=== PATIENT | male | born 1965 | race Caucasian/White ===

== ENCOUNTER 2016-11-15 13:16 | Inpatient (IN) | payer OTHER ==
[~2016-11-15] VITALS: Ht 185.4 cm; Wt 118.7 kg
[~2016-11-15 13:16] MED LIST: CALC500C3 PO; DULO1CAP39 PO; FLM4 PO; FLV1 PO; IPRA1AER2 INH; LCTL45 PO; LSX40 PO; MAGNTAB4 PO; MULT-351 PO; POTA20TA16 PO; PRD20 PO; PRT/40 PO; SPRN100 PO; THIA1TAB11 PO; TPRSR25 PO
--- NOTE | 2016-11-15 13:43 | EMERGENCY ROOM VISIT NOTE ---
History Report prepared by Franchesca: Titi Garcia Under the Supervision of: Dr. Hermila Bernal M.D. First contact with patient: 13:34 Chief Complaint: ABDOMINAL PAIN Stated Complaint: STOMACH History of Present Illness The patient is a 51 year old male who presents to the Emergency Room with complaints of diffuse abdominal pain. His last alcoholic drink was about 30 minutes ago. He was referred to the Emergency Room by his PCP. He has a history of alcoholic cirrhosis of liver. He denies any history of heart disease. HPI is limited secondary to altered mental status. Source of History: patient History Limited By: AMS Position: abdomen (diffuse) Review of Systems ROS is limited secondary to altered mental status. 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 (5) Depression (6) Dyslipidemia (7) Fatty liver (8) History of alcohol abuse (9) History of DVT (deep vein thrombosis) (10) History of hemorrhoids (11) HTN (hypertension) (12) Hyperlipidemia (13) Obstructive sleep apnea (14) Stroke (15) SVT (supraventricular tachycardia) Surgical Problems: (1) H/O adenoidectomy (2) H/O hemorrhoidectomy (3) History of arthroscopic knee surgery (4) Hx of tonsillectomy Social History Problems: (1) Alcohol abuse Family History Cancer FATHER FH: alcoholism FHx: depression Social History Smoking Status: Former Smoker Alcohol Use: heavy Drug Use: none Marital Status: Housing Status: lives alone Occupation Status: employed Current/Historical Medications Scheduled Amitriptyline Hcl (Elavil), 1 TAB PO HS Aspirin (Aspir-81), 1 TAB PO DAILY Calcium Carbonate (Tums), 1,500 MG PO BID Duloxetine HCl (Cymbalta), 1 CAP PO DAILY Folic Acid (Folic Acid), 1 MG PO DAILY Furosemide (Lasix), 20 MG PO DAILY Magnesium Chloride (Slow-Mag Tab), 64 MG PO BID Metoprolol Succinate (Toprol Xl), 50 MG PO DAILY Multiple Vitamin (Multi Vitamin Mens), 1 TAB PO DAILY Pantoprazole (Pantoprazole Sodium), 40 MG PO QPM Potassium Ext Rel (Klor-Con), 20 MEQ PO QPM Prednisolone (Prelone 15MG/5ML), 13.3 ML PO DAILY Spironolactone (Spironolactone), 100 MG PO DAILY Tamsulosin Hcl (Flomax), 0.4 MG PO DAILY Scheduled PRN Ipratropium-Albuterol (Combivent Respimat), 2 PUFFS INH QID PRN for Wheezing Lactulose (Lactulose), 30 GM PO DAILY PRN for Constipation Allergies Coded Allergies: Amlodipine (Verified Allergy, Unknown, nausea/vomiting/shakes, 11/15/16) Physical Exam Vital Signs Date Time Temp Pulse Resp B/P Pulse Ox O2 Delivery O2 Flow Rate FiO2 11/15/16 17:43 118 16 94 11/15/16 17:29 95/81 11/15/16 17:13 122 15 94 11/15/16 17:08 123 22 95 11/15/16 16:58 125/82 11/15/16 16:54 118/75 11/15/16 16:08 129 23 94 11/15/16 15:58 108/75 11/15/16 15:38 128 24 96 11/15/16 15:33 107/69 11/15/16 15:31 126 21 94 11/15/16 15:16 127 22 95 11/15/16 15:01 129 17 93 11/15/16 14:58 103/94 11/15/16 14:46 134 24 95 11/15/16 14:32 113/94 11/15/16 14:31 125 28 95 11/15/16 14:21 114/81 11/15/16 14:20 144 11/15/16 14:16 178 24 11/15/16 14:06 97 Room Air 11/15/16 14:01 183 15 11/15/16 13:46 165 23 11/15/16 13:38 180 11/15/16 13:36 Room Air 11/15/16 13:32 106/84 11/15/16 13:21 36.8 189 18 97 Room Air Physical Exam CONSTITUTIONAL: Appears sedated as if from possible excess ammonia levels or benzodiazepine. Tachycardic on the monitor at 180. HEENT: No icterus, moist mucous membranes NECK: No meningismus, trachea is midline. CARDIOVASCULAR: Regular rate, normal perfusion RESPIRATORY: Unlabored breathing. Clear to auscultation. GASTROINTESTINAL: Diffuse abdominal pain. GENITOURINARY: No flank tenderness MUSCULOSKELETAL: Full range of motion NEUROLOGIC: No acute gross focal deficits. PSYCHIATRIC: Normal affect SKIN: Normal for ethnicity. Medical Decision & Procedures ER Provider Diagnostic Interpretation: X-ray results as stated below per interpretation by me and the radiologist. SINGLE VIEW CHEST CLINICAL HISTORY: Change in mental status. FINDINGS: An AP, portable, upright chest radiograph is compared to study dated 10/03/2016. The examination is degraded by portable technique, large body habitus, and patient rotation. The cardiomediastinal silhouette is unremarkable. The lungs and pleural spaces are clear. No pneumothorax is seen. The bony thorax is grossly intact. IMPRESSION: No active disease in the chest. Electronically signed by: Kyle Nuñez M.D. 11/15/2016 2:08 PM Dictated Date/Time: 11/15/2016 2:[address] results as stated below per my review and radiologist interpretation. HEAD CT NONCONTRAST CT DOSE: 1341.08 mGy.cm HISTORY: Altered mental status. Falls. TECHNIQUE: Multiaxial CT images of the head were performed without the use of intravenous contrast. Automated exposure control was utilized for this study. Comparison: Head CT 09/25/2016. Findings: Trace fluid within the left sphenoid sinus. The mastoid air cells are clear. The calvarium and skull base are intact. There is no mass, hematoma, midline shift, acute infarct. White matter hypodensity is nonspecific but suggestive of microvascular ischemic change. The ventricles and sulci demonstrate mild age-related involutional changes. There is an old small peripheral infarct within the left frontal lobe. This remains unchanged. Impression: No significant change compared to the prior study. No acute intracranial abnormality. Electronically signed by: Suhail Esparza M.D. 11/15/2016 4:49 PM Dictated Date/Time: 11/15/2016 4:[address] DOSE: HISTORY: Altered mental status. Fall. Neck pain. TECHNIQUE: Multiaxial CT images of the cervical spine were performed and reformatted in the sagittal and coronal plane without the use of contrast. COMPARISON: None. FINDINGS: No fractures. No subluxation. Prevertebral soft tissues and the C1-C2 interval are intact. No pneumothorax. IMPRESSION: No fractures within the cervical spine. Electronically signed by: Suhail Esparza M.D. 11/15/2016 4:55 PM Dictated Date/Time: 11/15/2016 4:49 PM Laboratory Results 11/15/16 13:42 Red Blood Count 4.20, Mean Corpuscular Volume 98.3, Mean Corpuscular Hemoglobin 36.0, Mean Corpuscular Hemoglobin Concent 36.6, Mean Platelet Volume 10.6, Neutrophils (%) (Auto) 81.4, Lymphocytes (%) (Auto) 10.0, Monocytes (%) (Auto) 7.6, Eosinophils (%) (Auto) 0.1, Basophils (%) (Auto) 0.2, Neutrophils # (Auto) 14.72, Lymphocytes # (Auto) 1.80, Monocytes # (Auto) 1.38, Eosinophils # (Auto) 0.01, Basophils # (Auto) 0.04 11/15/16 14:11 Test 11/15/16 13:42 11/15/16 14:02 11/15/16 14:11 White Blood Count 18.08 K/uL (4.8-10.8) Red Blood Count 4.20 M/uL (4.7-6.1) Hemoglobin 15.1 g/dL (14.0-18.0) Hematocrit 41.3 % (42-52) Mean Corpuscular Volume 98.3 fL (80-100) Mean Corpuscular Hemoglobin 36.0 pg (25-34) Mean Corpuscular Hemoglobin Concent 36.6 g/dl (32-36) Platelet Count 209 K/uL (130-400) Mean Platelet Volume 10.6 fL (7.4-10.4) Neutrophils (%) (Auto) 81.4 % Lymphocytes (%) (Auto) 10.0 % Monocytes (%) (Auto) 7.6 % Eosinophils (%) (Auto) 0.1 % Basophils (%) (Auto) 0.2 % Neutrophils # (Auto) 14.72 K/uL (1.4-6.5) Lymphocytes # (Auto) 1.80 K/uL (1.2-3.4) Monocytes # (Auto) 1.38 K/uL (0.11-0.59) Eosinophils # (Auto) 0.01 K/uL (0-0.5) Basophils # (Auto) 0.04 K/uL (0-0.2) RDW Standard Deviation 58.5 fL (36.4-46.3) RDW Coefficient of Variation 16.3 % (11.5-14.5) Immature Granulocyte % (Auto) 0.7 % Immature Granulocyte # (Auto) 0.13 K/uL (0.00-0.02) Red Blood Cell Morphology Unremarkable Prothrombin Time 12.3 SECONDS (9.0-12.0) Prothromb Time International Ratio 1.1 (0.9-1.1) Activated Partial Thromboplast Time 28.6 SECONDS (21.0-31.0) Partial Thromboplastin Ratio 1.1 Total Creatine Kinase 43 U/L (39-308) Procalcitonin 0.55 ng/mL (0-0.5) Lyme Disease IgG Antibody NEG (NEG) Lyme Disease IgM Antibody NEG (NEG) Influenza Type A Antigen Neg for Influ A (NEG) Influenza Type B Antigen Neg for Influ B (NEG) Venous Blood pH 7.41 (7.36-7.41) Venous Blood Partial Pressure CO2 39 mmHg (38.0-50.0) Venous Blood Partial Pressure O2 26 mmHg Venous Blood HCO3 24 mmol/L Venous Blood Oxygen Saturation < 60.0 % Venous Blood Base Excess 0.0 mmol/L Anion Gap 19.0 mmol/L (3-11) Est Creatinine Clear Calc Drug Dose 91.6 ml/min Estimated GFR () 80.1 Estimated GFR (Non- 69.1 BUN/Creatinine Ratio 9.7 (10-20) Calcium Level 8.0 mg/dl (8.5-10.1) Phosphorus Level 3.5 mg/dl (2.5-4.9) Magnesium Level 1.5 mg/dl (1.8-2.4) Total Bilirubin 5.4 mg/dl (0.2-1) Direct Bilirubin 4.2 mg/dl (0-0.2) Aspartate Amino Transf (AST/SGOT) 211 U/L (15-37) Alanine Aminotransferase (ALT/SGPT) 101 U/L (12-78) Alkaline Phosphatase 997 U/L (45-117) Ammonia 21.0 umol/L (11-32) Troponin I < 0.015 ng/ml (0-0.045) Total Protein 7.6 gm/dl (6.4-8.2) Albumin 2.9 gm/dl (3.4-5.0) Thyroid Stimulating Hormone (TSH) 3.600 uIu/ml (0.300-4.500) Ethyl Alcohol mg/dL 358.0 mg/dl (0-3) Labs reviewed by ED physician. Medications Administered Medications (Trade) Dose Ordered Sig/Gualberto Route Start Time Stop Time Status Last Admin Dose Admin Ondansetron HCl (Zofran Inj) 4 mg NOW STAT IV 11/15/16 14:01 11/15/16 14:03 DC 11/15/16 14:12 4 MG Adenosine (Adenosine IV) 6 mg NOW STAT IV 11/15/16 14:01 11/15/16 14:03 DC 11/15/16 14:15 6 MG Procedure Cardioversion with adenosine. ECG Indication: abdominal pain, altered mental status Rate (beats per minute): 180 Rhythm: other (Narrow complex, tachycardic) Findings: nonspecific-ST abn, other (Normal axis) ED Course 1334: Past medical records reviewed. The patient was evaluated in room B09. A complete history and physical examination was performed. 1401: Adenosine 6 mg IV, Zofran Inj 4 mg IV 1415: Zofran Inj 4 mg IV 1420: After receiving Adenosine, the patient's heart rate dropped from 180 to 120. 1711: Upon reexamination the patient is resting comfortably. I discussed results and treatment plan with the patient. He verbalizes agreement and understanding. I spoke with KANWAL Molina from the [facility]. The patient will be evaluated for further management. Medical Decision Differential diagnosis includes but is not limited to liver disease, trauma, cardiac dysrhythmia, anemia, electrolyte abnormality. I was called by nursing staff to evaluate patient for heart rate of 180. My examination he appears sedated as if under the influence of mind altering substance. He is awake when prompted and cooperative in no acute distress. He notes he has a history of liver disease and consideration is given to elevated ammonia levels. Toxidromes as well as alcohol intoxication also considered. Patient given Adenosine 6mg IV x 1 with improvement in HR from 180 to 115. Patient reports he lives alone although an extra friend and friend help him get to his doctor's appointments as needed. There is no family or other contacts available to get additional history. Therefore, an extensive screening examination was performed. These tests were notable for WBCs18, hyponatremia 126 with a mild shift, alcohol intoxication as well as ascites. Hospitalization arranged with [facility]. Consults Time Called: 1708 Consulting Physician: KANWAL Molina from the [facility] Returned Call: 1711 I spoke with KANWAL Molina from the [facility]. Impression Primary Impression: Altered mental status Additional Impression: Leukocytosis Critical Care I have personally spent greater than 30 minutes of critical care time in the direct management of this patient. This includes bedside care, interpretation of diagnostic studies, and testing, discussion with consultants, patient, and family members, and other required patient management activities. This 30 minutes is in excess of all separately billable procedures. Scribe Attestation The scribe's documentation has been prepared under my direction and personally reviewed by me in its entirety. I confirm that the note above accurately reflects all work, treatment, procedures, and medical decision making performed by me. Departure Information Dispostion Being Evaluated By Hospitalist Prescriptions Aspirin (ASPIR-81) 81 Mg Tab 1 TAB PO DAILY for 30 Days, #30 TAB 5 Refills Prov: Mina Puckett MD 11/15/16 Amitriptyline Hcl (ELAVIL) 10 Mg Tab 1 TAB PO HS for 30 Days, #30 TAB 1 Refill Prov: Mina Puckett MD 11/15/16 Tamsulosin Hcl (FLOMAX) 0.4 Mg Cap 0.4 MG PO DAILY, #30 CAP Prov: Mina Puckett MD 11/15/16 Referrals No Doctor, Assigned (PCP) Patient Instructions My [facility] Problem Qualifiers
[2016-11-15] MEDS ORDERED: OPTIRAY 320 IV PRN (14:00)
[2016-11-15] MEDS ORDERED: ONDANSETRON INJ 2 MG/ML 2 ML VIAL IV STA (14:01)
[2016-11-15] MEDS ORDERED: ADENOSINE IV SOLN 3 MG/ML 2 ML VIAL IV STA ×2 (14:01)
[2016-11-15 14:08] LABS: PARTIAL THROMBOPLASTIN RATIO 1.1
--- NOTE | 2016-11-15 14:10 | DIAGNOSTIC IMAGING REPORT ---
SINGLE VIEW CHEST CLINICAL HISTORY: Change in mental status. FINDINGS: An AP, portable, upright chest radiograph is compared to study dated 10/03/2016. The examination is degraded by portable technique, large body habitus, and patient rotation. The cardiomediastinal silhouette is unremarkable. The lungs and pleural spaces are clear. No pneumothorax is seen. The bony thorax is grossly intact. IMPRESSION: No active disease in the chest. Electronically signed by: Kyle Nuñez M.D. 11/15/2016 2:08 PM Dictated Date/Time: 11/15/2016 2:08 PM
[2016-11-15] MEDS ORDERED: ONDANSETRON INJ 2 MG/ML 2 ML VIAL IV PRN ×2 (14:15→18:00)
[2016-11-15 14:24] LABS: VEN BLD GAS O2 SATURATION < 60.0 %; VENOUS BLOOD GAS PCO2 39 mmHg (38.0-50.0); VENOUS BLOOD GAS PO2 26 mmHg
[2016-11-15 14:26] LABS: BASO % 0.2 %; BASO ABS # 0.04 K/uL (0-0.2); COMPLETE YES; EOS % 0.1 %; HEMATOCRIT 41.3 % (42-52); IG% 0.7 %; MEAN CELL VOLUME 98.3 fL (80-100); MEAN CORPUSCULAR HGB CONC 36.6 g/dl (32-36); MEAN PLATELET VOLUME 10.6 fL (7.4-10.4); MONO % 7.6 %; NEUT % 81.4 %; PLATELET COUNT 209 K/uL (130-400); WHITE BLOOD COUNT 18.08 K/uL (4.8-10.8)
[2016-11-15 14:58] LABS: PROCALCITONIN 0.55 ng/mL (0-0.5)
[2016-11-15 14:59] LABS: LYME DISEASE AB IGG NEG (NEG); LYME DISEASE AB IGM NEG (NEG)
[2016-11-15 15:27] LABS: INR 1.1 (0.9-1.1); PROTHROMBIN TIME (PATIENT) 12.3 SECONDS (9.0-12.0)
[2016-11-15 15:34] LABS: ALT/SGPT 101 U/L (12-78); AST/SGOT 211 U/L (15-37); BLOOD UREA NITROGEN 12 mg/dl (7-18); BUN/CREATININE RATIO 9.7 (10-20); CARBON DIOXIDE 20 mmol/L (21-32); CHLORIDE 84 mmol/L (98-107); GLUCOSE 123 mg/dl (70-99); MAGNESIUM 1.5 mg/dl (1.8-2.4); POTASSIUM 4.4 mmol/L (3.5-5.1); SODIUM 123 mmol/L (136-145)
[2016-11-15 15:47] LABS: ALKALINE PHOSPHATASE 997 U/L (45-117); PHOSPHORUS 3.5 mg/dl (2.5-4.9)
[2016-11-15] MEDS ORDERED: METO1TAB66 PO (15:53)
[2016-11-15] MEDS ORDERED: FURO-85 PO (15:53)
[2016-11-15] MEDS ORDERED: PRLUDL5 PO (15:53)
[2016-11-15] MEDS ORDERED: CYM/30 PO (15:53)
--- NOTE | 2016-11-15 16:51 | DIAGNOSTIC IMAGING REPORT ---
HEAD CT NONCONTRAST CT DOSE: 1341.08 mGy.cm HISTORY: Altered mental status. Falls. TECHNIQUE: Multiaxial CT images of the head were performed without the use of intravenous contrast. Automated exposure control was utilized for this study. Comparison: Head CT 09/25/2016. Findings: Trace fluid within the left sphenoid sinus. The mastoid air cells are clear. The calvarium and skull base are intact. There is no mass, hematoma, midline shift, acute infarct. White matter hypodensity is nonspecific but suggestive of microvascular ischemic change. The ventricles and sulci demonstrate mild age-related involutional changes. There is an old small peripheral infarct within the left frontal lobe. This remains unchanged. Impression: No significant change compared to the prior study. No acute intracranial abnormality. Electronically signed by: Suhail Esparza M.D. 11/15/2016 4:49 PM Dictated Date/Time: 11/15/2016 4:44 PM
--- NOTE | 2016-11-15 16:57 | DIAGNOSTIC IMAGING REPORT ---
CERVICAL SPINE CT CT DOSE: HISTORY: Altered mental status. Fall. Neck pain. TECHNIQUE: Multiaxial CT images of the cervical spine were performed and reformatted in the sagittal and coronal plane without the use of contrast. COMPARISON: None. FINDINGS: No fractures. No subluxation. Prevertebral soft tissues and the C1-C2 interval are intact. No pneumothorax. IMPRESSION: No fractures within the cervical spine. Electronically signed by: Suhail Esparza M.D. 11/15/2016 4:55 PM Dictated Date/Time: 11/15/2016 4:49 PM
--- NOTE | 2016-11-15 17:22 | DIAGNOSTIC IMAGING REPORT ---
CT ANGIOGRAPHY OF THE CHEST, ABDOMEN, AND PELVIS CLINICAL HISTORY: Altered mental status. Chest and abdominal pain. Falls. COMPARISON STUDY: CT of the abdomen and pelvis October 03, 2016 TECHNIQUE: Before and following the IV administration of 117 mL of Optiray-320, helical axial images of the chest, abdomen and pelvis were obtained. Maximal intensity projections and sagittal and coronal reformats were viewed on an independent 3D workstation. IV contrast was administered without complication. CT DOSE: 3940.95 mGy.cm FINDINGS: The caliber of the thoracic aorta is normal. There is no dissection of the thoracic or abdominal aorta. The size the heart is normal. There is no pericardial effusion. No enlarged thoracic lymph nodes are present. Gynecomastia is noted. There are no areas of consolidation to suggest pneumonia. No pneumothorax or pleural effusion is present. The caliber of the abdominal aorta is normal. There is no evidence for dissection. Marked heterogeneity of the liver is noted with decreased attenuation. The liver is cirrhotic. A 9 mm hypervascular segment 4A lesion shown on image 51 of 143 is unchanged. This is likely benign. A 6.5 x 4.9 x 3.9 cm segment 5 hepatic lesion is noted. This is similar to ultrasound September 25, 2016 but increased in size from earlier exams. Wall thickening of the distal stomach is noted. The spleen, adrenal glands and kidneys are normal with exception of a left renal cyst. There is no evidence for a bowel obstruction. There is colonic diverticulosis without evidence for acute diverticulitis. Wall thickening of portions of the colon, most evident within the ascending colon is noted. Skeletal structures are unremarkable. There is a moderate to large amount of ascites. IMPRESSION: 1. No aortic dissection. No acute process within the chest. 2. Cirrhosis with moderate to large ascites. 3. 6.5 x 4.9 x 3.9 cm hypervascular segment 5 hepatic lesion. This is similar to ultrasound of September 25, 2016 but increased in size from earlier studies. Given cirrhosis, this is concerning for hepatocellular carcinoma and correlation with AFP levels is recommended. Focal nodular hyperplasia could appear similar. 4. Wall thickening of the distal stomach. This could be due to underdistention or gastritis. 5. Colonic wall thickening, most evident within the ascending colon. This is likely due to portal hypertension although colitis could appear similar. Electronically signed by: Dharmesh Hdez M.D. 11/15/2016 5:19 PM Dictated Date/Time: 11/15/2016 4:58 PM
[2016-11-15] MEDS ORDERED: LACTULOSE SYRUP 30 GM/45 ML UDP PO PRN (18:00)
[2016-11-15] MEDS ORDERED: ASPI-232 PO (18:00)
[2016-11-15] MEDS ORDERED: IPRATROPIUM BROMIDE/ALBUTEROL respimat INH INH PRN (18:00)
[2016-11-15] MEDS ORDERED: ALUMINUM/MAGNESIUM/SIMETH (MAALOX MAX) 30 ML UDC PO PRN (18:00)
[2016-11-15] MEDS ORDERED: NITROGLYCERIN 0.4 MG SL PER TAB CHARGE SL PRN (18:00)
[2016-11-15] MEDS ORDERED: AMIT10TA6 PO (18:00)
[2016-11-15] MEDS ORDERED: TAMS0.4C38 PO (18:00)
[2016-11-15] MEDS ORDERED: VANCOMYCIN INJ 1,000 MG in SODIUM CHLORIDE 0.9% 250ML 250 ML IV SCH (18:15)
[2016-11-15] MEDS ORDERED: PIPERACILL/TAZOBAC IV 3.375 GM in DEXTROSE 5% 100ML 100 ML IV SCH (18:15)
[2016-11-15 19:10] VITALS: BP 120/84; PULSE 122; TEMP 36.7; O2SAT 95; Ht 185.4 cm; Wt 118.7 kg
[2016-11-15] MEDS ORDERED: VANCOMYCIN CONSULT ACTIVE PRN (19:45)
[2016-11-15] MEDS ORDERED: PIPERACILL/TAZOBAC CONSULT ACTIVE PRN (19:45)
[2016-11-15] MEDS: MAGNESIUM SULFATE 1GM / D5W 1 GM in PREMIXED IN D5W 100 ML IV SCH ×2 (19:57→20:30)
[2016-11-15] MEDS: MAGNESIUM CHLORIDE 64MG DELAYED REL TAB PO SCH (19:58)
[2016-11-15] MEDS: CALCIUM CARBONATE 500 MG CHEWABLE PO SCH (19:58)
[2016-11-15] MEDS: AMITRIPTYLINE HCL 10 MG TAB PO SCH (19:58)
[2016-11-15] MEDS ORDERED: MULTI-VITAMIN INFUSION INJ 10 ML, THIAMINE HCL INJ 100 MG, FoLIC ACID INJ 1 MG in SODIU... IV ONE ×2 (20:00→20:15)
[2016-11-15] MEDS ORDERED: PIPERACILL/TAZOBAC IV 3.375 GM in DEXTROSE 5% 100ML IV ONE (20:00)
--- NOTE | 2016-11-15 20:04 | Pharmacy Progress Note ---
Pharmacy Antibiotic Consult Date of Service: Nov 15, 2016. Pharmacy Dosing Scope Pharmacy is consulted to initiate VANCOMYCIN / ZOSYN IV dosing therapy, order appropriate labs and adjust drug dose/frequency. Subjective The patient is a 51 year old male admitted on Nov 15, 2016 at 18:03. Objective Height (Feet): 6 Height (Inches): 1.00 Weight (Kilograms): 111.900 Lab Results (24hrs): Laboratory Tests Test 11/15/16 13:42 11/15/16 14:11 White Blood Count 18.08 K/uL Red Blood Count 4.20 M/uL Hemoglobin 15.1 g/dL Hematocrit 41.3 % Mean Corpuscular Volume 98.3 fL Mean Corpuscular Hemoglobin 36.0 pg Mean Corpuscular Hemoglobin Concent 36.6 g/dl Platelet Count 209 K/uL Mean Platelet Volume 10.6 fL Neutrophils (%) (Auto) 81.4 % Lymphocytes (%) (Auto) 10.0 % Monocytes (%) (Auto) 7.6 % Eosinophils (%) (Auto) 0.1 % Basophils (%) (Auto) 0.2 % Neutrophils # (Auto) 14.72 K/uL Lymphocytes # (Auto) 1.80 K/uL Monocytes # (Auto) 1.38 K/uL Eosinophils # (Auto) 0.01 K/uL Basophils # (Auto) 0.04 K/uL BUN/Creatinine Ratio 9.7 Blood Urea Nitrogen 12 mg/dl Creatinine 1.20 mg/dl Assessment & Plan 51yo male admitted with diffuse abdominal pain, ordered VANCOMYCIN / ZOSYN. VANCOMYCIN: * Loading dose: VANCOMYCIN 2800mg (25mg/kg) IV X 1 dose then VANCOMYCIN 1700mg (15mg/kg) IV every 12 hours. * Goal trough level estimate: between 15 - 20 mcg/mL. * Estimated Pk parameters: Vd ~0.7 L/kg ke ~0.08 t1/2 ~9 hours * Trough level has been ordered for: . Pharmacy will continue to follow and will adjust dose/frequency as necessary. Thank you
[2016-11-15] MEDS ORDERED: VANCOMYCIN INJ 2,800 MG in SODIUM CHLORIDE 0.9% 500ML 500 ML IV SCH (20:30)
[2016-11-15] MEDS: CHLORDIAZEPOXIDE 25 MG CAP PO SCH (20:33)
[2016-11-15] MEDS ORDERED: PANTOprazole SOD 40 MG TAB PO SCH (21:00)
--- NOTE | 2016-11-15 22:59 | HISTORY & PHYSICAL EXAMINATION ---
DATE OF ADMISSION: 11/15/2016 CHIEF COMPLAINT: Abnormal labs and alcoholism. HISTORY OF PRESENT ILLNESS: This is a 51-year-old male with a past medical history significant for hypertension, asthma, hyperlipidemia, morbid obesity, sleep apnea, anxiety, history of snuff use, history of alcoholism with multiple admissions, liver cirrhosis, hepatorenal syndrome, history of SVT, history of alcoholic cardiomyopathy, history of hypomagnesemia was advised to come to the hospital because his outpatient labs done couple of days ago showed increased ammonia level, alcohol level 292, increased leukocytosis, hyponatremia, worsening LFTs and thought if some infectious process was going on. The patient is alert and oriented, says last drink was today morning; he drank 2 glasses of vodka. He has not stopped drinking though counseled in the past and was in the rehab in the past. The patient says his ambulatory function is poor at home. He lives alone, but a lady comes and helps him and his family helps him. He states he goes with the lady to get his drinks. He says, recently he bought a casket and bought piece of land to bury him and he was preparing for his . He thinks it is coming, but patient says he wanted to be a full code in case there is a chance of recovery. He complains of pain all over the body. He denies any shortness of breath, cough, blurred vision or dizziness. No nausea, no vomiting. He has some abdominal discomfort, had a small bowel movement yesterday. Currently is afebrile. The patient was tachycardic and heart rate was in the 180s in the ER. After 6 mg of adenosine his heart rate is currently in the 120s, blood pressure is stable, alert, oriented and answering all the questions appropriately. ALLERGIES: TO AMLODIPINE. PAST MEDICAL HISTORY: As mentioned above. PAST SURGICAL HISTORY: Hemorrhoidectomy with internal banding, right knee arthroscopy, tonsillectomy and adenoidectomy. MEDICATIONS: The patient is on Toprol-XL 50 mg p.o. daily, Lasix 20 mg p.o. daily, prednisolone 13.3 mL p.o. daily, Cymbalta 30 mg p.o. daily and Klor-Con 40 mEq b.i.d., promethazine 25 mg one tablet every 6 hours p.r.n., magnesium 64 mg p.o. b.i.d., Celexa 20 mg p.o. daily, Flomax 0.4 mg p.o. daily, folic acid 1 mg p.o. daily, Aldactone 100 mg p.o. daily, Protonix 40 mg p.o. daily, amitriptyline 10 mg p.o. at bedtime, Combivent 2 puffs four times daily as needed and aspirin 81 mg p.o. daily. FAMILY HISTORY: Father had colon and pancreatic cancer at 67 years of age. Mother had rheumatic heart disease. SOCIAL HISTORY: Former smoker, quit in 1984, smoked half pack a day for 1 year. Snuff one can every two months. Heavy alcohol use and multiple admissions. No drug use. Currently he is living alone and a lady comes and helps him. REVIEW OF SYMPTOMS: As per HPI. Rest of the review of symptoms is negative. PHYSICAL EXAMINATION: GENERAL: The patient is morbidly obese, not in acute distress. VITAL SIGNS: Temperature 36.8, pulse in 120s now, blood pressure 101/75 and oxygen 95% on room air. HEENT: No pallor or icterus present. Pupils are equal, round and reactive to light. NECK: No JVD, no neck masses, no carotid bruits. CARDIOVASCULAR: S1, S2 heard. Tachycardia. No murmurs. RESPIRATORY SYSTEM: Clear to auscultation bilaterally. No accessory muscle use. No wheezing, no crackles. ABDOMEN: Soft, bowel sounds present. Mild diffuse discomfort. Mild distention. CENTRAL NERVOUS SYSTEM: Cranial nerves II-XII are grossly intact. Nonfocal. EXTREMITIES: No edema, no erythema. LABORATORIES: WBC 18.08, hemoglobin 15.1, hematocrit 41.3, platelets 209. Sodium 123, potassium 4.4, chloride 20, BUN 12, creatinine 1.2, serum glucose 123, calcium 8, phosphorous 3.5, magnesium 1.5, total bilirubin 5.4, direct bilirubin 4.2, AST 211, ALT 101, alkaline phosphatase 997. Ammonia level 21, total creatinine kinase 43, troponin I less than 0.015. Procalcitonin 0.55. TSH 3.6. PT 12.3, INR 1.1, PTT 28.6. Venous blood gases; pH 7.4, pCO2 39, pO2 26, bicarbonate 24, oxygen less than 60%. Toxicology; ethyl alcohol level 358. Lyme disease; negative. Negative for influenza. CT of the head scan; no significant change compared to prior study, no acute intracranial abnormalities seen. Chest x-ray; no acute disease in the chest. Cervical spine CT; no fractures of the cervical spine. CT angiogram of the chest, abdomen and pelvis; no aortic dissection or acute process within the chest. Cirrhosis with moderate to large ascites 6.5 x 4.9 x 3.9 cm hepatic lesion; this is similar to ultrasound of August 2016, but increased in size from the earlier studies. Given cirrhosis, this is concerning for hepatocellular carcinoma and correlation is recommended. Focal nodular hyperplasia could appear similar. EKG showed SVT at the rate of 179 when the patient initially came in. Repeat EKG showed sinus tachycardia with a rate of 122. Nonspecific ST change is seen. ASSESSMENT AND PLAN: This is a 51-year-old with chronic alcoholism, who was sent in because of abnormal laboratories and possible sepsis. 1. Possible sepsis, source could be spontaneous bacterial peritonitis with tachycardia and elevated white count. We will place him on IV Zosyn and IV vancomycin. We will do blood cultures, urine cultures and may tap ascitic fluid for any infection We will follow lactic acid levels. We will place him on IV normal saline at 100 mL for now and closely monitor on the tele floor. 2. Alcoholism. He recently was in the hospital in September for alcoholic hepatitis and electrolyte abnormalities. He was placed on prednisone which was supposed to be tapered.Will continue current home dose of prednisolone; Discriminant score is not that high. The patient continues to drink in spite of previous rehab and counseling. He says he is preparing for his . His ammonia level is okay. We will give him banana bag and place on Librium around the clock and Ativan p.r.n. for alcohol withdrawal and closely monitor on the tele floor. 3. Question of liver mass which has increased in size from the previous ultrasound in August, but MRI done as outpatient and there was no suggestion of hepatocellular carcinoma, but his AFP level was somewhat high. We will consult gastroenterology for further opinion. 4. History of thrombocytopenia .Ok today. We will follow laboratories. 5. History of generalized weakness, pain and fall secondary to his alcoholism. Physical and occupational therapies when patient is more stable. 6. History of stroke, no residual deficits. We are holding aspirin for now. 7. History of depression, on Cymbalta. We will follow his liver function tests. 8. History of chronic systolic heart failure secondary to alcoholic cardiomyopathy, we will be holding the diuretics for now for sepsis. We will monitor for any volume overload. Echocardiogram done on last admission in September shows ejection fraction of 60-65% and grade 1 diastolic dysfunction. 9. History of deep vein thrombosis in the right cephalic vein in 2013, not on any anticoagulation. 10. History of supraventricular tachycardia. The patient received adenosine in the Emergency Room. Missed his Lopressor today. We will continue his home dose of metoprolol with the holding parameters. If any issues, we will consult cardiology. His nuclear stress in 2013 was nonischemic. 11. Hyponatremia; sodium is 123, mostly secondary to his alcoholism and it improved with normal fluids on last admission. We will follow laboratories closely to prevent overcorrection. If not improving, we will consult nephrology. Hold diuretics. Deep venous thrombosis prophylaxis, SCDs for now. DISPOSITION: Admit to tele floor. Level 1. Full code, as per discussion with the patient only on the chance of recovery. Closely monitor on tele floor. MTDD
[2016-11-15 23:54] VITALS: BP 95/68; PULSE 112; TEMP 36.7; O2SAT 98
[2016-11-16 00:19] LABS: URINE APPEARANCE CLOUDY (CLEAR); URINE COLOR ORANGE; URINE NITRITE POS (NEG); URINE PH 5.5 (4.5-7.5); URINE SPECIFIC GRAVITY > 1.045 (1.000-1.030); UROBILINOGEN POS (NEG); ZZUR CULT IF INDIC CLEAN CATCH NO
[2016-11-16 00:42] LABS: MANUAL MICROSCOPIC REQUIRED? NO; REVIEW REQ? YES; URINE BILIRUBIN 2+ (NEG)
[2016-11-16 01:00] LABS: BENZODIAZEPINE, URINE POS (NEG); COCAINE,URINE NEG (NEG); PHENCYCLIDINE, URINE NEG (NEG)
[2016-11-16] MEDS: LORAZEPAM 2 MG/ML 1 ML VIAL IV PRN ×6 (01:04→12:58)
[2016-11-16] MEDS: PIPERACILL/TAZOBAC IV 3.375 GM in DEXTROSE 5% 100ML IV SCH ×3 (01:54→17:33)
[2016-11-16 02:12] LABS: BUN/CREATININE RATIO 11.7 (10-20); CALCIUM 7.2 mg/dl (8.5-10.1); CREATININE 1.2 mg/dl (0.60-1.40); POTASSIUM 4.4 mmol/L (3.5-5.1)
[2016-11-16] MEDS ORDERED: SODIUM CHLORIDE 0.9% 1000ML 1,000 ML IV SCH ×3 (02:15→06:30)
[2016-11-16] MEDS ORDERED: SODIUM CHLORIDE 0.9% 1000ML 1,000 ML IV ONE (02:15)
[2016-11-16 04:18] VITALS: BP 108/66; PULSE 125; TEMP 37; O2SAT 96
[2016-11-16] MEDS: SODIUM CHLORIDE 0.9% 1000ML 1,000 ML IV SCH ×2 (06:12→09:48)
[2016-11-16 06:42] LABS: HEMATOCRIT 32.5 % (42-52); MEAN CELL VOLUME 96.2 fL (80-100); MEAN CORPUSCULAR HEMOGLOBIN 36.1 pg (25-34); MEAN CORPUSCULAR HGB CONC 37.5 g/dl (32-36); MEAN PLATELET VOLUME 10.6 fL (7.4-10.4); PLATELET COUNT 132 K/uL (130-400); RED BLOOD COUNT 3.38 M/uL (4.7-6.1); WHITE BLOOD COUNT 16.97 K/uL (4.8-10.8)
--- NOTE | 2016-11-16 06:44 | Progress Note ---
Internal Med Progress Note Date of Service: Nov 16, 2016. Provider Documentation: Lactic acid worsening 3 to 4.4 SBP 90s CR 120s AP Hypotension sepsis, hyoovolemia hold BB for now, increase IVF ff lactic acid CS, continue Cristopher Mejias Vital Signs: Date Time Temp Pulse Resp B/P Pulse Ox O2 Delivery O2 Flow Rate FiO2 11/16/16 04:18 37.0 125 17 108/66 96 Nasal Cannula 2.0 11/16/16 04:00 Nasal Cannula 2.0 11/15/16 23:59 Nasal Cannula 2.0 11/15/16 23:54 36.7 112 21 95/68 98 Nasal Cannula 2.0 11/15/16 19:10 36.7 122 18 120/84 95 Nasal Cannula 2.0 11/15/16 17:43 118 16 94 11/15/16 17:29 95/81 11/15/16 17:13 122 15 94 11/15/16 17:08 123 22 95 11/15/16 16:58 125/82 11/15/16 16:54 118/75 11/15/16 16:08 129 23 94 11/15/16 15:58 108/75 11/15/16 15:38 128 24 96 11/15/16 15:33 107/69 11/15/16 15:31 126 21 94 11/15/16 15:16 127 22 95 11/15/16 15:01 129 17 93 11/15/16 14:58 103/94 11/15/16 14:46 134 24 95 11/15/16 14:32 113/94 11/15/16 14:31 125 28 95 11/15/16 14:21 114/81 11/15/16 14:20 144 11/15/16 14:16 178 24 11/15/16 14:06 97 Room Air 11/15/16 14:01 183 15 11/15/16 13:46 165 23 11/15/16 13:38 180 11/15/16 13:36 Room Air 11/15/16 13:32 106/84 11/15/16 13:21 36.8 189 18 97 Room Air Lab Results: Results Past 24 Hours Test 11/15/16 13:42 11/15/16 14:02 11/15/16 14:11 11/15/16 19:24 Range/Units White Blood Count 18.08 4.8-10.8 K/uL Red Blood Count 4.20 4.7-6.1 M/uL Hemoglobin 15.1 14.0-18.0 g/dL Hematocrit 41.3 42-52 % Mean Corpuscular Volume 98.3 80-100 fL Mean Corpuscular Hemoglobin 36.0 25-34 pg Mean Corpuscular Hemoglobin Concent 36.6 32-36 g/dl Platelet Count 209 130-400 K/uL Mean Platelet Volume 10.6 7.4-10.4 fL Neutrophils (%) (Auto) 81.4 % Lymphocytes (%) (Auto) 10.0 % Monocytes (%) (Auto) 7.6 % Eosinophils (%) (Auto) 0.1 % Basophils (%) (Auto) 0.2 % Neutrophils # (Auto) 14.72 1.4-6.5 K/uL Lymphocytes # (Auto) 1.80 1.2-3.4 K/uL Monocytes # (Auto) 1.38 0.11-0.59 K/uL Eosinophils # (Auto) 0.01 0-0.5 K/uL Basophils # (Auto) 0.04 0-0.2 K/uL RDW Standard Deviation 58.5 36.4-46.3 fL RDW Coefficient of Variation 16.3 11.5-14.5 % Immature Granulocyte % (Auto) 0.7 % Immature Granulocyte # (Auto) 0.13 0.00-0.02 K/uL Red Blood Cell Morphology Unremarkable Prothrombin Time 12.3 9.0-12.0 SECONDS Prothromb Time International Ratio 1.1 0.9-1.1 Activated Partial Thromboplast Time 28.6 21.0-31.0 SECONDS Partial Thromboplastin Ratio 1.1 Total Creatine Kinase 43 39-308 U/L Procalcitonin 0.55 0-0.5 ng/mL Lyme Disease IgG Antibody NEG NEG Lyme Disease IgM Antibody NEG NEG Influenza Type A Antigen Neg for Influ A NEG Influenza Type B Antigen Neg for Influ B NEG Venous Blood pH 7.41 7.36-7.41 Venous Blood Partial Pressure CO2 39 38.0-50.0 mmHg Venous Blood Partial Pressure O2 26 mmHg Venous Blood HCO3 24 mmol/L Venous Blood Oxygen Saturation < 60.0 % Venous Blood Base Excess 0.0 mmol/L Sodium Level 123 136-145 mmol/L Potassium Level 4.4 3.5-5.1 mmol/L Chloride Level 84 98-107 mmol/L Carbon Dioxide Level 20 21-32 mmol/L Anion Gap 19.0 3-11 mmol/L Blood Urea Nitrogen 12 7-18 mg/dl Creatinine 1.20 0.60-1.40 mg/dl Est Creatinine Clear Calc Drug Dose 91.6 ml/min Estimated GFR () 80.1 Estimated GFR (Non- 69.1 BUN/Creatinine Ratio 9.7 1020 Random Glucose 123 70-99 mg/dl Calcium Level 8.0 8.5-10.1 mg/dl Phosphorus Level 3.5 2.5-4.9 mg/dl Magnesium Level 1.5 1.8-2.4 mg/dl Total Bilirubin 5.4 0.2-1 mg/dl Direct Bilirubin 4.2 0-0.2 mg/dl Aspartate Amino Transf (AST/SGOT) 211 15-37 U/L Alanine Aminotransferase (ALT/SGPT) 101 12-78 U/L Alkaline Phosphatase 997 45-117 U/L Ammonia 21.0 11-32 umol/L Troponin I < 0.015 0-0.045 ng/ml Total Protein 7.6 6.4-8.2 gm/dl Albumin 2.9 3.4-5.0 gm/dl Thyroid Stimulating Hormone (TSH) 3.600 0.300-4.500 uIu/ml Ethyl Alcohol mg/dL 358.0 0-3 mg/dl Lactic Acid Level 3.5 0.4-2.0 mmol/L Test 11/15/16 23:55 11/16/16 00:55 11/16/16 01:34 11/16/16 06:05 Range/Units Urine Color ORANGE Urine Appearance CLOUDY CLEAR Urine pH 5.5 4.5-7.5 Urine Specific [place] > 1.045 1.000-1.030 Urine Protein TRACE NEG Urine Glucose (UA) NEG NEG Urine Ketones NEG NEG Urine Occult Blood NEG NEG Urine Nitrite POS NEG Urine Bilirubin 2+ NEG Urine Urobilinogen POS NEG Urine Leukocyte Esterase TRACE NEG Urine WBC (Auto) 1-5 0-5 /hpf Urine RBC (Auto) 0-4 0-4 /hpf Urine Hyaline Casts (Auto) 10-30 0-5 /lpf Urine Epithelial Cells (Auto) 10-20 0-5 /lpf Urine Bacteria (Auto) NEG NEG Urine Pathogenic Casts 0 /lpf Urine Opiates Screen NEG NEG Urine Methadone, Qualitative NEG NEG Urine Barbiturates NEG NEG Urine Phencyclidine (PCP) Level NEG NEG Ur Amphetamine/Methamphetamine NEG NEG MDMA (Ecstasy) Screen NEG NEG Urine Benzodiazepines Screen POS NEG Urine Cocaine Metabolite NEG NEG Urine Marijuana (THC) NEG NEG Lactic Acid Level 4.4 0.4-2.0 mmol/L Sodium Level 126 136-145 mmol/L Potassium Level 4.4 3.5-5.1 mmol/L Chloride Level 87 98-107 mmol/L Carbon Dioxide Level 28 21-32 mmol/L Anion Gap 11.0 3-11 mmol/L Blood Urea Nitrogen 14 7-18 mg/dl Creatinine 1.20 0.60-1.40 mg/dl Est Creatinine Clear Calc Drug Dose 94.4 ml/min Estimated GFR () 80.1 Estimated GFR (Non- 69.1 BUN/Creatinine Ratio 11.7 10-20 Random Glucose 87 70-99 mg/dl Osmolality 300 280-300 mOsm/kg Calcium Level 7.2 8.5-10.1 mg/dl Albumin 2.4 3.4-5.0 gm/dl Test 11/16/16 06:17 Range/Units White Blood Count 16.97 4.8-10.8 K/uL Red Blood Count 3.38 4.7-6.1 M/uL Hemoglobin 12.2 14.0-18.0 g/dL Hematocrit 32.5 42-52 % Mean Corpuscular Volume 96.2 80-100 fL Mean Corpuscular Hemoglobin 36.1 25-34 pg Mean Corpuscular Hemoglobin Concent 37.5 32-36 g/dl Platelet Count 132 130-400 K/uL Mean Platelet Volume 10.6 7.4-10.4 fL RDW Standard Deviation 56.5 36.4-46.3 fL RDW Coefficient of Variation 16.2 11.5-14.5 % Microbiology Results 11/16/16 Blood Culture, Received Pending 11/16/16 Blood Culture, Received Pending 11/15/16 Urine Culture, Received Pending
[2016-11-16 07:13] LABS: ALB/GLOB RATIO 0.6 (0.9-2); BUN/CREATININE RATIO 11.2 (10-20); CALCIUM 7.1 mg/dl (8.5-10.1); CREATININE 1.3 mg/dl (0.60-1.40); MAGNESIUM 1.3 mg/dl (1.8-2.4); POTASSIUM 4.9 mmol/L (3.5-5.1)
[2016-11-16 07:32] VITALS: BP 110/77; PULSE 125; TEMP 37; O2SAT 94
[2016-11-16 07:42] LABS: COMPLETE YES; HYPOCHROMIA PRESENT; META ABS # 0.14 K/uL (0-0); METAMYELOCYTE % 0.8 %; NEUTROPHILS % 99.2 %; POLYCHROMASIA 1+
[2016-11-16] MEDS: VANCOMYCIN INJ 1,700 MG in SODIUM CHLORIDE 0.9% 500ML 500 ML IV SCH ×2 (08:04→19:46)
[2016-11-16] MEDS: MAGNESIUM SULFATE 1GM / D5W 1 GM in PREMIXED IN D5W 100 ML IV SCH ×3 (08:04→09:48)
[2016-11-16] MEDS: TAMSULOSIN HCL 0.4 MG CAP PO SCH (08:05)
[2016-11-16] MEDS: FoLIC ACID INJ 1 MG in SYRINGE 9.8 ML IV SCH (08:05)
[2016-11-16] MEDS: MULTIVITAMIN TAB PO SCH (08:05)
[2016-11-16] MEDS: DULOXETINE (CYMBALTA) 30 MG CAP PO SCH (08:05)
[2016-11-16] MEDS: THIAMINE HCL INJ 100 MG in SYRINGE 9 ML IV SCH (08:05)
[2016-11-16] MEDS: LACTULOSE SYRUP 30 GM/45 ML UDP PO SCH (08:06)
[2016-11-16] MEDS: MAGNESIUM CHLORIDE 64MG DELAYED REL TAB PO SCH ×2 (08:06→20:28)
[2016-11-16] MEDS: CEROVITE ADV FORMULA TAB PO SCH (08:06)
[2016-11-16] MEDS: CALCIUM CARBONATE 500 MG CHEWABLE PO SCH ×2 (08:07→20:29)
[2016-11-16] MEDS: CHLORDIAZEPOXIDE 25 MG CAP PO SCH ×3 (08:14→21:35)
[2016-11-16 08:39] VITALS: BP 115/75
[2016-11-16] MEDS ORDERED: prednisoLONE SYRUP 15 MG/5 ML PO SCH (09:00)
[2016-11-16] MEDS ORDERED: METOPROLOL SUCC 25MG EXT REL TAB PO SCH (09:00)
[2016-11-16] MEDS ORDERED: METOPROLOL SUCC 50MG EXT REL TAB PO SCH (09:00)
[2016-11-16] MEDS ORDERED: FUROSEMIDE 40 MG TAB PO ONE (11:15)
[2016-11-16] MEDS ORDERED: SPIRONOLACTONE 100 MG TAB PO ONE (11:15)
[2016-11-16 11:25] VITALS: BP 123/80; PULSE 130; TEMP 37.2; O2SAT 92
[2016-11-16] MEDS: D5W AND NSS 1,000 ML IV SCH ×2 (13:30→19:15)
--- NOTE | 2016-11-16 15:01 | DIAGNOSTIC IMAGING REPORT ---
ULTRASOUND GUIDED DIAGNOSTIC PARACENTESIS CLINICAL HISTORY: Ascites. COMPARISON STUDY: CT of the chest, abdomen and pelvis November 15, 2016. PROCEDURE: The patient was unable to give consent due to altered mental status. Therefore, the risks, benefits, and alternatives to the procedure were discussed with the patient's power of museum host/hostess including the risk of bleeding, infection and injury to adjacent structures. They agreed to the procedure and informed written consent was obtained. Following real-time ultrasound localization, the skin of the right lower quadrant was prepped and draped. Following local anesthesia with Xylocaine, the sheath paracentesis needle was inserted and approximately 1 liters of straw-colored fluid was removed by vacuum suction. The fluid was sent to the laboratory for analysis as ordered. The patient tolerated the procedure well and no immediate complications were evident. IMPRESSION: Ultrasound-guided diagnostic paracentesis with removal of 1 liters of ascites. The fluid was sent to the laboratory for analysis. Electronically signed by: Dharmesh Hdez M.D. 11/16/2016 2:59 PM Dictated Date/Time: 11/16/2016 2:58 PM
[2016-11-16 15:46] VITALS: BP 121/66; PULSE 73; TEMP 37.1; O2SAT 98
--- NOTE | 2016-11-16 16:20 | Gastrointestinal Consultation ---
Gastrointestinal Consultation Date of Consultation: Nov 16, 2016 Attending Physician: Mina Puckett Consulting Physician: Jeremie Obrien Reason for Consultation: Cirrhosis History of Present Illness Patient is a 51 year old male w ETOH cirrhosis who I referred to the ED for admission due to increased WBC over 17K and increasing LFTs in outpt labs. I saw pt at GI clinic on 11/13/16 accompanied by his cousin, for f/u after pt's hospitalization in September for ETOH hepatitis. He had completed 1 month's worth of Prednisolone. He was found to have slow in mentation, also smells of ETOH, c/o abd pressure and distension. He recently also had a fall and his head , but refused ED visit for eval. His cousin Dilan had mentioned pt has a " wish" started to look as casket and finalizing his will. Outpt labs ordered including CBC, CMP, PT/INR. It was noted that his WBC is rising to 17K, previously around 14K suspected to be elevated due to steroid use. His H/H is stable at 14/40. He was hyponatremic at 129, normal BUN/Cr, LFT w Tbili of 4.6, AST 260, ALT 106, AP 846. His ammonia level was elevated at 70, ETOH level 292. I called pt's caregiver and advised him to come to ED for eval and treatment. Upon arrival, repeat labs similar to above values. He had several workup including head CT, CXR, cervical xray - unremarkable. His blood and urine cx pending. He did have CT angiography w evidence of cirrhotic liver, large ascites , about 6cm sized hypervascular segment 5 liver lesion suspicious for HCC. This had been evaluated by liver MRI and suspected to be macrogenerative nodule. His AFP was borderline elevated previously and he was referred to Hepatology at [facility] for liver lesion eval but never had appt set up. Currently pt is sedated for DTs. He has been receiving Librium and Ativan. He opens eyes when name called, could only answer simple yes/no to questions. He is confused, oriented to place though. He is c/o abdominal pressure, not pain. Limited ROS could be obtained. Past Medical/Surgical History Medical Problems: (1) Alcoholic cirrhosis of liver with ascites Status: Acute (2) Altered mental status Status: Acute (3) Decreased vision in both eyes Status: Acute (4) Leukocytosis Status: Acute (5) TIA (transient ischemic attack) Status: Acute Past Surgical History: Hemorrhoidectomy T&A Arthroscopic knee surgery Family History Cancer FATHER FH: alcoholism FHx: depression Social History Smoking Status: Former Smoker Alcohol Use: heavy (At least 3 bottles of Vodka a week per his cousin's report) Drug Use: none Marital Status: Housing Status: lives alone Occupation Status: employed Allergies Coded Allergies: Amlodipine (Verified Allergy, Unknown, nausea/vomiting/shakes, 11/15/16) Current Medications Home Meds and Scripts Medications Dose Route/Sig Max Daily Dose Days Date Category Aspir-81 (Aspirin) 81 Mg Tab 1 Tab PO DAILY 30 11/15/16 Rx Elavil (Amitriptyline Hcl) 10 Mg Tab 1 Tab PO HS 30 11/15/16 Rx Flomax (Tamsulosin Hcl) 0.4 Mg Cap 0.4 Mg PO DAILY 11/15/16 Rx Prelone 15MG/5ML (Prednisolone) 15 Mg/5 Ml Syrp 13.3 Ml PO DAILY 11/15/16 Reported Cymbalta (Duloxetine HCl) 30 Mg Cap 1 Cap PO DAILY 11/15/16 Reported Toprol Xl (Metoprolol Succinate) 50 Mg Tab 50 Mg PO DAILY 11/15/16 Reported Lactulose 30 Gm/45 Ml Syrp 30 Gm PO DAILY PRN 30 10/06/16 Rx Spironolactone 100 Mg Tab 100 Mg PO DAILY 30 10/06/16 Rx Tums (Calcium Carbonate) 500 Mg Chew 1,500 Mg PO BID 10/03/16 Reported Klor-Con (Potassium Chloride) 20 Meq Tabcr 20 Meq PO QPM 11/17/15 Reported Slow-Mag Tab (Magnesium Chloride) 64 Mg Tabcr 64 Mg PO BID 11/17/15 Reported Combivent Respimat (Ipratropium-Albuterol) 1 Aer Aer 2 Puffs INH QID PRN 06/12/14 Reported Pantoprazole Sodium (Pantoprazole) 40 Mg Tab 40 Mg PO QPM 06/12/14 Reported Folic Acid 1 Mg Tab 1 Mg PO DAILY 06/12/14 Reported Multi Vitamin Mens (Multiple Vitamin) 1 Tab Tab 1 Tab PO DAILY 06/12/14 Reported Review of Systems Constitutional: + see HPI, No fever Respiratory: No cough, No shortness of breath Abdomen: + see HPI Neuro: + see HPI Physical Exam Date Time Temp Pulse Resp B/P Pulse Ox O2 Delivery O2 Flow Rate FiO2 11/16/16 15:46 37.1 73 22 121/66 98 11/16/16 12:00 Nasal Cannula 11/16/16 11:25 37.2 130 16 123/80 92 Room Air 11/16/16 08:39 115/75 11/16/16 08:00 Nasal Cannula 11/16/16 07:32 37.0 125 18 110/77 94 Room Air 11/16/16 04:18 37.0 125 17 108/66 96 Nasal Cannula 2.0 11/16/16 04:00 Nasal Cannula 2.0 11/15/16 23:59 Nasal Cannula 2.0 11/15/16 23:54 36.7 112 21 95/68 98 Nasal Cannula 2.0 11/15/16 19:10 36.7 122 18 120/84 95 Nasal Cannula 2.0 11/15/16 17:43 118 16 94 11/15/16 17:29 95/81 11/15/16 17:13 122 15 94 11/15/16 17:08 123 22 95 11/15/16 16:58 125/82 11/15/16 16:54 118/75 11/15/16 16:08 129 23 94 11/15/16 15:58 108/75 General Appearance: + pertinent finding (Appears sedated) Respiratory/Chest: no respiratory distress, no accessory muscle use, + decreased breath sounds Cardiovascular: regular rate, rhythm, no gallop, no murmur Abdomen: non tender, + abnormal bowel sounds (hypoactive), + distended Extremities: + swelling (trace edema) Neurologic/Psych: + pertinent finding (sedated, undergoing DTs) Skin: + jaundice Laboratory Results Last 24 Hours Test 11/15/16 19:24 11/15/16 23:55 11/16/16 00:00 11/16/16 00:55 Lactic Acid Level 3.5 mmol/L 4.4 mmol/L Urine Color ORANGE Urine Appearance CLOUDY Urine pH 5.5 Urine Specific [place] > 1.045 Urine Protein TRACE Urine Glucose (UA) NEG Urine Ketones NEG Urine Occult Blood NEG Urine Nitrite POS Urine Bilirubin 2+ Urine Urobilinogen POS Urine Leukocyte Esterase TRACE Urine WBC (Auto) 1-5 /hpf Urine RBC (Auto) 0-4 /hpf Urine Hyaline Casts (Auto) 10-30 /lpf Urine Epithelial Cells (Auto) 10-20 /lpf Urine Bacteria (Auto) NEG Urine Pathogenic Casts /lpf Urine Opiates Screen NEG Urine Methadone, Qualitative NEG Urine Barbiturates NEG Urine Phencyclidine (PCP) Level NEG Ur Amphetamine/Methamphetamine NEG MDMA (Ecstasy) Screen NEG Urine Benzodiazepines Screen POS Urine Cocaine Metabolite NEG Urine Marijuana (THC) NEG Test 11/16/16 01:34 11/16/16 06:05 11/16/16 06:17 11/16/16 11:55 Sodium Level 126 mmol/L 125 mmol/L 124 mmol/L Potassium Level 4.4 mmol/L 4.9 mmol/L Chloride Level 87 mmol/L 89 mmol/L Carbon Dioxide Level 28 mmol/L 21 mmol/L Anion Gap 11.0 mmol/L 15.0 mmol/L Blood Urea Nitrogen 14 mg/dl 15 mg/dl Creatinine 1.20 mg/dl 1.30 mg/dl Est Creatinine Clear Calc Drug Dose 94.4 ml/min 89.1 ml/min Estimated GFR () 80.1 72.7 Estimated GFR (Non- 69.1 62.7 BUN/Creatinine Ratio 11.7 11.2 Random Glucose 87 mg/dl 122 mg/dl Osmolality 300 mOsm/kg Calcium Level 7.2 mg/dl 7.1 mg/dl Albumin 2.4 gm/dl 2.0 gm/dl Lactic Acid Level 3.7 mmol/L 2.4 mmol/L White Blood Count 16.97 K/uL Red Blood Count 3.38 M/uL Hemoglobin 12.2 g/dL Hematocrit 32.5 % Mean Corpuscular Volume 96.2 fL Mean Corpuscular Hemoglobin 36.1 pg Mean Corpuscular Hemoglobin Concent 37.5 g/dl Platelet Count 132 K/uL Mean Platelet Volume 10.6 fL RDW Standard Deviation 56.5 fL RDW Coefficient of Variation 16.2 % Neutrophils % (Manual) 99.2 % Lymphocytes % (Manual) 0.0 % Metamyelocytes % 0.8 % Neutrophils # (Manual) 16.83 K/uL Total Absolute Neutrophils 16.83 K/uL Total Absolute Lymphocytes 0.00 K/uL Metamyelocytes # 0.14 K/uL Polychromasia 1+ Hypochromasia PRESENT Macrocytosis PRESENT Magnesium Level 1.3 mg/dl Total Bilirubin 5.2 mg/dl Aspartate Amino Transf (AST/SGOT) 211 U/L Alanine Aminotransferase (ALT/SGPT) 88 U/L Alkaline Phosphatase 646 U/L Total Protein 5.5 gm/dl Globulin 3.5 gm/dl Albumin/Globulin Ratio 0.6 Impression Patient is a 51 year old male w ETOH cirrhosis, admitted for sepsis and likely ETOH hepatitis eval and management. MELD 16. Maddrey's score <32. Plan - Head CT negative for acute process; F/U urine and blood cx - U/S guided diagnostic and therapeutic paracentesis; verbal consent to be obtained from pt's POA (Selena Rodriguez, ex ) as pt is currently undergoing DTs. - Repeat AFP; request for Hepatology referral at [facility] to eval liver lesion done, appt pending. - No indication for Prednisolone for Maddreys Score <32. - Continue DT protocol - Consider psych consult for depression eval, ETOH abuse though pt had repeatedly refused rehab in the past. - Continue Protonix 40mg BID, Lactulose 30g daily, Lasix 40mg, Spironolactone 100mg - Low Salt diet I performed a history and physical examination of the patient. I have discussed the patient's case, impression and plan with KANWAL Ortiz on . Her note reflects my findings and plan. Look for infectious source. Agree with paracentesis. Jeremie Obrien MD
[2016-11-16 16:27] LABS: PERIT FL WBC 110 /uL (0-300); PERITONEAL FLUID RBC < 3000 /uL
--- NOTE | 2016-11-16 17:51 | Progress Note ---
Internal Med Progress Note Date of Service: Nov 16, 2016. Provider Documentation: SUBJECTIVE: mostly sedated from benzo's for alcohol withdrawal opens eyes on calling moves extremities OBJECTIVE: Vital Signs-as noted below Exam: General-drowsy Neck-no neck masses Lungs-cta b/l no wheezing or crackles Heart-s1 and s2 heard tachycardia no murmurs Abdomen-soft bowel sounds present non tender no distension Extremities-no erythema Neuro-drowsy moves extremities Lab data as noted below. ASSESSMENT & PLAN: : This is a 51-year-old with chronic alcoholism, who was sent in because of abnormal laboratories and possible sepsis. 1. Possible sepsis, source could be spontaneous bacterial peritonitis with tachycardia and elevated white count.UTI? ascitic fluid analysis no elevated wbc. elevated lactic acid mostly from sepsis and an possible element of alcoholism. Repeat lactic acid trending down on iv vanco and Zosyn will f/u cx BP stable contiue fluids for now hold B mag fo now. 2. Alcoholism. He recently was in the hospital in September for alcoholic hepatitis and electrolyte abnormalities. He was placed on prednisone which was supposed to be tapered. Prednisolone; stopped by GI as Discriminant score is not that high. The patient continues to drink in spite of previous rehab and counseling. He says he is preparing for his . His ammonia level is okay. Received banana bag and placed on Librium around the clock and Ativan p.r.n. for alcohol withdrawal and closely monitor on the tele floor. Mostly sedated today close monitor. 3. Question of liver mass which has increased in size from the previous ultrasound in August, but MRI done as outpatient and there was no suggestion of hepatocellular carcinoma, but his AFP level was somewhat high. Repeat AFP levels and followup with Hepatology at [facility] as pe GI. . 4. History of thrombocytopenia .132 today. We will follow laboratories. 5. History of generalized weakness, pain and fall secondary to his alcoholism. Physical and occupational therapies when patient is more stable. 6. History of stroke, no residual deficits. We are holding aspirin for now. 7. History of depression, on Cymbalta. We will follow his liver function tests. 8. History of chronic systolic heart failure secondary to alcoholic cardiomyopathy, we will be holding the diuretics for now for sepsis. We will monitor for any volume overload. Echocardiogram done on last admission in September shows ejection fraction of 60-65% and grade 1 diastolic dysfunction. Lasix and Aldactone on hold. On fluids. will monitor. 9. History of deep vein thrombosis in the right cephalic vein in 2013, not on any anticoagulation. 10. History of supraventricular tachycardia. The patient received adenosine in the Emergency Room. Missed his Lopressor today. Holding Lopressor for sepsis. Restart when sepsis improves. 11. Hyponatremia; sodium is 123, mostly secondary to his alcoholism and it improved with normal fluids on last admission. We will follow laboratories closely to prevent overcorrection. If not improving, we will consult nephrology. Hold diuretics. f/u labs. Deep venous thrombosis prophylaxis, SCDs for now. DISPOSITION:Monitor in tele floor. Level 1. Full code, as per discussion with the patient only on the chance of recovery. Closely monitor on tele floor. Will d/w with patient when more stable about further care as non compliant with the advise and preparing for his . Code status: at admission patient wanted to be full code if there is chance of recovery only. Vital Signs: Date Time Temp Pulse Resp B/P Pulse Ox O2 Delivery O2 Flow Rate FiO2 11/16/16 16:00 Nasal Cannula 11/16/16 15:46 37.1 73 22 121/66 98 11/16/16 12:00 Nasal Cannula 11/16/16 11:25 37.2 130 16 123/80 92 Room Air 11/16/16 08:39 115/75 11/16/16 08:00 Nasal Cannula 11/16/16 07:32 37.0 125 18 110/77 94 Room Air 11/16/16 04:18 37.0 125 17 108/66 96 Nasal Cannula 2.0 11/16/16 04:00 Nasal Cannula 2.0 11/15/16 23:59 Nasal Cannula 2.0 11/15/16 23:54 36.7 112 21 95/68 98 Nasal Cannula 2.0 11/15/16 19:10 36.7 122 18 120/84 95 Nasal Cannula 2.0 11/15/16 17:43 118 16 94 Lab Results: Results Past 24 Hours Test 11/15/16 19:24 11/15/16 23:55 11/16/16 00:00 11/16/16 00:55 Range/Units Lactic Acid Level 3.5 4.4 0.4-2.0 mmol/L Urine Color ORANGE Urine Appearance CLOUDY CLEAR Urine pH 5.5 4.5-7.5 Urine Specific [place] > 1.045 1.000-1.030 Urine Protein TRACE NEG Urine Glucose (UA) NEG NEG Urine Ketones NEG NEG Urine Occult Blood NEG NEG Urine Nitrite POS NEG Urine Bilirubin 2+ NEG Urine Urobilinogen POS NEG Urine Leukocyte Esterase TRACE NEG Urine WBC (Auto) 1-5 0-5 /hpf Urine RBC (Auto) 0-4 0-4 /hpf Urine Hyaline Casts (Auto) 10-30 0-5 /lpf Urine Epithelial Cells (Auto) 10-20 0-5 /lpf Urine Bacteria (Auto) NEG NEG Urine Pathogenic Casts 0 /lpf Urine Opiates Screen NEG NEG Urine Methadone, Qualitative NEG NEG Urine Barbiturates NEG NEG Urine Phencyclidine (PCP) Level NEG NEG Ur Amphetamine/Methamphetamine NEG NEG MDMA (Ecstasy) Screen NEG NEG Urine Benzodiazepines Screen POS NEG Urine Cocaine Metabolite NEG NEG Urine Marijuana (THC) NEG NEG Peritoneal Fluid Color STRAW Peritoneal Fluid Appearance CLEAR Peritoneal Fluid WBC 110 0-300 /uL Peritoneal Fluid RBC < 3000 /uL Peritoneal Fld Mononuclear WBCs (%) 69.9 % Peritoneal Fld Polynuclear WBCs (%) 30.1 % Peritoneal Fluid Total Protein 0.7 g/dl Peritoneal Fluid Albumin < 0.6 g/dl Test 11/16/16 01:34 11/16/16 06:05 11/16/16 06:17 11/16/16 11:55 Range/Units Sodium Level 126 125 124 136-145 mmol/L Potassium Level 4.4 4.9 3.5-5.1 mmol/L Chloride Level 87 89 98-107 mmol/L Carbon Dioxide Level 28 21 21-32 mmol/L Anion Gap 11.0 15.0 3-11 mmol/L Blood Urea Nitrogen 14 15 7-18 mg/dl Creatinine 1.20 1.30 0.60-1.40 mg/dl Est Creatinine Clear Calc Drug Dose 94.4 89.1 ml/min Estimated GFR () 80.1 72.7 Estimated GFR (Non- 69.1 62.7 BUN/Creatinine Ratio 11.7 11.2 10-20 Random Glucose 87 122 70-99 mg/dl Osmolality 300 280-300 mOsm/kg Calcium Level 7.2 7.1 8.5-10.1 mg/dl Albumin 2.4 2.0 3.4-5.0 gm/dl Lactic Acid Level 3.7 2.4 0.4-2.0 mmol/L White Blood Count 16.97 4.8-10.8 K/uL Red Blood Count 3.38 4.7-6.1 M/uL Hemoglobin 12.2 14.0-18.0 g/dL Hematocrit 32.5 42-52 % Mean Corpuscular Volume 96.2 80-100 fL Mean Corpuscular Hemoglobin 36.1 25-34 pg Mean Corpuscular Hemoglobin Concent 37.5 32-36 g/dl Platelet Count 132 130-400 K/uL Mean Platelet Volume 10.6 7.4-10.4 fL RDW Standard Deviation 56.5 36.4-46.3 fL RDW Coefficient of Variation 16.2 11.5-14.5 % Neutrophils % (Manual) 99.2 % Lymphocytes % (Manual) 0.0 % Metamyelocytes % 0.8 % Neutrophils # (Manual) 16.83 1.4-6.5 K/uL Total Absolute Neutrophils 16.83 1.4-6.5 K/uL Total Absolute Lymphocytes 0.00 1.2-3.4 K/uL Metamyelocytes # 0.14 0-0 K/uL Polychromasia 1+ Hypochromasia PRESENT Macrocytosis PRESENT Magnesium Level 1.3 1.8-2.4 mg/dl Total Bilirubin 5.2 0.2-1 mg/dl Aspartate Amino Transf (AST/SGOT) 211 15-37 U/L Alanine Aminotransferase (ALT/SGPT) 88 12-78 U/L Alkaline Phosphatase 646 45-117 U/L Total Protein 5.5 6.4-8.2 gm/dl Globulin 3.5 2.5-4.0 gm/dl Albumin/Globulin Ratio 0.6 0.9-2 Test 11/16/16 17:00 Range/Units Microbiology Results 11/16/16 Blood Culture, Received Pending 11/16/16 Blood Culture, Received Pending 11/15/16 Urine Culture, Received Pending 11/16/16 Acid Fast Stain, Received Pending 11/16/16 Mycobacterial Culture, Received Pending 11/16/16 Gram Stain, Received Pending 11/16/16 Bacterial Culture, Received Pending
[2016-11-16 18:24] LABS: CALCIUM 6.7 mg/dl (8.5-10.1); CREATININE 1.1 mg/dl (0.60-1.40); POTASSIUM 4.3 mmol/L (3.5-5.1)
[2016-11-16 19:29] VITALS: BP 129/68; PULSE 86; TEMP 36.8; O2SAT 95
[2016-11-16] MEDS: PANTOprazole SOD 40 MG TAB PO SCH (20:29)
[2016-11-16] MEDS: AMITRIPTYLINE HCL 10 MG TAB PO SCH (20:29)
[2016-11-17] VITALS (7 sets, daily range): BP systolic 114–125; BP diastolic 81–86; PULSE 106–125; TEMP 36.7–38.5; O2SAT 91–97
[2016-11-17] MEDS: PIPERACILL/TAZOBAC IV 3.375 GM in DEXTROSE 5% 100ML IV SCH ×3 (02:11→18:07)
[2016-11-17] MEDS: LORAZEPAM 2 MG/ML 1 ML VIAL IV PRN ×4 (03:28→23:45)
[2016-11-17] MEDS ORDERED: VANCOMYCIN TROUGH SCH (07:30)
[2016-11-17 07:47] LABS: HEMATOCRIT 33.3 % (42-52); MEAN CELL VOLUME 99.4 fL (80-100); MEAN CORPUSCULAR HEMOGLOBIN 35.5 pg (25-34); MEAN CORPUSCULAR HGB CONC 35.7 g/dl (32-36); RED BLOOD COUNT 3.35 M/uL (4.7-6.1); WHITE BLOOD COUNT 14.64 K/uL (4.8-10.8)
[2016-11-17] MEDS: LACTULOSE SYRUP 30 GM/45 ML UDP PO SCH (07:51)
[2016-11-17] MEDS: PANTOprazole SOD 40 MG TAB PO SCH ×2 (07:52→21:09)
[2016-11-17] MEDS: DULOXETINE (CYMBALTA) 30 MG CAP PO SCH (07:54)
[2016-11-17] MEDS: CEROVITE ADV FORMULA TAB PO SCH (07:54)
[2016-11-17] MEDS: CALCIUM CARBONATE 500 MG CHEWABLE PO SCH ×2 (07:54→21:02)
[2016-11-17] MEDS: MULTIVITAMIN TAB PO SCH (07:54)
[2016-11-17] MEDS: MAGNESIUM CHLORIDE 64MG DELAYED REL TAB PO SCH ×2 (07:54→21:09)
[2016-11-17] MEDS: TAMSULOSIN HCL 0.4 MG CAP PO SCH (07:54)
[2016-11-17] MEDS: CHLORDIAZEPOXIDE 25 MG CAP PO SCH ×3 (07:59→21:09)
[2016-11-17 08:13] LABS: BASO % 0.1 %; BASO ABS # 0.01 K/uL (0-0.2); COMPLETE YES; EOS % 0.4 %; IG% 0.3 %; MEAN PLATELET VOLUME 10.7 fL (7.4-10.4); MONO % 2.2 %; PLATELET COUNT 99 K/uL (130-400); PLT ESTIMATE DECREASED
[2016-11-17 08:18] LABS: BUN/CREATININE RATIO 14.4 (10-20); CALCIUM 7.1 mg/dl (8.5-10.1); CREATININE 0.95 mg/dl (0.60-1.40); POTASSIUM 3.7 mmol/L (3.5-5.1)
[2016-11-17] MEDS ORDERED: SPIRONOLACTONE 100 MG TAB PO SCH (09:00)
[2016-11-17] MEDS ORDERED: FUROSEMIDE 40 MG TAB PO SCH (09:00)
[2016-11-17] MEDS: FoLIC ACID INJ 1 MG in SYRINGE 9.8 ML IV SCH (09:41)
[2016-11-17] MEDS: VANCOMYCIN INJ 1,700 MG in SODIUM CHLORIDE 0.9% 500ML 500 ML IV SCH (09:41)
[2016-11-17] MEDS: THIAMINE HCL INJ 100 MG in SYRINGE 9 ML IV SCH (09:42)
[2016-11-17] MEDS: D5W AND NSS 1,000 ML IV SCH (09:42)
--- NOTE | 2016-11-17 11:43 | Progress Note ---
Internal Med Progress Note Date of Service: Nov 17, 2016. Provider Documentation: SUBJECTIVE: The patient was seen and examined Remains very tired and lethargic No pain Tremor is better OBJECTIVE: Vital Signs-as noted below Exam: General-Generally weak Eyes-normal ENT-normal Neck-supple Lungs- breath sound bilaterally Heart-Regular Abdomen-Distended,soft ,mildly tender ,clinically moderate ascites Extremities-Trace edema bilaterally Neuro-AAOx3 Lab data as noted below. ASSESSMENT & PLAN: Possible sepsis, Tachycardia and elevated white count.UTI? No SBP Lactic acid trended down Continue iv Vanco and Zosyn Follow cultures Alcoholic Hepatitis Was admitted in September Now with increased LFTs and Ammonia and confusion Was on Prednisone before Appreciate GI input LFTs are improving Will need follow up in [place] Continue Protonix 40mg BID, Lactulose 30g daily, Lasix 40mg, Spironolactone 100mg Alcoholism. Last drink ~ 2 days ago 11/15/16 Continue DT prophylaxis A little Drowsy from Ativan Hepatic Mass Question of liver mass which has increased in size from the previous ultrasound in August, but MRI done as outpatient and there was no suggestion of hepatocellular carcinoma, AFP level was somewhat high. Repeat AFP levels and followup with Hepatology at [place] as pe GI. History of stroke, no residual deficits. We are holding aspirin for now. History of depression, on Cymbalta. We will follow his liver function tests. History of chronic systolic heart failure secondary to alcoholic cardiomyopathy , Echocardiogram in September shows ejection fraction of 60-65% and grade 1 diastolic dysfunction. Lasix and Aldactone on hold. On fluids. Will restart Lasix and Aldactone History of deep vein thrombosis in the right cephalic vein in 2013, not on any anticoagulation. History of supraventricular tachycardia. The patient received adenosine in the Emergency Room. Missed his Lopressor today. Holding Lopressor for sepsis. Restart when sepsis improves. Deep venous thrombosis prophylaxis, SCDs for now. DISPOSITION:Monitor in tele floor. CODE : Level 1. Vital Signs: Date Time Temp Pulse Resp B/P Pulse Ox O2 Delivery O2 Flow Rate FiO2 11/17/16 08:00 Room Air 11/17/16 07:19 36.7 110 16 125/86 91 Room Air 11/17/16 04:00 Room Air 11/17/16 03:54 36.8 106 18 114/81 96 Nasal Cannula 2.0 11/17/16 00:00 Room Air 1/21/17 00:00 37.0 107 20 115/85 94 Nasal Cannula 2.0 11/16/16 20:00 Room Air 11/16/16 19:29 36.8 86 24 129/68 95 Nasal Cannula 2.0 11/16/16 16:00 Nasal Cannula 11/16/16 15:46 37.1 73 22 121/66 98 11/16/16 12:00 Nasal Cannula Lab Results: Results Past 24 Hours Test 11/16/16 11:55 11/16/16 17:57 11/17/16 07:30 Range/Units Sodium Level 124 127 131 136-145 mmol/L Lactic Acid Level 2.4 2.1 0.4-2.0 mmol/L Potassium Level 4.3 3.7 3.5-5.1 mmol/L Chloride Level 95 97 98-107 mmol/L Carbon Dioxide Level 20 23 21-32 mmol/L Anion Gap 12.0 11.0 3-11 mmol/L Blood Urea Nitrogen 13 14 7-18 mg/dl Creatinine 1.10 0.95 0.60-1.40 mg/dl Est Creatinine Clear Calc Drug Dose 105.3 120.8 ml/min Estimated GFR () 89.0 106.2 Estimated GFR (Non- 76.8 91.7 BUN/Creatinine Ratio 12.0 14.4 10-20 Random Glucose 180 138 70-99 mg/dl Calcium Level 6.7 7.1 8.5-10.1 mg/dl White Blood Count 14.64 4.8-10.8 K/uL Red Blood Count 3.35 4.7-6.1 M/uL Hemoglobin 11.9 14.0-18.0 g/dL Hematocrit 33.3 42-52 % Mean Corpuscular Volume 99.4 80-100 fL Mean Corpuscular Hemoglobin 35.5 25-34 pg Mean Corpuscular Hemoglobin Concent 35.7 32-36 g/dl Platelet Count 99 130-400 K/uL Mean Platelet Volume 10.7 7.4-10.4 fL Neutrophils (%) (Auto) 95.0 % Lymphocytes (%) (Auto) 2.0 % Monocytes (%) (Auto) 2.2 % Eosinophils (%) (Auto) 0.4 % Basophils (%) (Auto) 0.1 % Neutrophils # (Auto) 13.90 1.4-6.5 K/uL Lymphocytes # (Auto) 0.30 1.2-3.4 K/uL Monocytes # (Auto) 0.32 0.11-0.59 K/uL Eosinophils # (Auto) 0.06 0-0.5 K/uL Basophils # (Auto) 0.01 0-0.2 K/uL RDW Standard Deviation 60.2 36.4-46.3 fL RDW Coefficient of Variation 16.8 11.5-14.5 % Immature Granulocyte % (Auto) 0.3 % Immature Granulocyte # (Auto) 0.05 0.00-0.02 K/uL Platelet Estimate DECREASED Magnesium Level 2.0 1.8-2.4 mg/dl Total Bilirubin 4.3 0.2-1 mg/dl Direct Bilirubin 3.6 0-0.2 mg/dl Aspartate Amino Transf (AST/SGOT) 168 15-37 U/L Alanine Aminotransferase (ALT/SGPT) 83 12-78 U/L Alkaline Phosphatase 566 45-117 U/L Total Protein 5.2 6.4-8.2 gm/dl Albumin 1.8 3.4-5.0 gm/dl Vancomycin Level Trough 23.5 SEE COMMENT mcg/ml
[2016-11-17] MEDS ORDERED: NURSING VERBAL MED ORDER ONE (14:15)
[2016-11-17] MEDS: METOPROLOL TARTRATE 1 MG/ML VIAL IV PRN ×2 (15:00→21:09)
--- NOTE | 2016-11-17 15:20 | Progress Note ---
Progress Note Events noted. Last 24 Hours Test 11/16/16 17:57 11/17/16 07:30 Sodium Level 127 mmol/L 131 mmol/L Potassium Level 4.3 mmol/L 3.7 mmol/L Chloride Level 95 mmol/L 97 mmol/L Carbon Dioxide Level 20 mmol/L 23 mmol/L Anion Gap 12.0 mmol/L 11.0 mmol/L Blood Urea Nitrogen 13 mg/dl 14 mg/dl Creatinine 1.10 mg/dl 0.95 mg/dl Est Creatinine Clear Calc Drug Dose 105.3 ml/min 120.8 ml/min Estimated GFR () 89.0 106.2 Estimated GFR (Non- 76.8 91.7 BUN/Creatinine Ratio 12.0 14.4 Random Glucose 180 mg/dl 138 mg/dl Lactic Acid Level 2.1 mmol/L Calcium Level 6.7 mg/dl 7.1 mg/dl White Blood Count 14.64 K/uL Red Blood Count 3.35 M/uL Hemoglobin 11.9 g/dL Hematocrit 33.3 % Mean Corpuscular Volume 99.4 fL Mean Corpuscular Hemoglobin 35.5 pg Mean Corpuscular Hemoglobin Concent 35.7 g/dl Platelet Count 99 K/uL Mean Platelet Volume 10.7 fL Neutrophils (%) (Auto) 95.0 % Lymphocytes (%) (Auto) 2.0 % Monocytes (%) (Auto) 2.2 % Eosinophils (%) (Auto) 0.4 % Basophils (%) (Auto) 0.1 % Neutrophils # (Auto) 13.90 K/uL Lymphocytes # (Auto) 0.30 K/uL Monocytes # (Auto) 0.32 K/uL Eosinophils # (Auto) 0.06 K/uL Basophils # (Auto) 0.01 K/uL RDW Standard Deviation 60.2 fL RDW Coefficient of Variation 16.8 % Immature Granulocyte % (Auto) 0.3 % Immature Granulocyte # (Auto) 0.05 K/uL Platelet Estimate DECREASED Magnesium Level 2.0 mg/dl Total Bilirubin 4.3 mg/dl Direct Bilirubin 3.6 mg/dl Aspartate Amino Transf (AST/SGOT) 168 U/L Alanine Aminotransferase (ALT/SGPT) 83 U/L Alkaline Phosphatase 566 U/L Total Protein 5.2 gm/dl Albumin 1.8 gm/dl Vancomycin Level Trough 23.5 mcg/ml Date Time Temp Pulse Resp B/P Pulse Ox O2 Delivery O2 Flow Rate FiO2 11/17/16 15:00 132 121/85 11/17/16 12:00 Room Air 11/17/16 10:45 37.0 109 20 121/85 95 Room Air 11/17/16 08:00 Room Air 11/17/16 07:19 36.7 110 16 125/86 91 Room Air 11/17/16 04:00 Room Air 11/17/16 03:54 36.8 106 18 114/81 96 Nasal Cannula 2.0 11/17/16 00:00 Room Air 11/17/16 00:00 37.0 107 20 115/85 94 Nasal Cannula 2.0 11/16/16 20:00 Room Air 11/16/16 19:29 36.8 86 24 129/68 95 Nasal Cannula 2.0 11/16/16 16:00 Nasal Cannula 11/16/16 15:46 37.1 73 22 121/66 98 A/P: Alc hep Markedly elevated alk phos DT's - Regarding alc hep: Cont supportive care - diuretics as below, HE therapy. His Na is improved, and creat remains stable. Please check creat daily and LFT' s, INR every other day. - Regarding alk phos: Unclear etiology, possibly related to portal cholangiopathy from alc hep. Would consider eventual doppler uls, MRCP once DT' s has resolved. Follow for now. - Regarding ascites: Paracentesis w/o evidence of SBP. Cont diuretics which were started by hospitalist.
[2016-11-17] MEDS: AMITRIPTYLINE HCL 10 MG TAB PO SCH (21:08)
[2016-11-17] MEDS ORDERED: VANCOMYCIN INJ 1,500 MG in SODIUM CHLORIDE 0.9% 500ML 500 ML IV SCH (22:00)
[2016-11-17] MEDS ORDERED: ACETAMINOPHEN 325 MG TAB PO ONE (23:22)
[2016-11-17] MEDS ORDERED: METOPROLOL SUCC 50MG EXT REL TAB PO ONE (23:24)
[2016-11-18] VITALS (7 sets, daily range): BP systolic 91–120; BP diastolic 60–83; PULSE 97–105; TEMP 36.6–37.3; O2SAT 92–97
[2016-11-18] MEDS: PIPERACILL/TAZOBAC IV 3.375 GM in DEXTROSE 5% 100ML IV SCH ×3 (02:13→18:28)
[2016-11-18] MEDS: CEROVITE ADV FORMULA TAB PO SCH (07:16)
[2016-11-18] MEDS: CALCIUM CARBONATE 500 MG CHEWABLE PO SCH ×2 (07:16→20:03)
[2016-11-18] MEDS: PANTOprazole SOD 40 MG TAB PO SCH ×2 (07:16→20:03)
[2016-11-18] MEDS: FUROSEMIDE 40 MG TAB PO SCH (07:16)
[2016-11-18] MEDS: DULOXETINE (CYMBALTA) 30 MG CAP PO SCH (07:16)
[2016-11-18] MEDS: SPIRONOLACTONE 100 MG TAB PO SCH (07:16)
[2016-11-18] MEDS: MAGNESIUM CHLORIDE 64MG DELAYED REL TAB PO SCH ×2 (07:16→20:03)
[2016-11-18] MEDS: THIAMINE HCL 100 MG TAB PO SCH (07:16)
[2016-11-18] MEDS: TAMSULOSIN HCL 0.4 MG CAP PO SCH (07:17)
[2016-11-18] MEDS: MULTIVITAMIN TAB PO SCH (07:17)
[2016-11-18] MEDS: METOPROLOL SUCC 50MG EXT REL TAB PO SCH (07:17)
[2016-11-18 07:19] LABS: HEMATOCRIT 33.3 % (42-52); MEAN CELL VOLUME 100.9 fL (80-100); MEAN CORPUSCULAR HEMOGLOBIN 36.7 pg (25-34); MEAN CORPUSCULAR HGB CONC 36.3 g/dl (32-36); WHITE BLOOD COUNT 9.88 K/uL (4.8-10.8)
[2016-11-18 07:21] LABS: BASO % 0.1 %; BASO ABS # 0.01 K/uL (0-0.2); COMPLETE YES; EOS % 2.5 %; IG% 0.6 %; MEAN PLATELET VOLUME 11.3 fL (7.4-10.4); NEUT % 90.8 %; PLATELET COUNT 73 K/uL (130-400)
[2016-11-18] MEDS: CHLORDIAZEPOXIDE 25 MG CAP PO SCH ×3 (07:21→20:03)
[2016-11-18] MEDS: LACTULOSE SYRUP 30 GM/45 ML UDP PO SCH (07:22)
[2016-11-18 08:03] LABS: CREATININE 1.3 mg/dl (0.60-1.40)
[2016-11-18 08:04] LABS: BUN/CREATININE RATIO 11.2 (10-20); CALCIUM 7.1 mg/dl (8.5-10.1); MAGNESIUM 1.8 mg/dl (1.8-2.4); POTASSIUM 3.7 mmol/L (3.5-5.1)
--- NOTE | 2016-11-18 14:02 | Progress Note ---
Internal Med Progress Note Date of Service: Nov 18, 2016. Provider Documentation: SUBJECTIVE: The patient was seen and examined Remains very tired and lethargic Remains confused and lethargic Tremors are better OBJECTIVE: Vital Signs-as noted below Exam: General-Generally weak Pleasantly confused Eyes-normal ENT-normal Neck-supple Lungs- breath sound bilaterally Heart-Regular Abdomen-Distended,soft ,mildly tender ,clinically moderate ascites Extremities-Trace edema bilaterally Neuro-AAOx3 Lab data as noted below. ASSESSMENT & PLAN: Possible sepsis, Tachycardia and elevated white count.UTI? No SBP-s/p paracentesis Lactic acid trended down Continue iv Vanco and Zosyn Follow cultures-negative so far D/C Vancomycin-creatinine is going up and negative culture Continue Zosyn Alcoholic Hepatitis Was admitted in September Now with increased LFTs and Ammonia and confusion Was on Prednisone before Appreciate GI input LFTs are improving Will need follow up in [place] Continue Protonix 40mg BID, Lactulose 30g daily, Lasix 40mg, Spironolactone 100mg Recheck Ammonia leval Alcoholism. Last drink ~ 2 days ago 11/15/16 Continue DT prophylaxis A little Drowsy from Ativan Received 2 doses of Ativan last night as I was told Hepatic Mass Question of liver mass which has increased in size from the previous ultrasound in August, but MRI done as outpatient and there was no suggestion of hepatocellular carcinoma, AFP level was somewhat high. Repeat AFP levels and followup with Hepatology at [place] as pe GI. History of stroke, no residual deficits. We are holding aspirin for now. History of depression, on Cymbalta. We will follow his liver function tests. History of chronic systolic heart failure secondary to alcoholic cardiomyopathy , Echocardiogram in September shows ejection fraction of 60-65% and grade 1 diastolic dysfunction. Lasix and Aldactone on hold. On fluids. Will restart Lasix and Aldactone History of deep vein thrombosis in the right cephalic vein in 2013, not on any anticoagulation. History of supraventricular tachycardia. The patient received adenosine in the Emergency Room. Missed his Lopressor today. Holding Lopressor for sepsis. Restart when sepsis improves. Deep venous thrombosis prophylaxis, SCDs for now. DISPOSITION:Monitor in tele floor. CODE : Level 1. No family members at bedside to discuss Will try to call from record Vital Signs: Date Time Temp Pulse Resp B/P Pulse Ox O2 Delivery O2 Flow Rate FiO2 11/18/16 12:00 Room Air 11/18/16 12:00 37.3 103 16 103/70 93 11/18/16 08:00 Room Air 11/18/16 07:46 37.3 102 16 120/83 97 11/18/16 04:00 36.8 105 22 97/63 93 Room Air 11/18/16 04:00 Room Air 11/18/16 00:00 Room Air 11/17/16 23:44 37.2 123 20 124/85 92 Room Air 11/17/16 21:09 127 121/83 11/17/16 20:00 Room Air 11/17/16 19:26 38.5 125 22 121/83 96 Room Air 11/17/16 16:00 Room Air 11/17/16 15:24 36.7 116 18 122/86 97 Room Air 11/17/16 15:00 132 121/85 Lab Results: Results Past 24 Hours Test 11/18/16 07:04 Range/Units White Blood Count 9.88 4.8-10.8 K/uL Red Blood Count 3.30 4.7-6.1 M/uL Hemoglobin 12.1 14.0-18.0 g/dL Hematocrit 33.3 42-52 % Mean Corpuscular Volume 100.9 80-100 fL Mean Corpuscular Hemoglobin 36.7 25-34 pg Mean Corpuscular Hemoglobin Concent 36.3 32-36 g/dl Platelet Count 73 130-400 K/uL Mean Platelet Volume 11.3 7.4-10.4 fL Neutrophils (%) (Auto) 90.8 % Lymphocytes (%) (Auto) 4.0 % Monocytes (%) (Auto) 2.0 % Eosinophils (%) (Auto) 2.5 % Basophils (%) (Auto) 0.1 % Neutrophils # (Auto) 8.96 1.4-6.5 K/uL Lymphocytes # (Auto) 0.40 1.2-3.4 K/uL Monocytes # (Auto) 0.20 0.11-0.59 K/uL Eosinophils # (Auto) 0.25 0-0.5 K/uL Basophils # (Auto) 0.01 0-0.2 K/uL RDW Standard Deviation 62.3 36.4-46.3 fL RDW Coefficient of Variation 16.8 11.5-14.5 % Immature Granulocyte % (Auto) 0.6 % Immature Granulocyte # (Auto) 0.06 0.00-0.02 K/uL Sodium Level 130 136-145 mmol/L Potassium Level 3.7 3.5-5.1 mmol/L Chloride Level 96 98-107 mmol/L Carbon Dioxide Level 23 21-32 mmol/L Anion Gap 11.0 3-11 mmol/L Blood Urea Nitrogen 15 7-18 mg/dl Creatinine 1.30 0.60-1.40 mg/dl Est Creatinine Clear Calc Drug Dose 89.4 ml/min Estimated GFR () 72.7 Estimated GFR (Non- 62.7 BUN/Creatinine Ratio 11.2 10-20 Random Glucose 84 70-99 mg/dl Calcium Level 7.1 8.5-10.1 mg/dl Magnesium Level 1.8 1.8-2.4 mg/dl Total Bilirubin 4.1 0.2-1 mg/dl Direct Bilirubin 3.1 0-0.2 mg/dl Aspartate Amino Transf (AST/SGOT) 194 15-37 U/L Alanine Aminotransferase (ALT/SGPT) 86 12-78 U/L Alkaline Phosphatase 571 45-117 U/L Total Protein 5.1 6.4-8.2 gm/dl Albumin 1.8 3.4-5.0 gm/dl
--- NOTE | 2016-11-18 14:04 | Progress Note ---
Progress Note No events overnight, no new complaints Vital Signs Past 12 Hours Date Time Temp Pulse Resp B/P Pulse Ox O2 Delivery O2 Flow Rate FiO2 11/18/16 12:00 Room Air 11/18/16 12:00 37.3 103 16 103/70 93 11/18/16 08:00 Room Air 11/18/16 07:46 37.3 102 16 120/83 97 11/18/16 04:00 36.8 105 22 97/63 93 Room Air 11/18/16 04:00 Room Air Pt is alert and oriented. He is anxious appearing, and mildly tremulous Abd exam shows distention, dullness throughout Last 24 Hours Test 11/18/16 07:04 White Blood Count 9.88 K/uL Red Blood Count 3.30 M/uL Hemoglobin 12.1 g/dL Hematocrit 33.3 % Mean Corpuscular Volume 100.9 fL Mean Corpuscular Hemoglobin 36.7 pg Mean Corpuscular Hemoglobin Concent 36.3 g/dl Platelet Count 73 K/uL Mean Platelet Volume 11.3 fL Neutrophils (%) (Auto) 90.8 % Lymphocytes (%) (Auto) 4.0 % Monocytes (%) (Auto) 2.0 % Eosinophils (%) (Auto) 2.5 % Basophils (%) (Auto) 0.1 % Neutrophils # (Auto) 8.96 K/uL Lymphocytes # (Auto) 0.40 K/uL Monocytes # (Auto) 0.20 K/uL Eosinophils # (Auto) 0.25 K/uL Basophils # (Auto) 0.01 K/uL RDW Standard Deviation 62.3 fL RDW Coefficient of Variation 16.8 % Immature Granulocyte % (Auto) 0.6 % Immature Granulocyte # (Auto) 0.06 K/uL Sodium Level 130 mmol/L Potassium Level 3.7 mmol/L Chloride Level 96 mmol/L Carbon Dioxide Level 23 mmol/L Anion Gap 11.0 mmol/L Blood Urea Nitrogen 15 mg/dl Creatinine 1.30 mg/dl Est Creatinine Clear Calc Drug Dose 89.4 ml/min Estimated GFR () 72.7 Estimated GFR (Non- 62.7 BUN/Creatinine Ratio 11.2 Random Glucose 84 mg/dl Calcium Level 7.1 mg/dl Magnesium Level 1.8 mg/dl Total Bilirubin 4.1 mg/dl Direct Bilirubin 3.1 mg/dl Aspartate Amino Transf (AST/SGOT) 194 U/L Alanine Aminotransferase (ALT/SGPT) 86 U/L Alkaline Phosphatase 571 U/L Total Protein 5.1 gm/dl Albumin 1.8 gm/dl A/P: - Regarding alc hep: Cont HE therapy. Follow creat - it is mildly increased today; will check urine na and plan to give albumin if creat cont to rise or if urine Na is low. HPlease check creat daily and LFT's, INR every other day. - Regarding ascites: Cont diuretics at current dose; defer increasing dose due to creat rise. Would consider LVP tomorrow. - Regarding alk phos: Unclear etiology, possibly related to portal cholangiopathy from alc hep. Will check lipase. Would consider doppler uls tomorrow and MRCP once he is more stable. Follow for now.
[2016-11-18] MEDS: AMITRIPTYLINE HCL 10 MG TAB PO SCH (20:03)
[2016-11-19] VITALS (8 sets, daily range): BP systolic 85–105; BP diastolic 60–66; PULSE 91–105; TEMP 36.4–37.1; O2SAT 91–95
[2016-11-19 01:05] LABS: HYDROXYETHYLFLURAZEPAM CONF NEGATIVE NG/ML (CUTOFF=50); HYDROXYMIDAZOLAM NEGATIVE NG/ML (CUTOFF=50); HYDROXYTRIAZOLAM CONF NEGATIVE NG/ML (CUTOFF=50); TEMAZEPAM CONF NEGATIVE NG/ML (CUTOFF=50)
[2016-11-19] MEDS ORDERED: VANCOMYCIN TROUGH ONE (01:30)
[2016-11-19] MEDS: PIPERACILL/TAZOBAC IV 3.375 GM in DEXTROSE 5% 100ML IV SCH ×3 (01:41→18:24)
[2016-11-19 06:16] LABS: HEMATOCRIT 34.1 % (42-52); MEAN CELL VOLUME 98.6 fL (80-100); MEAN CORPUSCULAR HEMOGLOBIN 35.3 pg (25-34); MEAN CORPUSCULAR HGB CONC 35.8 g/dl (32-36); RED BLOOD COUNT 3.46 M/uL (4.7-6.1); WHITE BLOOD COUNT 12.09 K/uL (4.8-10.8)
[2016-11-19 06:22] LABS: MEAN PLATELET VOLUME 11.2 fL (7.4-10.4); PLATELET COUNT 84 K/uL (130-400)
[2016-11-19 06:30] LABS: INR 1.6 (0.9-1.1); PARTIAL THROMBOPLASTIN RATIO 1.5; PROTHROMBIN TIME (PATIENT) 16.9 SECONDS (9.0-12.0)
[2016-11-19 06:58] LABS: BUN/CREATININE RATIO 11.4 (10-20); CALCIUM 7.3 mg/dl (8.5-10.1); MAGNESIUM 1.7 mg/dl (1.8-2.4); PHOSPHORUS 1.9 mg/dl (2.5-4.9); POTASSIUM 3.9 mmol/L (3.5-5.1)
[2016-11-19 07:13] LABS: CREATININE 2.1 mg/dl (0.60-1.40)
[2016-11-19] MEDS: CHLORDIAZEPOXIDE 25 MG CAP PO SCH ×4 (08:53→20:19)
[2016-11-19] MEDS: PANTOprazole SOD 40 MG TAB PO SCH ×2 (08:54→21:22)
[2016-11-19] MEDS: LACTULOSE SYRUP 30 GM/45 ML UDP PO SCH (08:54)
[2016-11-19] MEDS: TAMSULOSIN HCL 0.4 MG CAP PO SCH (08:55)
[2016-11-19] MEDS: FUROSEMIDE 40 MG TAB PO SCH (08:55)
[2016-11-19] MEDS: DULOXETINE (CYMBALTA) 30 MG CAP PO SCH (08:55)
[2016-11-19] MEDS: SPIRONOLACTONE 100 MG TAB PO SCH (08:55)
[2016-11-19] MEDS: THIAMINE HCL 100 MG TAB PO SCH (08:56)
[2016-11-19] MEDS: MULTIVITAMIN TAB PO SCH (08:56)
[2016-11-19] MEDS: MAGNESIUM CHLORIDE 64MG DELAYED REL TAB PO SCH ×2 (08:56→21:20)
[2016-11-19] MEDS: METOPROLOL SUCC 50MG EXT REL TAB PO SCH (08:56)
[2016-11-19] MEDS: CEROVITE ADV FORMULA TAB PO SCH (08:57)
[2016-11-19] MEDS: CALCIUM CARBONATE 500 MG CHEWABLE PO SCH ×2 (08:57→21:21)
--- NOTE | 2016-11-19 12:40 | Gastroenterology Progress Note ---
Progress Note Date of Service: Nov 19, 2016 Subjective Pt evaluation today including: conversation w/ patient, physical exam, chart review, lab review, review of studies, review of inpatient medication list Pt still confused, only oriented to name. Answers mostly "yes/no". Denies any abd pain. Unable to obtain ROS otherwise. Review of Systems Constitutional: + see HPI Abdomen: + see HPI Medications Current Inpatient Medications Medications (Trade) Dose Ordered Sig/Gualberto Route Start Time Stop Time Status Last Admin Dose Admin Ioversol (Optiray 320) 100 ml UD PRN IV 11/15/16 14:00 11/19/16 13:59 Al Hydrox/Mg Hydrox/Simethicone (Maalox Max Susp) 15 ml Q4H PRN PO 11/15/16 18:00 12/15/16 17:59 Ondansetron HCl (Zofran Inj) 4 mg Q6H PRN IV 11/15/16 18:00 12/15/16 17:59 11/16/16 06:10 4 MG Nitroglycerin (Nitrostat Tab) 0.4 mg UD PRN SL 11/15/16 18:00 12/15/16 17:59 Calcium Carbonate (Tums Chew Tab) 1,500 mg BID PO 11/15/16 21:00 12/15/16 20:59 11/19/16 08:57 1,500 MG Duloxetine HCl (Cymbalta Cap) 30 mg DAILY PO 11/16/16 09:00 12/16/16 08:59 11/19/16 08:55 30 MG Albuterol/ Ipratropium (Combivent Respimat Inh) 1 puffs QID PRN INH 11/15/16 18:00 12/15/16 17:59 Magnesium Chloride (Slow-Mag Tab) 64 mg BID PO 11/15/16 21:00 12/15/16 20:59 11/19/16 08:56 64 MG Multivitamins (Multivitamin Tab) 1 tab DAILY PO 11/16/16 09:00 12/16/16 08:59 11/19/16 08:56 1 TAB Amitriptyline HCl (Elavil Tab) 10 mg HS PO 11/15/16 21:00 12/15/16 20:59 11/18/16 20:03 10 MG Tamsulosin HCl (Flomax Cap) 0.4 mg DAILY PO 11/16/16 09:00 12/16/16 08:59 11/19/16 08:55 0.4 MG Chlordiazepoxide (Librium Cap) 50 mg TID PO 11/15/16 21:00 11/29/16 20:59 11/19/16 08:53 50 MG Multivitamins/ Minerals (Multivitamin W/ Minerals Tab) 1 tab QAM PO 11/16/16 09:00 12/16/16 08:59 11/19/16 08:57 1 TAB Lactulose (Chronulac Syrup) 30 gm DAILY PO 11/16/16 09:00 12/16/16 08:59 11/19/16 08:54 30 GM Piperacillin Sod/ Tazobactam Sod 1 ea 1 ea UD PRN N/A 11/15/16 19:45 12/15/16 19:44 Piperacillin Sod/ Tazobactam Sod/ Dextrose (Zosyn Iv/D5 100ml) 115 ml @ 28.75 mls/ hr Q8H IV 11/16/16 02:00 11/26/16 01:59 11/19/16 01:41 28.75 MLS/HR Metoprolol Tartrate (Lopressor Iv) 2.5 mg Q6H PRN IV 11/15/16 20:00 12/15/16 19:59 Future hold 11/17/16 21:09 2.5 MG Lorazepam (Ativan Inj) 2 mg Q1HWA PRN IV 11/16/16 10:00 12/16/16 09:59 11/17/16 23:45 2 MG Pantoprazole Sodium (Protonix Tab) 40 mg BID PO 11/16/16 21:00 12/16/16 20:59 11/19/16 08:54 40 MG Metoprolol Succinate (Toprol Xl Tab) 50 mg QAM PO 11/18/16 09:00 12/16/16 08:59 11/18/16 07:17 50 MG Folic Acid (Folvite Tab) 1 mg DAILY PO 11/18/16 09:00 12/18/16 08:59 11/19/16 08:55 1 MG Thiamine HCl (Vitamin B-1 Tab) 100 mg QAM PO 11/18/16 09:00 12/18/16 08:59 11/19/16 08:56 100 MG Acetaminophen (Tylenol Tab) 325 mg Q6H PRN PO 11/17/16 23:30 12/17/16 23:29 Albumin Human (Albumin 25%) 25 gm Q6 IV 11/19/16 12:00 11/22/16 11:59 Objective Vital Signs Date Time Temp Pulse Resp B/P Pulse Ox O2 Delivery O2 Flow Rate FiO2 11/19/16 12:17 36.6 95 18 85/62 95 Room Air 11/19/16 07:41 36.4 91 18 95/66 93 Room Air 11/19/16 04:10 37.1 105 18 90/61 91 11/19/16 04:00 92 Room Air 11/18/16 23:59 92 Room Air 11/18/16 23:43 37.1 101 22 91/60 92 11/18/16 20:00 Room Air 11/18/16 19:23 37.1 101 18 97/64 96 Room Air 11/18/16 16:00 Room Air 11/18/16 15:16 36.6 97 20 101/68 94 Room Air Physical Exam General Appearance: + mild distress, + obese Respiratory/Chest: no respiratory distress, no accessory muscle use, + decreased breath sounds Cardiovascular: regular rate, rhythm, no gallop, no murmur Abdomen: + abnormal bowel sounds (hypoactive), + distended Extremities: + swelling Neurologic/Psych: + disoriented Skin: + jaundice Laboratory Results Last 24 Hours Test 11/19/16 05:54 11/19/16 05:55 11/19/16 06:39 Sodium Level 129 mmol/L Potassium Level 3.9 mmol/L Chloride Level 95 mmol/L Carbon Dioxide Level 25 mmol/L Anion Gap 9.0 mmol/L Blood Urea Nitrogen 24 mg/dl Creatinine 2.10 mg/dl Est Creatinine Clear Calc Drug Dose 55.4 ml/min Estimated GFR () 40.7 Estimated GFR (Non- 35.1 BUN/Creatinine Ratio 11.4 Random Glucose 97 mg/dl Calcium Level 7.3 mg/dl Phosphorus Level 1.9 mg/dl Magnesium Level 1.7 mg/dl Total Bilirubin 4.9 mg/dl Direct Bilirubin 4.0 mg/dl Aspartate Amino Transf (AST/SGOT) 200 U/L Alanine Aminotransferase (ALT/SGPT) 97 U/L Alkaline Phosphatase 515 U/L Total Protein 4.9 gm/dl Albumin 1.7 gm/dl Lipase 132 U/L White Blood Count 12.09 K/uL Red Blood Count 3.46 M/uL Hemoglobin 12.2 g/dL Hematocrit 34.1 % Mean Corpuscular Volume 98.6 fL Mean Corpuscular Hemoglobin 35.3 pg Mean Corpuscular Hemoglobin Concent 35.8 g/dl RDW Standard Deviation 59.2 fL RDW Coefficient of Variation 16.6 % Platelet Count 84 K/uL Mean Platelet Volume 11.2 fL Prothrombin Time 16.9 SECONDS Prothromb Time International Ratio 1.6 Activated Partial Thromboplast Time 39.2 SECONDS Partial Thromboplastin Ratio 1.5 Ammonia < 10.0 umol/L Bedside Glucose 96 mg/dl Assessment and Plan Patient is a 51 year old male w ETOH cirrhosis, admitted for sepsis and likely ETOH hepatitis eval and management. MELD 16. Maddrey's score <32. He had DTs and currently still confused. His Cr lavinia to 2.1 today. LFTs stable. Blood, Urine cultures, Ascitic fluid cx negative. No signs of SBP. CXR and Head CT unremarkable. Plans - Daily CMP, every other day INR - U/S guided paracentesis; verbal consent to be obtained from pt's POA (Selena Rodriguez, ex ) as pt is confused - U/S doppler to r/o PVT; eventually may need to repeat MRCP given alk phos elevation. - Start Albumin 25% 25g q6 hours; Consult Nephrology; F/U Urine sodium; Hold diuretics - Hold Lactulose; start Rifaximin 550mg BID. - Repeat AFP; request for Hepatology referral at [facility] [place] to eval liver lesion done, appt pending. - No indication for Prednisolone for Maddreys Score <32. - Continue DT protocol - Consider psych consult for depression eval, ETOH abuse though pt had repeatedly refused rehab in the past. - Low Salt diet I saw and evaluate the patient this afternoon. He appears confused this afternoon, likely related to alcohol withdrawl. Due to his ongoing alcohol abuse the patient appears to be more ill than during prior admissions. As noted before he is not an OLT candidate due to ongoing alcohol abuse. I would suggest a volume challenge with albumin today and a nephrology consultation as his creatinine seems to be risiing. Dr. Tay Germain
--- NOTE | 2016-11-19 14:25 | DIAGNOSTIC IMAGING REPORT ---
PARACENTESIS UNDER ULTRASOUND GUIDANCE CLINICAL HISTORY: ascites COMPARISON STUDY: No previous studies for comparison. FINDINGS: The risks, benefits, and alternatives to the procedure were discussed with the patient. Written informed consent was obtained. Following real-time ultrasound localization, the skin was prepped and draped. Following local anesthesia with Xylocaine, the sheath paracentesis needle was inserted and approximately 3 liters of straw-colored fluid was removed by vacuum suction. A right lower quadrant approach was utilized. The patient tolerated the procedure well and left the department in satisfactory condition. IMPRESSION: Successful ultrasound-guided paracentesis with removal of approximately 3 liters of ascitic fluid. Electronically signed by: Chevy Parmar M.D. 11/19/2016 2:23 PM Dictated Date/Time: 11/19/2016 2:23 PM
--- NOTE | 2016-11-19 15:02 | DIAGNOSTIC IMAGING REPORT ---
DOPPLER ULTRASOUND OF THE MAJOR HEPATIC VESSELS CLINICAL HISTORY: Cirrhosis. Evaluate for portal venous thrombosis. COMPARISON STUDY: CT of the chest abdomen pelvis November 15, [address] of the abdomen and pelvis October 03, 2016 FINDINGS: This study is compromised by suboptimal penetration. The liver is cirrhotic. The main, left and right portal veins appear patent with appropriately directed flow. The middle, left and right hepatic veins are patent. IMPRESSION: Technically difficult exam but hepatic vessels appear patent with appropriately directed flow. Electronically signed by: Dharmesh Hdez M.D. 11/19/2016 3:00 PM Dictated Date/Time: 11/19/2016 2:58 PM
[2016-11-19] MEDS: ALBUMIN HUMAN 25% 12.5 GM/50 ML VIAL IV SCH ×2 (15:32→18:23)
--- NOTE | 2016-11-19 18:21 | Progress Note ---
Internal Med Progress Note Date of Service: Nov 19, 2016. Provider Documentation: SUBJECTIVE: The patient was seen and examined Remains confused and lethargic Tremors are better Condition is worse today OBJECTIVE: Vital Signs-as noted below Exam: General-Generally weak Pleasantly confused Eyes-normal ENT-normal Neck-supple Lungs- breath sound bilaterally No crackles Heart-Regular Abdomen-Distended,soft ,mildly tender ,clinically moderate ascites Bowel sound sluggish Extremities-Trace edema bilaterally Neuro-AAOx3 Lab data as noted below. ASSESSMENT & PLAN: Possible sepsis, Tachycardia and elevated white count.UTI? No SBP-s/p paracentesis Lactic acid trended down Was on iv Vanco and Zosyn Follow cultures-negative so far D/C Vancomycin on 11/17-creatinine is going up and negative culture Continue Zosyn for now Acute Renal Failure Likely contributing factors-Intravascular dehydration,Use of Vancomycin ,Recent use of Contrast or Hepato-renal syndrome Appreciate Nephrology input Getting IV Albumin May need IVF Alcoholic Hepatitis Was admitted in September Now with increased LFTs and Ammonia and confusion Was on Prednisone before Appreciate GI input LFTs are improving Will need follow up in [place] Continue Protonix 40mg BID, Lactulose 30g daily, Lasix 40mg, Spironolactone 100mg Recheck Ammonia level-improved Alcoholism. Last drink ~ 2 days ago 11/15/16 Continue DT prophylaxis A little Drowsy from Ativan Received 2 doses of Ativan last night as I was told Hold Librium Minimal use of Ativan Hepatic Mass Question of liver mass which has increased in size from the previous ultrasound in August, but MRI done as outpatient and there was no suggestion of hepatocellular carcinoma, AFP level was somewhat high. Repeat AFP levels and followup with Hepatology at [place] as pe GI. History of stroke, no residual deficits. We are holding aspirin for now. History of depression, on Cymbalta. We will follow his liver function tests. History of chronic systolic heart failure secondary to alcoholic cardiomyopathy , Echocardiogram in September shows ejection fraction of 60-65% and grade 1 diastolic dysfunction. Lasix and Aldactone on hold again History of deep vein thrombosis in the right cephalic vein in 2013, not on any anticoagulation. History of supraventricular tachycardia. The patient received adenosine in the Emergency Room. Missed his Lopressor today. Holding Lopressor for sepsis. Restart when sepsis improves. Deep venous thrombosis prophylaxis, SCDs for now. DISPOSITION:Monitor in tele floor. CODE : Level 1. No family members at bedside to discuss Discussed with the Son 11/18/16 in detailed yesterday Vital Signs: Date Time Temp Pulse Resp B/P Pulse Ox O2 Delivery O2 Flow Rate FiO2 11/19/16 16:00 Room Air 11/19/16 15:15 36.6 95 18 92/64 91 Room Air 11/19/16 12:17 36.6 95 18 85/62 95 Room Air 11/19/16 12:00 Room Air 11/19/16 08:00 93 Room Air 11/19/16 07:41 36.4 91 18 95/66 93 Room Air 11/19/16 04:10 37.1 105 18 90/61 91 11/19/16 04:00 92 Room Air 11/18/16 23:59 92 Room Air 11/18/16 23:43 37.1 101 22 91/60 92 11/18/16 20:00 Room Air 11/18/16 19:23 37.1 101 18 97/64 96 Room Air Lab Results: Results Past 24 Hours Test 11/19/16 05:54 11/19/16 05:55 11/19/16 06:39 11/19/16 15:07 Range/Units Sodium Level 129 136-145 mmol/L Potassium Level 3.9 3.5-5.1 mmol/L Chloride Level 95 98-107 mmol/L Carbon Dioxide Level 25 21-32 mmol/L Anion Gap 9.0 3-11 mmol/L Blood Urea Nitrogen 24 7-18 mg/dl Creatinine 2.10 0.60-1.40 mg/dl Est Creatinine Clear Calc Drug Dose 55.4 ml/min Estimated GFR () 40.7 Estimated GFR (Non- 35.1 BUN/Creatinine Ratio 11.4 10-20 Random Glucose 97 70-99 mg/dl Calcium Level 7.3 8.5-10.1 mg/dl Phosphorus Level 1.9 2.5-4.9 mg/dl Magnesium Level 1.7 1.8-2.4 mg/dl Total Bilirubin 4.9 0.2-1 mg/dl Direct Bilirubin 4.0 0-0.2 mg/dl Aspartate Amino Transf (AST/SGOT) 200 15-37 U/L Alanine Aminotransferase (ALT/SGPT) 97 12-78 U/L Alkaline Phosphatase 515 45-117 U/L Total Protein 4.9 6.4-8.2 gm/dl Albumin 1.7 3.4-5.0 gm/dl Lipase 132 73-393 U/L White Blood Count 12.09 4.8-10.8 K/uL Red Blood Count 3.46 4.7-6.1 M/uL Hemoglobin 12.2 14.0-18.0 g/dL Hematocrit 34.1 42-52 % Mean Corpuscular Volume 98.6 80-100 fL Mean Corpuscular Hemoglobin 35.3 25-34 pg Mean Corpuscular Hemoglobin Concent 35.8 32-36 g/dl RDW Standard Deviation 59.2 36.4-46.3 fL RDW Coefficient of Variation 16.6 11.5-14.5 % Platelet Count 84 130-400 K/uL Mean Platelet Volume 11.2 7.4-10.4 fL Prothrombin Time 16.9 9.0-12.0 SECONDS Prothromb Time International Ratio 1.6 0.9-1.1 Activated Partial Thromboplast Time 39.2 21.0-31.0 SECONDS Partial Thromboplastin Ratio 1.5 Ammonia < 10.0 11-32 umol/L Bedside Glucose 96 70-99 mg/dl Test 11/19/16 15:30 Range/Units
--- NOTE | 2016-11-19 18:36 | NEPHROLOGY CONSULTATION ---
DATE OF CONSULTATION: 11/19/2016 REASON FOR CONSULTATION: LORRIE. HISTORY OF PRESENT ILLNESS: This is a 51-year-old male with significant history of alcoholism with liver cirrhosis, who presented with elevated ammonia levels, hyponatremia and was continuing to drink on a daily basis and was confused on admission. The patient was in SVT in the ER and did require adenosine. The patient's sodium on admission was 123, thought to be secondary to volume overload with excessive fluid intake and is now up to 129. The patient's creatinine on admission was 1.2, was 1.3 on the and this morning is up to 2.1. The patient's urine output has also decreased from 1300 mL on the to 350 mL on the to 370 mL today. The patient is also having worsening confusion and lethargy and underwent a paracentesis today. The patient did have CTA of the chest, abdomen and pelvis, requiring contrast on the . REVIEW OF SYSTEMS: At this time is unobtainable. The patient is too lethargic to answer questions. PAST MEDICAL HISTORY: Hypertension, asthma, hyperlipidemia, sleep apnea, history of alcoholism, liver cirrhosis,alcoholic cardiomyopathy, hypomag. PAST SURGICAL HISTORY: Tonsillectomy, hemorrhoidectomy, right knee scope. FAMILY HISTORY: Father with colon and pancreatic cancer. SOCIAL HISTORY: Former smoker, quit in 1984. Still occasionally chews snuff. Heavy alcohol use with multiple admissions. No drugs. Lives alone. CURRENT MEDICATIONS: Rifaximin 550 mg p.o. b.i.d., albumin 25 g IV q. 6, Toprol-XL 50 mg daily, folic acid 1 mg daily, thiamine 100 mg daily, Protonix 40 mg p.o. b.i.d., Cymbalta 30 mg p.o. daily, multivitamin daily, Flomax 0.4 mg daily, Zosyn 3.375 IV q. 8, Tums 1500 mg p.o. b.i.d., magnesium chloride 64 mg p.o. b.i.d., Elavil 10 mg p.o. at night, Librium 50 mg p.o. t.i.d. PHYSICAL EXAMINATION: VITAL SIGNS: Temperature 36.6, pulse 95, respiratory rate 18, blood pressure is 85/62. Satting 95% on room air. Blood pressure low over the past 24 hours, was in the 120s previously and now in the 90s to 80s systolic. GENERAL: Lethargic, arousable but goes right back to sleep. EYES: Positive scleral icterus. ENT: Moist mucous membranes. NECK: Supple. PULMONARY: Basilar rales. CARDIAC: Regular rate and rhythm. ABDOMEN: Bowel sounds positive, soft, nontender, recent paracentesis. EXTREMITIES: +1 edema mostly around the ankles. NEUROLOGIC: Lethargic. DERM: No rash or ulcers noted. LABS: Sodium level is 129, potassium is 3.9, chloride is 95, bicarb is 25, BUN is 24, creatinine is 2.1, glucose 97, calcium 7.3, phos of 1.9, mag of 1.7, T bili of 4.9, alk phos of 515, ammonia level less than 10. Albumin of 1.7, lipase of 132. Blood gas from the shows VBG: pH 7.41, pCO2 of 39, pO2 of 26 and bicarb of 24. White count is 12, H\T\H 12 and 34, platelet count is 84, 24-hour urine sodium is pending. Lyme negative, flu negative. INR was up to 1.6. Blood cultures negative. Urine cultures negative. Chest x-ray from the showed no active disease. IMPRESSION: 1. Hyponatremia with a sodium level of 123 on admission and now up to 129, appears to have been corrected appropriately, likely secondary to excessive alcohol intake and is improving through the use of fluid restriction. We will check a urine osmolality to be thorough. 2. Acute kidney injury. Creatinine was at baseline 1.3 and has worsened to 2.1 this morning with decreasing urine output in the setting of contrast on the . No NSAIDs were given. The patient has been on vancomycin with the last level on the 23.5 and the patient's blood pressures now are in the 80s-90s systolic. So we have multiple etiologies to the worsening kidney function, could have an element of hepatorenal syndrome. 24-hour urine sodium has just been completed and we will also check a random urine sodium as well. Currently started on albumin 25 g q. 6 and if urine sodium less than 10, would consider starting octreotide and midodrine. We also could have hypotension causing decreased perfusion to the kidneys. Could have an element of vancomycin nephrotoxicity and would recheck a vancomycin level in the a.m. Could have contrast-induced nephrotoxicity as well. I would recommend no further paracenteses at this time, given the fact that the patient's volume status appears well to depleted. Would continue aggressive albumin supplementation to try to help mobilize extra fluid plus or minus the use of midodrine and octreotide depending on the urine sodium. Check a vancomycin level and follow closely, looking for signs of infection. The patient does not appear to be clinically doing better today with worsening mental status, LORRIE with decreased urination. Overall, poor prognosis. No indication for emergent dialysis at this time; however, creatinine likely to continue to worsen before it starts to improve and may need dialysis during this admission. 3. Hypophosphatemia with phosphorus level of 1.9. Would recheck phosphorus levels tomorrow. With worsening kidney function, phosphorus level is likely to go up. 4. Hypomagnesemia, continue to replete. 5. Hypocalcemia, which corrects to normal range when accounting for albumin. We will check an ionized calcium tomorrow. In my opinion, the patient appears volume depleted with low blood pressures and should improve with volume resuscitation with the albumin. I appreciate consultation. FARRAH
[2016-11-19 19:13] LABS: URINE COLLECTION TIME 24 HOURS
[2016-11-19 19:14] LABS: URINE SODIUM 24 HR < 5 mmol/24 (40-220)
[2016-11-19] MEDS: AMITRIPTYLINE HCL 10 MG TAB PO SCH (21:20)
[2016-11-19] MEDS: ACETAMINOPHEN 325 MG TAB PO PRN (21:20)
[2016-11-19] MEDS: RIFAXIMIN TAB 550 MG TAB PO SCH (21:21)
[2016-11-20] VITALS (9 sets, daily range): BP systolic 90–131; BP diastolic 57–84; PULSE 88–105; TEMP 36.6–38.1; O2SAT 91–96
[2016-11-20] MEDS: ALBUMIN HUMAN 25% 12.5 GM/50 ML VIAL IV SCH ×5 (01:08→20:45)
[2016-11-20] MEDS: PIPERACILL/TAZOBAC IV 3.375 GM in DEXTROSE 5% 100ML IV SCH ×3 (02:10→17:58)
[2016-11-20] MEDS ORDERED: OCTREOTIDE ACETATE 100 MCG/ML VIAL SQ SCH (06:45)
--- NOTE | 2016-11-20 06:45 | Nephrology Progress Note ---
Nephrology Progress Note Date of Service: Nov 20, 2016. Subjective 51 yo male with alcoholic cirrhosis who had acute worsening of kidney function with lower blood pressures and decreased urine output. pt was more lethargic yesterday. started on albumin and appears urine output did improve overnight. pt is more awake this morning but has had intermittent confusion. complaining of leg pains. Objective Date Time Temp Pulse Resp B/P Pulse Ox O2 Delivery O2 Flow Rate FiO2 11/20/16 05:30 36.8 88 16 92/64 95 Room Air 11/20/16 04:02 Room Air 11/20/16 03:25 36.8 90 18 97/68 91 Room Air 11/20/16 01:05 36.6 90 20 95/66 96 Room Air 11/20/16 00:02 Room Air 11/19/16 23:30 36.5 92 20 99/64 94 Room Air 11/19/16 20:47 36.7 93 18 105/60 95 Room Air 11/19/16 20:01 Room Air 11/19/16 16:00 Room Air 11/19/16 15:15 36.6 95 18 92/64 91 Room Air 11/19/16 12:17 36.6 95 18 85/62 95 Room Air 11/19/16 12:00 Room Air 11/19/16 08:00 93 Room Air 11/19/16 07:41 36.4 91 18 95/66 93 Room Air Physical Exam: General-awake but still lethargic, obese Eyes-+scleral icterus ENT-mmm Neck-supple Lungs-slight end expiratory wheeze Heart-rrr Abdomen-distended but soft Extremities-+2 edema in legs Neuro-more awake compared to yesterday but still lethargic Current Inpatient Medications Medications (Trade) Dose Ordered Sig/Gualberto Route Start Time Stop Time Status Last Admin Dose Admin Al Hydrox/Mg Hydrox/Simethicone (Maalox Max Susp) 15 ml Q4H PRN PO 11/15/16 18:00 12/15/16 17:59 Ondansetron HCl (Zofran Inj) 4 mg Q6H PRN IV 11/15/16 18:00 17 17:59 11/16/16 06:10 4 MG Nitroglycerin (Nitrostat Tab) 0.4 mg UD PRN SL 11/15/16 18:00 12/15/16 17:59 Calcium Carbonate (Tums Chew Tab) 1,500 mg BID PO 11/15/16 21:00 12/15/16 20:59 11/19/16 21:21 1,500 MG Duloxetine HCl (Cymbalta Cap) 30 mg DAILY PO 11/16/16 09:00 12/16/16 08:59 11/19/16 08:55 30 MG Albuterol/ Ipratropium (Combivent Respimat Inh) 1 puffs QID PRN INH 11/15/16 18:00 12/15/16 17:59 Magnesium Chloride (Slow-Mag Tab) 64 mg BID PO 11/15/16 21:00 12/15/16 20:59 11/19/16 21:20 64 MG Multivitamins (Multivitamin Tab) 1 tab DAILY PO 11/16/16 09:00 12/16/16 08:59 11/19/16 08:56 1 TAB Amitriptyline HCl (Elavil Tab) 10 mg HS PO 11/15/16 21:00 12/15/16 20:59 11/19/16 21:20 10 MG Tamsulosin HCl (Flomax Cap) 0.4 mg DAILY PO 11/16/16 09:00 12/16/16 08:59 11/19/16 08:55 0.4 MG Chlordiazepoxide (Librium Cap) 50 mg TID PO 11/15/16 21:00 11/29/16 20:59 11/19/16 20:19 50 MG Multivitamins/ Minerals (Multivitamin W/ Minerals Tab) 1 tab QAM PO 11/16/16 09:00 12/16/16 08:59 11/19/16 08:57 1 TAB Piperacillin Sod/ Tazobactam Sod 1 ea 1 ea UD PRN N/A 11/15/16 19:45 12/15/16 19:44 Piperacillin Sod/ Tazobactam Sod/ Dextrose (Zosyn Iv/D5 100ml) 115 ml @ 28.75 mls/ hr Q8H IV 11/16/16 02:00 11/26/16 01:59 11/20/16 02:10 28.75 MLS/HR Metoprolol Tartrate (Lopressor Iv) 2.5 mg Q6H PRN IV 11/15/16 20:00 12/15/16 19:59 Future hold 11/17/16 21:09 2.5 MG Lorazepam (Ativan Inj) 2 mg Q1HWA PRN IV 11/16/16 10:00 12/16/16 09:59 11/17/16 23:45 2 MG Pantoprazole Sodium (Protonix Tab) 40 mg BID PO 11/16/16 21:00 12/16/16 20:59 11/19/16 21:22 40 MG Metoprolol Succinate (Toprol Xl Tab) 50 mg QAM PO 11/18/16 09:00 12/16/16 08:59 11/18/16 07:17 50 MG Folic Acid (Folvite Tab) 1 mg DAILY PO 11/18/16 09:00 12/18/16 08:59 11/19/16 08:55 1 MG Thiamine HCl (Vitamin B-1 Tab) 100 mg QAM PO 11/18/16 09:00 12/18/16 08:59 11/19/16 08:56 100 MG Acetaminophen (Tylenol Tab) 325 mg Q6H PRN PO 11/17/16 23:30 12/17/16 23:29 11/19/16 21:20 325 MG Albumin Human (Albumin 25%) 25 gm Q6 IV 11/19/16 12:00 11/22/16 11:59 11/20/16 05:30 25 GM Rifaximin (Xifaxan Tab) 550 mg BID PO 11/19/16 21:00 12/19/16 20:59 11/19/16 21:21 550 MG Midodrine (Proamatine Tab) 5 mg TID@, PO 11/20/16 08:00 12/20/16 07:59 UNV Octreotide Acetate (Sandostatin Inj) 100 mcg Q8H SQ 11/20/16 06:45 12/20/16 06:44 UNV Last 24 Hours Test 11/19/16 16:00 11/19/16 22:40 11/20/16 04:44 Urine Collection Time 24 HOURS Urine Total Volume 350 mL Urine Sodium mEQ/L 12 meq/L Urine Sodium 24 Hour < 5 mmol/24 Urine Random Sodium 9 mEq/L Assessment & Plan LORRIE-initially oliguric but urine output has increased overnight. on albumin and would continue albumin. urine sodium less than 10 and treating for possible hepatorenal syndrome with starting midodrine and octreotide. was on vancomycin and rechecking level. may have element of vanco toxicity but lower on differential. also had contrast on the and developed the lorrie about 3 to 4 days later which fits with contrast induced nephrotoxicity. systolics are still in the 90s suggestive of pre-renal state. would continue albumin, hold vanco, started midodrine and octreotide and hopefully creatinine eventually peaks and starts to improve and systolics improve into the 120s.
[2016-11-20] MEDS ORDERED: MIDODRINE 2.5 MG TAB PO SCH (08:00)
[2016-11-20] MEDS: MAGNESIUM CHLORIDE 64MG DELAYED REL TAB PO SCH ×2 (08:25→20:47)
[2016-11-20] MEDS: RIFAXIMIN TAB 550 MG TAB PO SCH ×2 (08:25→20:48)
[2016-11-20] MEDS: TAMSULOSIN HCL 0.4 MG CAP PO SCH (08:25)
[2016-11-20] MEDS: PANTOprazole SOD 40 MG TAB PO SCH ×2 (08:25→20:49)
[2016-11-20] MEDS: THIAMINE HCL 100 MG TAB PO SCH (08:26)
[2016-11-20] MEDS: DULOXETINE (CYMBALTA) 30 MG CAP PO SCH (08:26)
[2016-11-20] MEDS: CALCIUM CARBONATE 500 MG CHEWABLE PO SCH ×2 (08:26→20:48)
[2016-11-20] MEDS: MULTIVITAMIN TAB PO SCH (08:26)
[2016-11-20] MEDS: CEROVITE ADV FORMULA TAB PO SCH (08:26)
[2016-11-20] MEDS: CHLORDIAZEPOXIDE 25 MG CAP PO SCH ×3 (08:31→20:46)
[2016-11-20 08:34] LABS: BUN/CREATININE RATIO 16.6 (10-20); CALCIUM 7.6 mg/dl (8.5-10.1); CREATININE 1.4 mg/dl (0.60-1.40); MAGNESIUM 1.7 mg/dl (1.8-2.4); POTASSIUM 3.4 mmol/L (3.5-5.1); URIC ACID 4.2 mg/dl (2.6-7.2)
[2016-11-20 08:45] LABS: PHOSPHORUS 1.5 mg/dl (2.5-4.9)
[2016-11-20] MEDS: METOPROLOL SUCC 50MG EXT REL TAB PO SCH (09:00)
[2016-11-20] MEDS ORDERED: POTASSIUM PHOS 3 MMOL/1 ML INFUSION IV STA (09:12)
[2016-11-20] MEDS ORDERED: POTASSIUM PHOSPHATE INJ 30 MMOL in SODIUM CHLORIDE 0.9% 500ML 500 ML IV ONE (10:00)
--- NOTE | 2016-11-20 10:32 | Gastroenterology Progress Note ---
Progress Note Date of Service: Nov 20, 2016 Subjective Pt evaluation today including: conversation w/ patient, physical exam, chart review, lab review, review of studies, review of inpatient medication list Pt still confused; Does opens eyes to name called, oriented to self only. He mostly mumbles answers, some words incomprehensible. Follows simple commands such as to open eyes. Unable to obtain ROS Evaluated by Nephro yesterday, Torsten 9, started on Albumin, Midodrine, Octreotide for possible Hepatorenal syndrome. Cr down from 2.1 to 1.4. UOP picking up. Review of Systems Constitutional: + see HPI Medications Current Inpatient Medications Medications (Trade) Dose Ordered Sig/Gualberto Route Start Time Stop Time Status Last Admin Dose Admin Al Hydrox/Mg Hydrox/Simethicone (Maalox Max Susp) 15 ml Q4H PRN PO 11/15/16 18:00 12/15/16 17:59 Ondansetron HCl (Zofran Inj) 4 mg Q6H PRN IV 11/15/16 18:00 12/15/16 17:59 11/16/16 06:10 4 MG Nitroglycerin (Nitrostat Tab) 0.4 mg UD PRN SL 11/15/16 18:00 12/15/16 17:59 Calcium Carbonate (Tums Chew Tab) 1,500 mg BID PO 11/15/16 21:00 12/15/16 20:59 11/20/16 08:26 1,500 MG Duloxetine HCl (Cymbalta Cap) 30 mg DAILY PO 11/16/16 09:00 12/16/16 08:59 11/20/16 08:26 30 MG Albuterol/ Ipratropium (Combivent Respimat Inh) 1 puffs QID PRN INH 11/15/16 18:00 12/15/16 17:59 Magnesium Chloride (Slow-Mag Tab) 64 mg BID PO 11/15/16 21:00 12/15/16 20:59 11/20/16 08:25 64 MG Multivitamins (Multivitamin Tab) 1 tab DAILY PO 11/16/16 09:00 12/16/16 08:59 11/20/16 08:26 1 TAB Amitriptyline HCl (Elavil Tab) 10 mg HS PO 11/15/16 21:00 12/15/16 20:59 11/19/16 21:20 10 MG Tamsulosin HCl (Flomax Cap) 0.4 mg DAILY PO 11/16/16 09:00 12/16/16 08:59 11/20/16 08:25 0.4 MG Chlordiazepoxide (Librium Cap) 50 mg TID PO 11/15/16 21:00 11/29/16 20:59 11/20/16 08:31 50 MG Multivitamins/ Minerals (Multivitamin W/ Minerals Tab) 1 tab QAM PO 11/16/16 09:00 12/16/16 08:59 11/20/16 08:26 1 TAB Piperacillin Sod/ Tazobactam Sod 1 ea 1 ea UD PRN N/A 11/15/16 19:45 12/15/16 19:44 Piperacillin Sod/ Tazobactam Sod/ Dextrose (Zosyn Iv/D5 100ml) 115 ml @ 28.75 mls/ hr Q8H IV 11/16/16 02:00 11/26/16 01:59 11/20/16 02:10 28.75 MLS/HR Metoprolol Tartrate (Lopressor Iv) 2.5 mg Q6H PRN IV 11/15/16 20:00 12/15/16 19:59 Future hold 11/17/16 21:09 2.5 MG Lorazepam (Ativan Inj) 2 mg Q1HWA PRN IV 11/16/16 10:00 12/16/16 09:59 11/17/16 23:45 2 MG Pantoprazole Sodium (Protonix Tab) 40 mg BID PO 11/16/16 21:00 12/16/16 20:59 11/20/16 08:25 40 MG Metoprolol Succinate (Toprol Xl Tab) 50 mg QAM PO 11/18/16 09:00 12/16/16 08:59 11/18/16 07:17 50 MG Folic Acid (Folvite Tab) 1 mg DAILY PO 11/18/16 09:00 12/18/16 08:59 11/20/16 08:26 1 MG Thiamine HCl (Vitamin B-1 Tab) 100 mg QAM PO 11/18/16 09:00 12/18/16 08:59 11/20/16 08:26 100 MG Acetaminophen (Tylenol Tab) 325 mg Q6H PRN PO 11/17/16 23:30 12/17/16 23:29 11/19/16 21:20 325 MG Albumin Human (Albumin 25%) 25 gm Q6 IV 11/19/16 12:00 11/22/16 11:59 11/20/16 05:30 25 GM Rifaximin (Xifaxan Tab) 550 mg BID PO 11/19/16 21:00 12/19/16 20:59 11/20/16 08:25 550 MG Midodrine (Proamatine Tab) 5 mg TID@08,12,17 PO 11/20/16 08:00 12/20/16 07:59 11/20/16 08:33 5 MG Octreotide Acetate 100 mcg 100 mcg Q8H SQ 11/20/16 06:45 12/20/16 06:44 11/20/16 08:34 100 MCG Potassium Phosphate/Sodium Chloride (Potassium Phosphate Inj/Nss 500ml) 510 ml @ 102 mls/hr TODAY@1000 ONCE IV 11/20/16 10:00 11/20/16 14:59 Objective Vital Signs Date Time Temp Pulse Resp B/P Pulse Ox O2 Delivery O2 Flow Rate FiO2 11/20/16 08:43 36.6 95 20 90/57 95 Room Air 11/20/16 05:30 36.8 88 16 92/64 95 Room Air 11/20/16 04:02 Room Air 11/20/16 03:25 36.8 90 18 97/68 91 Room Air 11/20/16 01:05 36.6 90 20 95/66 96 Room Air 11/20/16 00:02 Room Air 11/19/16 23:30 36.5 92 20 99/64 94 Room Air 11/19/16 20:47 36.7 93 18 105/60 95 Room Air 11/19/16 20:01 Room Air 11/19/16 16:00 Room Air 11/19/16 15:15 36.6 95 18 92/64 91 Room Air 11/19/16 12:17 36.6 95 18 85/62 95 Room Air 11/19/16 12:00 Room Air Physical Exam General Appearance: + mild distress, + obese Neck: supple, no JVD, trachea midline Respiratory/Chest: no respiratory distress, no accessory muscle use, + decreased breath sounds Cardiovascular: regular rate, rhythm, no gallop, no murmur Abdomen: soft, + abnormal bowel sounds (hypoactive), + tenderness (grimaces when abd palpated) Extremities: + swelling (+1 pitting edema on bilateral LE) Neurologic/Psych: + disoriented Skin: + jaundice Laboratory Results Last 24 Hours Test 11/19/16 16:00 11/19/16 22:40 11/20/16 07:35 Urine Collection Time 24 HOURS Urine Total Volume 350 mL Urine Sodium mEQ/L 12 meq/L Urine Sodium 24 Hour < 5 mmol/24 Urine Random Sodium 9 mEq/L Sodium Level 131 mmol/L Potassium Level 3.4 mmol/L Chloride Level 96 mmol/L Carbon Dioxide Level 22 mmol/L Anion Gap 13.0 mmol/L Blood Urea Nitrogen 23 mg/dl Creatinine 1.40 mg/dl Est Creatinine Clear Calc Drug Dose 82.9 ml/min Estimated GFR () 66.5 Estimated GFR (Non- 57.4 BUN/Creatinine Ratio 16.6 Random Glucose 78 mg/dl Uric Acid 4.2 mg/dl Calcium Level 7.6 mg/dl Ionized Calcium 0.99 mmol/l Phosphorus Level 1.5 mg/dl Magnesium Level 1.7 mg/dl Total Bilirubin 6.6 mg/dl Aspartate Amino Transf (AST/SGOT) 191 U/L Alanine Aminotransferase (ALT/SGPT) 98 U/L Alkaline Phosphatase 429 U/L Total Protein 5.1 gm/dl Albumin 2.6 gm/dl Globulin 2.5 gm/dl Albumin/Globulin Ratio 1.0 Random Vancomycin Level 19.1 mcg/ml Assessment and Plan Patient is a 51 year old male w ETOH cirrhosis, admitted for sepsis and likely ETOH hepatitis eval and management. MELD 16. Maddrey's score <32. He had DTs and currently still confused. His Cr lavinia to 2.1 today. LFTs stable. Blood, Urine cultures, Ascitic fluid cx negative. No signs of SBP. CXR and Head CT unremarkable. Rising Cr ? hepatorenal syndrome vs Vancomycin toxicity vs contrast induced kidney injury. U sodium 9. Nephro following. Albumin 25% 25g q6Hr, Midodrine 5mg TID, Octreotide 100mcg q8hr started. Cr down from 2.1 to 1.4 today. UOP picking up. Recalculated MELD 22, Maddreys score 29. Plans - Daily CMP, every other day INR - U/S guided paracentesis; verbal consent to be obtained from pt's POA (Selena Rodriguez, ex ) as pt is confused -> 3L removed on 11/19, no signs of SBP - U/S doppler to r/o PVT; eventually may need to repeat MRCP given alk phos elevation. -> normal u/s doppler - Continue Albumin, Midodrine, Octreotide; Nephro following, appreciate recs. - Hold Lactulose; continue Rifaximin 550mg BID. - Repeat AFP; request for Hepatology referral at [facility] to eval liver lesion done, appt pending. -> AFP 4. - No indication for Prednisolone for Maddreys Score <32. - Continue DT protocol - Consider psych consult for depression eval, ETOH abuse though pt had repeatedly refused rehab in the past. - Consider repeat head CT for confusion. - Low Salt diet I saw and evaluated the patient. He remains confused today and is not able to answer questions appriately. Recomendations: Agree with use of Alb/Midrodrine and Octreotide for suspected HRS. If bilirubin continues to rise we may need to consider use of Methyprednisolone for alcoholic hepatitis. Overall, the patient has a very poor long-term prognosis due to continued alcohol consumption.
[2016-11-20] MEDS ORDERED: CALCIUM GLUCONATE 10% 1,000 MG in SODIUM CHLORIDE 0.9% 50ML 50 ML IV ONE (14:00)
--- NOTE | 2016-11-20 16:03 | Progress Note ---
Internal Med Progress Note Date of Service: Nov 20, 2016. Provider Documentation: SUBJECTIVE: The patient was seen and examined Remains confused and very lethargic Tremors are better Condition remains critical OBJECTIVE: Vital Signs-as noted below Exam: General-Generally weak Remains Pleasantly confused Eyes-normal ENT-normal Neck-supple Lungs- breath sound bilaterally No crackles Heart-Regular Abdomen-Distended,soft ,mildly tender ,clinically moderate ascites Bowel sound sluggish Extremities-Trace edema bilaterally Neuro-AA Very weak and lethargic Lab data as noted below. ASSESSMENT & PLAN: Possible sepsis, Tachycardia and elevated white count.UTI? No SBP-s/p paracentesis Lactic acid trended down Was on iv Vanco and Zosyn Follow cultures-negative so far D/C Vancomycin on 11/17-creatinine is going up and negative culture Continue Zosyn for now-will finish 7 days course Acute Renal Failure Likely contributing factors-Intravascular dehydration,Use of Vancomycin ,Recent use of Contrast or Hepato-renal syndrome Appreciate Nephrology input Getting IV Albumin Renal function is better today Monitor Electrolytes Imbalance Supplement and recheck Alcoholic Hepatitis Was admitted in September Now with increased LFTs and Ammonia and confusion Was on Prednisone before Appreciate GI input LFTs are improving Will need follow up in [place] Continue Protonix 40mg BID, Lactulose 30g daily, Lasix 40mg, Spironolactone 100mg Recheck Ammonia level-improved Alcoholism. Last drink ~ 2 days ago 11/15/16 Continue DT prophylaxis A little Drowsy from Ativan Received 2 doses of Ativan last night as I was told Hold Librium Minimal use of Ativan Very noncompliant and wants to continue to use Alcohol Hepatic Mass Question of liver mass which has increased in size from the previous ultrasound in August, but MRI done as outpatient and there was no suggestion of hepatocellular carcinoma, AFP level was somewhat high. Repeat AFP levels and followup with Hepatology at [place] as pe GI. History of stroke, no residual deficits. We are holding aspirin for now. History of depression, on Cymbalta. We will follow his liver function tests. History of chronic systolic heart failure secondary to alcoholic cardiomyopathy , Echocardiogram in September shows ejection fraction of 60-65% and grade 1 diastolic dysfunction. Lasix and Aldactone on hold again due to low BP History of deep vein thrombosis in the right cephalic vein in 2013, not on any anticoagulation. History of supraventricular tachycardia. The patient received adenosine in the Emergency Room. Missed his Lopressor today. Holding Lopressor for sepsis. Restart when sepsis improves. Deep venous thrombosis prophylaxis, SCDs for now. DISPOSITION:Monitor in tele floor. CODE : Level 1. No family members at bedside to discuss Discussed with the Son 11/18/16 in detailed yesterday Will discuss with the POA Vital Signs: Date Time Temp Pulse Resp B/P Pulse Ox O2 Delivery O2 Flow Rate FiO2 11/20/16 15:40 36.9 94 22 100/68 93 Room Air 11/20/16 12:00 Room Air 11/20/16 11:48 36.7 105 18 99/66 93 Nasal Cannula 11/20/16 08:43 36.6 95 20 90/57 95 Room Air 11/20/16 08:00 Room Air 11/20/16 05:30 36.8 88 16 92/64 95 Room Air 11/20/16 04:02 Room Air 11/20/16 03:25 36.8 90 18 97/68 91 Room Air 11/20/16 01:05 36.6 90 20 95/66 96 Room Air 11/20/16 00:02 Room Air 11/19/16 23:30 36.5 92 20 99/64 94 Room Air 11/19/16 20:47 36.7 93 18 105/60 95 Room Air 11/19/16 20:01 Room Air 11/19/16 16:00 Room Air Lab Results: Results Past 24 Hours Test 11/19/16 16:00 11/19/16 22:40 11/20/16 07:35 11/20/16 14:00 Range/Units Urine Collection Time 24 HOURS Urine Total Volume 350 mL Urine Sodium mEQ/L 12 meq/L Urine Sodium 24 Hour < 5 40-220 mmol/24 Urine Random Sodium 9 9 mEq/L Sodium Level 131 136-145 mmol/L Potassium Level 3.4 3.5-5.1 mmol/L Chloride Level 96 98-107 mmol/L Carbon Dioxide Level 22 21-32 mmol/L Anion Gap 13.0 3-11 mmol/L Blood Urea Nitrogen 23 7-18 mg/dl Creatinine 1.40 0.60-1.40 mg/dl Est Creatinine Clear Calc Drug Dose 82.9 ml/min Estimated GFR () 66.5 Estimated GFR (Non- 57.4 BUN/Creatinine Ratio 16.6 10-20 Random Glucose 78 70-99 mg/dl Uric Acid 4.2 2.6-7.2 mg/dl Calcium Level 7.6 8.5-10.1 mg/dl Ionized Calcium 0.99 1.12-1.32 mmol/l Phosphorus Level 1.5 2.5-4.9 mg/dl Magnesium Level 1.7 1.8-2.4 mg/dl Total Bilirubin 6.6 0.2-1 mg/dl Aspartate Amino Transf (AST/SGOT) 191 15-37 U/L Alanine Aminotransferase (ALT/SGPT) 98 12-78 U/L Alkaline Phosphatase 429 45-117 U/L Total Protein 5.1 6.4-8.2 gm/dl Albumin 2.6 3.4-5.0 gm/dl Globulin 2.5 2.5-4.0 gm/dl Albumin/Globulin Ratio 1.0 0.9-2 Random Vancomycin Level 19.1 mcg/ml
[2016-11-20] MEDS: ACETAMINOPHEN 325 MG TAB PO PRN (19:13)
[2016-11-20] MEDS: AMITRIPTYLINE HCL 10 MG TAB PO SCH (20:47)
[2016-11-21] MEDS: ALBUMIN HUMAN 25% 12.5 GM/50 ML VIAL IV SCH ×4 (02:47→18:43)
[2016-11-21] MEDS: PIPERACILL/TAZOBAC IV 3.375 GM in DEXTROSE 5% 100ML IV SCH ×3 (02:47→18:43)
[2016-11-21 03:54] VITALS: BP 107/73; PULSE 105; TEMP 37.1; O2SAT 94
[2016-11-21] MEDS: CHLORDIAZEPOXIDE 25 MG CAP PO SCH ×3 (07:20→21:40)
[2016-11-21] MEDS: CEROVITE ADV FORMULA TAB PO SCH (07:20)
[2016-11-21] MEDS: MULTIVITAMIN TAB PO SCH (07:20)
[2016-11-21] MEDS: THIAMINE HCL 100 MG TAB PO SCH (07:20)
[2016-11-21] MEDS: CALCIUM CARBONATE 500 MG CHEWABLE PO SCH ×2 (07:21→21:40)
[2016-11-21] MEDS: PANTOprazole SOD 40 MG TAB PO SCH ×2 (07:21→21:40)
[2016-11-21] MEDS: TAMSULOSIN HCL 0.4 MG CAP PO SCH (07:21)
[2016-11-21] MEDS: RIFAXIMIN TAB 550 MG TAB PO SCH ×2 (07:21→21:40)
[2016-11-21] MEDS: MAGNESIUM CHLORIDE 64MG DELAYED REL TAB PO SCH ×2 (07:21→21:40)
[2016-11-21] MEDS: DULOXETINE (CYMBALTA) 30 MG CAP PO SCH (07:21)
[2016-11-21 08:00] VITALS: BP 97/69; PULSE 98; TEMP 36.9; O2SAT 94
[2016-11-21] MEDS: METOPROLOL SUCC 50MG EXT REL TAB PO SCH (09:00)
[2016-11-21 09:13] LABS: HEMATOCRIT 30.3 % (42-52); MEAN CORPUSCULAR HEMOGLOBIN 36.3 pg (25-34); MEAN CORPUSCULAR HGB CONC 36.3 g/dl (32-36); RED BLOOD COUNT 3.03 M/uL (4.7-6.1); WHITE BLOOD COUNT 8.61 K/uL (4.8-10.8)
[2016-11-21 09:31] LABS: INR 1.7 (0.9-1.1); PROTHROMBIN TIME (PATIENT) 18.1 SECONDS (9.0-12.0)
[2016-11-21 09:32] LABS: MEAN PLATELET VOLUME 11.9 fL (7.4-10.4); PARTIAL THROMBOPLASTIN RATIO 1.9; PLATELET COUNT 49 K/uL (130-400)
[2016-11-21 09:47] LABS: BUN/CREATININE RATIO 14.7 (10-20); CALCIUM 7.9 mg/dl (8.5-10.1); CREATININE 1.3 mg/dl (0.60-1.40); MAGNESIUM 1.8 mg/dl (1.8-2.4); POTASSIUM 3.7 mmol/L (3.5-5.1)
--- NOTE | 2016-11-21 09:48 | DIAGNOSTIC IMAGING REPORT ---
CT HEAD WITHOUT CONTRAST (CT) CLINICAL HISTORY: Change in neurological status. Suspected stroke. COMPARISON STUDY: 11/15/2016k TECHNIQUE: Axial CT of the brain is performed from the vertex to the skull base. IV contrast was not administered for this examination. CT DOSE: 537.48 mGy.cm FINDINGS: No intra or extra-axial mass lesions are visualized. There is no CT evidence of acute cortical infarction. There is no evidence of midline shift. There is no acute hemorrhage. No calvarial fractures are visualized. There are minimal white matter hypodensities likely on a small vessel basis. There is no evidence of pathologic ventricular dilatation. There is no evidence of acute sinusitis IMPRESSION: No acute intracranial findings Electronically signed by: Chevy Parmar M.D. 11/21/2016 9:46 AM Dictated Date/Time: 11/21/2016 9:45 AM
[2016-11-21 10:01] LABS: PHOSPHORUS 1.5 mg/dl (2.5-4.9)
[2016-11-21] MEDS ORDERED: prednisoLONE SYRUP 15 MG/5 ML UDP PO ONE (11:15)
[2016-11-21 11:44] VITALS: BP 121/72; PULSE 97; TEMP 37.2; O2SAT 91
[2016-11-21] MEDS ORDERED: POTASSIUM PHOS 3 MMOL/1 ML INFUSION IV STA (11:45)
[2016-11-21] MEDS ORDERED: PENTOXIFYLLINE 400MG EXT REL TAB PO ONE (12:07)
--- NOTE | 2016-11-21 12:13 | Gastroenterology Progress Note ---
Progress Note Date of Service: Nov 21, 2016 Subjective Pt evaluation today including: conversation w/ patient, physical exam, chart review, lab review, review of inpatient medication list Pt still confused, oriented to self, and place. He was able to recognize me by name. However unable to obtain ROS otherwise. Ammonia level <10, CT head unremarkable. Review of Systems Constitutional: + see HPI Medications Current Inpatient Medications Medications (Trade) Dose Ordered Sig/Gualberto Route Start Time Stop Time Status Last Admin Dose Admin Al Hydrox/Mg Hydrox/Simethicone (Maalox Max Susp) 15 ml Q4H PRN PO 11/15/16 18:00 12/15/16 17:59 Ondansetron HCl (Zofran Inj) 4 mg Q6H PRN IV 11/15/16 18:00 12/15/16 17:59 11/16/16 06:10 4 MG Nitroglycerin (Nitrostat Tab) 0.4 mg UD PRN SL 11/15/16 18:00 12/15/16 17:59 Calcium Carbonate (Tums Chew Tab) 1,500 mg BID PO 11/15/16 21:00 12/15/16 20:59 11/21/16 07:21 1,500 MG Duloxetine HCl (Cymbalta Cap) 30 mg DAILY PO 11/16/16 09:00 12/16/16 08:59 11/21/16 07:21 30 MG Albuterol/ Ipratropium (Combivent Respimat Inh) 1 puffs QID PRN INH 11/15/16 18:00 12/15/16 17:59 Magnesium Chloride (Slow-Mag Tab) 64 mg BID PO 11/15/16 21:00 12/15/16 20:59 11/21/16 07:21 64 MG Multivitamins (Multivitamin Tab) 1 tab DAILY PO 11/16/16 09:00 12/16/16 08:59 11/21/16 07:20 1 TAB Amitriptyline HCl (Elavil Tab) 10 mg HS PO 11/15/16 21:00 12/15/16 20:59 11/20/16 20:47 10 MG Tamsulosin HCl (Flomax Cap) 0.4 mg DAILY PO 11/16/16 09:00 12/16/16 08:59 11/21/16 07:21 0.4 MG Chlordiazepoxide (Librium Cap) 50 mg TID PO 11/15/16 21:00 11/29/16 20:59 11/21/16 07:20 50 MG Multivitamins/ Minerals (Multivitamin W/ Minerals Tab) 1 tab QAM PO 11/16/16 09:00 12/16/16 08:59 11/21/16 07:20 1 TAB Piperacillin Sod/ Tazobactam Sod 1 ea 1 ea UD PRN N/A 11/15/16 19:45 11/21/16 23:59 Piperacillin Sod/ Tazobactam Sod/ Dextrose (Zosyn Iv/D5 100ml) 115 ml @ 28.75 mls/ hr Q8H IV 11/16/16 02:00 11/21/16 23:59 11/21/16 02:47 28.75 MLS/HR Metoprolol Tartrate (Lopressor Iv) 2.5 mg Q6H PRN IV 11/15/16 20:00 12/15/16 19:59 Future hold 11/17/16 21:09 2.5 MG Lorazepam (Ativan Inj) 2 mg Q1HWA PRN IV 11/16/16 10:00 12/16/16 09:59 11/17/16 23:45 2 MG Pantoprazole Sodium (Protonix Tab) 40 mg BID PO 11/16/16 21:00 12/16/16 20:59 11/21/16 07:21 40 MG Metoprolol Succinate (Toprol Xl Tab) 50 mg QAM PO 11/18/16 09:00 12/16/16 08:59 11/18/16 07:17 50 MG Folic Acid (Folvite Tab) 1 mg DAILY PO 11/18/16 09:00 12/18/16 08:59 11/21/16 07:21 1 MG Thiamine HCl (Vitamin B-1 Tab) 100 mg QAM PO 11/18/16 09:00 12/18/16 08:59 11/21/16 07:20 100 MG Acetaminophen (Tylenol Tab) 325 mg Q6H PRN PO 11/17/16 23:30 12/17/16 23:29 11/20/16 19:13 325 MG Albumin Human (Albumin 25%) 25 gm Q6 IV 11/19/16 12:00 11/22/16 11:59 11/21/16 05:27 25 GM Rifaximin (Xifaxan Tab) 550 mg BID PO 11/19/16 21:00 12/19/16 20:59 11/21/16 07:21 550 MG Prednisolone 40 mg 40 mg DAILY PO 11/22/16 09:00 12/22/16 08:59 Potassium Phosphate/Sodium Chloride (Potassium Phosphate Inj/Nss 500ml) 510 ml @ 102 mls/hr TODAY@1215 ONCE IV 11/21/16 12:15 11/21/16 17:14 Objective Vital Signs Date Time Temp Pulse Resp B/P Pulse Ox O2 Delivery O2 Flow Rate FiO2 11/21/16 11:44 37.2 97 20 121/72 91 Room Air 11/21/16 08:00 Room Air 11/21/16 08:00 36.9 98 18 97/69 94 11/21/16 04:26 Room Air 11/21/16 03:54 37.1 105 18 107/73 94 Room Air 11/21/16 00:55 Room Air 11/20/16 23:54 38.1 99 17 131/79 93 Room Air 11/20/16 23:11 Room Air 11/20/16 20:30 37.3 95 24 107/84 92 Room Air 11/20/16 16:00 93 Room Air 11/20/16 15:40 36.9 94 22 100/68 93 Room Air Physical Exam General Appearance: + mild distress Neck: supple, no JVD, trachea midline Respiratory/Chest: no respiratory distress, no accessory muscle use, + decreased breath sounds Cardiovascular: regular rate, rhythm, no gallop, no murmur Abdomen: non tender, + abnormal bowel sounds (hypoactive), + distended (mild) Extremities: + swelling (+1 pitting edema on bilateral LE) Neurologic/Psych: + disoriented Skin: + jaundice Laboratory Results Last 24 Hours Test 11/20/16 14:00 11/21/16 09:03 Urine Random Sodium 9 mEq/L White Blood Count 8.61 K/uL Red Blood Count 3.03 M/uL Hemoglobin 11.0 g/dL Hematocrit 30.3 % Mean Corpuscular Volume 100.0 fL Mean Corpuscular Hemoglobin 36.3 pg Mean Corpuscular Hemoglobin Concent 36.3 g/dl RDW Standard Deviation 60.6 fL RDW Coefficient of Variation 16.8 % Platelet Count 49 K/uL Mean Platelet Volume 11.9 fL Prothrombin Time 18.1 SECONDS Prothromb Time International Ratio 1.7 Activated Partial Thromboplast Time 49.9 SECONDS Partial Thromboplastin Ratio 1.9 Sodium Level 133 mmol/L Potassium Level 3.7 mmol/L Chloride Level 98 mmol/L Carbon Dioxide Level 25 mmol/L Anion Gap 10.0 mmol/L Blood Urea Nitrogen 19 mg/dl Creatinine 1.30 mg/dl Est Creatinine Clear Calc Drug Dose 89.9 ml/min Estimated GFR () 72.7 Estimated GFR (Non- 62.7 BUN/Creatinine Ratio 14.7 Random Glucose 110 mg/dl Calcium Level 7.9 mg/dl Phosphorus Level 1.5 mg/dl Magnesium Level 1.8 mg/dl Total Bilirubin 8.7 mg/dl Direct Bilirubin 6.2 mg/dl Aspartate Amino Transf (AST/SGOT) 287 U/L Alanine Aminotransferase (ALT/SGPT) 147 U/L Alkaline Phosphatase 325 U/L Ammonia < 10.0 umol/L Total Protein 5.3 gm/dl Albumin 3.2 gm/dl Chemistry Specimen Hemolysis Assessment and Plan Patient is a 51 year old male w ETOH cirrhosis, admitted for sepsis and likely ETOH hepatitis eval and management. MELD 16. Maddrey's score <32. He had DTs and currently still confused. His Cr lavinia to 2.1 today. LFTs stable. Blood, Urine cultures, Ascitic fluid cx negative. No signs of SBP. CXR and Head CT unremarkable. Rising Cr ? hepatorenal syndrome vs Vancomycin toxicity vs contrast induced kidney injury. U sodium 9. Nephro following. Albumin 25% 25g q6Hr, Midodrine 5mg TID, Octreotide 100mcg q8hr started. Cr down from 2.1 to 1.3 today. UOP picking up. Recalculated MELD 22, Maddreys score 29. Plans - Daily CMP, every other day INR - U/S guided paracentesis; verbal consent to be obtained from pt's POA (Selena Rodriguez, ex ) as pt is confused -> 3L removed on 11/19, no signs of SBP - U/S doppler to r/o PVT; eventually may need to repeat MRCP given alk phos elevation. -> normal u/s doppler - Continue Albumin for one more day; Midodrine/Octreotide DC'd. . - Hold Lactulose; continue Rifaximin 550mg BID. - Repeat AFP; request for Hepatology referral at [place] to eval liver lesion done, appt pending. -> AFP 4. - Maddreys Score <32. Though LFTs, especially Tbili rising. Will start Pentoxifylline 400 TID. Will defer Prednisolone use as he has a low grade temp of 38.1 last night though WBC normal. Would defer to primary team for possible infectious eval ? atelectasis. - Consider psych consult for depression eval, ETOH abuse though pt had repeatedly refused rehab in the past. - Consider repeat head CT for confusion -> no acute findings. - Low Salt diet I saw and evaluated the patient with Ms. Mercado. -- d/c midrodrine / octreotide -- begin Pentoxifylline 400 mg tid for alcoholic hepatitis -- consider evaluation for last evenings fever (per internal medicine).
[2016-11-21] MEDS ORDERED: POTASSIUM PHOSPHATE INJ 30 MMOL in SODIUM CHLORIDE 0.9% 500ML 500 ML IV ONE (12:15)
--- NOTE | 2016-11-21 14:20 | Progress Note ---
Internal Med Progress Note Date of Service: Nov 21, 2016. Provider Documentation: SUBJECTIVE: The patient was seen and examined Remains confused and very lethargic Condition remains critical Discussed with the Family members in room and the POA over the phone OBJECTIVE: Vital Signs-as noted below Exam: General-Generally weak,moderate distress at rest Remains Pleasantly confused Eyes-normal ENT-normal Neck-supple Lungs- breath sound bilaterally Minimal bibasilar crackles Heart-Regular Abdomen-Distended,soft ,mildly tender ,clinically moderate ascites Bowel sound sluggish Extremities-Trace edema bilaterally Neuro-AA Very weak and lethargic Lack of motivation Lab data as noted below. ASSESSMENT & PLAN: Possible sepsis, Tachycardia and elevated white count.UTI? No SBP-s/p paracentesis Lactic acid trended down Was on iv Vanco and Zosyn Follow cultures-negative so far D/C Vancomycin on 11/17-creatinine is going up and negative culture Continue Zosyn for now-will finish 7 days course No source of infection identified Acute Renal Failure Likely contributing factors-Intravascular dehydration,Use of Vancomycin ,Recent use of Contrast or Hepato-renal syndrome Appreciate Nephrology input Getting IV Albumin Renal function is better today Monitor -renal function is improving Electrolytes Imbalance Supplement and recheck Not yet fully normalized Alcoholic Hepatitis Was admitted in September Now with increased LFTs and Ammonia and confusion Was on Prednisone before Appreciate GI input LFTs are getting worse Will need follow up in [place] Continue Protonix 40mg BID, Lactulose 30g daily, Lasix 40mg, Spironolactone 100mg-on hold now Recheck Ammonia level-improved Alcoholism. Last drink ~ 2 days ago 11/15/16 Continue DT prophylaxis A little Drowsy from Ativan Received 2 doses of Ativan last night as I was told Hold Librium Minimal use of Ativan Very noncompliant and wants to continue to use Alcohol Started on Pentoxifylline for Alcoholic Hepatitis Hepatic Mass Question of liver mass which has increased in size from the previous ultrasound in August, but MRI done as outpatient and there was no suggestion of hepatocellular carcinoma, AFP level was somewhat high. Repeat AFP levels and followup with Hepatology at [place] as pe GI. History of stroke, no residual deficits. We are holding aspirin for now. History of depression, on Cymbalta. We will follow his liver function tests. History of chronic systolic heart failure secondary to alcoholic cardiomyopathy , Echocardiogram in September shows ejection fraction of 60-65% and grade 1 diastolic dysfunction. Lasix and Aldactone on hold again due to low BP History of deep vein thrombosis in the right cephalic vein in 2013, not on any anticoagulation. History of supraventricular tachycardia. The patient received adenosine in the Emergency Room. Missed his Lopressor today. Holding Lopressor for sepsis. Restart when sepsis improves. Deep venous thrombosis prophylaxis, SCDs for now. DISPOSITION:Monitor in tele floor. CODE : Level 1. No family members at bedside to discuss Discussed with the Son 11/18/16 in detailed yesterday Will discuss with the POA Discussion with the family members in room and POA over the phone Condition is deteriorating Continue current management till tomorrow Palliative care consult and Hospice care will be introduced from tomorrow. They are all in agreement with that. Vital Signs: Date Time Temp Pulse Resp B/P Pulse Ox O2 Delivery O2 Flow Rate FiO2 11/21/16 12:00 Room Air 11/21/16 11:44 37.2 97 20 121/72 91 Room Air 11/21/16 08:00 Room Air 11/21/16 08:00 36.9 98 18 97/69 94 11/21/16 04:26 Room Air 11/21/16 03:54 37.1 105 18 107/73 94 Room Air 11/21/16 00:55 Room Air 11/20/16 23:54 38.1 99 17 131/79 93 Room Air 11/20/16 23:11 Room Air 11/20/16 20:30 37.3 95 24 107/84 92 Room Air 11/20/16 16:00 93 Room Air 11/20/16 15:40 36.9 94 22 100/68 93 Room Air Lab Results: Results Past 24 Hours Test 11/21/16 09:03 Range/Units White Blood Count 8.61 4.8-10.8 K/uL Red Blood Count 3.03 4.7-6.1 M/uL Hemoglobin 11.0 14.0-18.0 g/dL Hematocrit 30.3 42-52 % Mean Corpuscular Volume 100.0 80-100 fL Mean Corpuscular Hemoglobin 36.3 25-34 pg Mean Corpuscular Hemoglobin Concent 36.3 32-36 g/dl RDW Standard Deviation 60.6 36.4-46.3 fL RDW Coefficient of Variation 16.8 11.5-14.5 % Platelet Count 49 130-400 K/uL Mean Platelet Volume 11.9 7.4-10.4 fL Prothrombin Time 18.1 9.0-12.0 SECONDS Prothromb Time International Ratio 1.7 0.9-1.1 Activated Partial Thromboplast Time 49.9 21.0-31.0 SECONDS Partial Thromboplastin Ratio 1.9 Sodium Level 133 136-145 mmol/L Potassium Level 3.7 3.5-5.1 mmol/L Chloride Level 98 98-107 mmol/L Carbon Dioxide Level 25 21-32 mmol/L Anion Gap 10.0 3-11 mmol/L Blood Urea Nitrogen 19 7-18 mg/dl Creatinine 1.30 0.60-1.40 mg/dl Est Creatinine Clear Calc Drug Dose 89.9 ml/min Estimated GFR () 72.7 Estimated GFR (Non- 62.7 BUN/Creatinine Ratio 14.7 10-20 Random Glucose 110 70-99 mg/dl Calcium Level 7.9 8.5-10.1 mg/dl Phosphorus Level 1.5 2.5-4.9 mg/dl Magnesium Level 1.8 1.8-2.4 mg/dl Total Bilirubin 8.7 0.2-1 mg/dl Direct Bilirubin 6.2 0-0.2 mg/dl Aspartate Amino Transf (AST/SGOT) 287 15-37 U/L Alanine Aminotransferase (ALT/SGPT) 147 12-78 U/L Alkaline Phosphatase 325 45-117 U/L Ammonia < 10.0 11-32 umol/L Total Protein 5.3 6.4-8.2 gm/dl Albumin 3.2 3.4-5.0 gm/dl Chemistry Specimen Hemolysis
[2016-11-21 15:21] VITALS: BP 98/65; PULSE 59; TEMP 36.6; O2SAT 95
[2016-11-21] MEDS: PENTOXIFYLLINE 400MG EXT REL TAB PO SCH ×2 (16:48→21:40)
[2016-11-21 19:13] VITALS: BP 103/71; PULSE 87; TEMP 36.3; O2SAT 94
[2016-11-21] MEDS: AMITRIPTYLINE HCL 10 MG TAB PO SCH (21:40)
[2016-11-21 23:54] VITALS: BP 114/72; PULSE 96; TEMP 36.5; O2SAT 95
[2016-11-22] MEDS: ALBUMIN HUMAN 25% 12.5 GM/50 ML VIAL IV SCH ×2 (00:43→05:58)
[2016-11-22 04:00] VITALS: BP 129/84; PULSE 98; TEMP 37.1; O2SAT 91
[2016-11-22 07:48] VITALS: BP 128/85; PULSE 93; TEMP 36.7; O2SAT 93
[2016-11-22] MEDS ORDERED: prednisoLONE SYRUP 15 MG/5 ML UDP PO SCH (09:00)
[2016-11-22] MEDS: PENTOXIFYLLINE 400MG EXT REL TAB PO SCH ×3 (09:09→21:53)
[2016-11-22] MEDS: DULOXETINE (CYMBALTA) 30 MG CAP PO SCH (09:09)
[2016-11-22] MEDS: CHLORDIAZEPOXIDE 25 MG CAP PO SCH ×2 (09:09→14:47)
[2016-11-22] MEDS: THIAMINE HCL 100 MG TAB PO SCH (09:09)
[2016-11-22] MEDS: RIFAXIMIN TAB 550 MG TAB PO SCH ×2 (09:09→21:54)
[2016-11-22] MEDS: MAGNESIUM CHLORIDE 64MG DELAYED REL TAB PO SCH ×2 (09:09→21:54)
[2016-11-22] MEDS: TAMSULOSIN HCL 0.4 MG CAP PO SCH (09:09)
[2016-11-22] MEDS: METOPROLOL SUCC 50MG EXT REL TAB PO SCH (09:10)
[2016-11-22] MEDS: CALCIUM CARBONATE 500 MG CHEWABLE PO SCH ×2 (09:10→21:52)
[2016-11-22] MEDS: MULTIVITAMIN TAB PO SCH (09:10)
[2016-11-22] MEDS: CEROVITE ADV FORMULA TAB PO SCH (09:10)
[2016-11-22] MEDS: PANTOprazole SOD 40 MG TAB PO SCH ×2 (09:10→21:54)
[2016-11-22 10:17] LABS: HEMATOCRIT 29.6 % (42-52); MEAN CORPUSCULAR HEMOGLOBIN 35.8 pg (25-34); MEAN CORPUSCULAR HGB CONC 36.1 g/dl (32-36); MEAN PLATELET VOLUME 11.1 fL (7.4-10.4); PLATELET COUNT 77 K/uL (130-400); RED BLOOD COUNT 2.99 M/uL (4.7-6.1); WHITE BLOOD COUNT 9.67 K/uL (4.8-10.8)
[2016-11-22 11:10] LABS: BUN/CREATININE RATIO 12.4 (10-20); CALCIUM 7.8 mg/dl (8.5-10.1); CREATININE 0.91 mg/dl (0.60-1.40); MAGNESIUM 1.6 mg/dl (1.8-2.4); POTASSIUM 3.7 mmol/L (3.5-5.1)
--- NOTE | 2016-11-22 11:14 | Gastroenterology Progress Note ---
Progress Note Date of Service: Nov 22, 2016 Subjective Pt evaluation today including: conversation w/ patient, physical exam, chart review, review of inpatient medication list Pt appear to be more alert, able to answer simple questions. Though RN report he goes in/out of confusion. Review of Systems Constitutional: No fever Respiratory: No cough, No shortness of breath Cardiac: No chest pain Abdomen: + pain (discomfort), No nausea, No vomiting Skin: + rash (face) Medications Current Inpatient Medications Medications (Trade) Dose Ordered Sig/Gualberto Route Start Time Stop Time Status Last Admin Dose Admin Al Hydrox/Mg Hydrox/Simethicone (Maalox Max Susp) 15 ml Q4H PRN PO 11/15/16 18:00 12/15/16 17:59 Ondansetron HCl (Zofran Inj) 4 mg Q6H PRN IV 11/15/16 18:00 12/15/16 17:59 11/16/16 06:10 4 MG Nitroglycerin (Nitrostat Tab) 0.4 mg UD PRN SL 11/15/16 18:00 12/15/16 17:59 Calcium Carbonate (Tums Chew Tab) 1,500 mg BID PO 11/15/16 21:00 12/15/16 20:59 11/22/16 09:10 1,500 MG Duloxetine HCl (Cymbalta Cap) 30 mg DAILY PO 11/16/16 09:00 12/16/16 08:59 11/22/16 09:09 30 MG Albuterol/ Ipratropium (Combivent Respimat Inh) 1 puffs QID PRN INH 11/15/16 18:00 12/15/16 17:59 Magnesium Chloride (Slow-Mag Tab) 64 mg BID PO 11/15/16 21:00 12/15/16 20:59 11/22/16 09:09 64 MG Multivitamins (Multivitamin Tab) 1 tab DAILY PO 11/16/16 09:00 12/16/16 08:59 11/22/16 09:10 1 TAB Amitriptyline HCl (Elavil Tab) 10 mg HS PO 11/15/16 21:00 12/15/16 20:59 11/21/16 21:40 10 MG Tamsulosin HCl (Flomax Cap) 0.4 mg DAILY PO 11/16/16 09:00 12/16/16 08:59 11/22/16 09:09 0.4 MG Chlordiazepoxide (Librium Cap) 50 mg TID PO 11/15/16 21:00 11/29/16 20:59 11/22/16 09:09 50 MG Multivitamins/ Minerals (Multivitamin W/ Minerals Tab) 1 tab QAM PO 11/16/16 09:00 12/16/16 08:59 11/22/16 09:10 1 TAB Metoprolol Tartrate (Lopressor Iv) 2.5 mg Q6H PRN IV 11/15/16 20:00 12/15/16 19:59 Future hold 11/17/16 21:09 2.5 MG Lorazepam (Ativan Inj) 2 mg Q1HWA PRN IV 11/16/16 10:00 12/16/16 09:59 11/17/16 23:45 2 MG Pantoprazole Sodium (Protonix Tab) 40 mg BID PO 11/16/16 21:00 12/16/16 20:59 11/22/16 09:10 40 MG Metoprolol Succinate (Toprol Xl Tab) 50 mg QAM PO 11/18/16 09:00 12/16/16 08:59 11/22/16 09:10 50 MG Folic Acid (Folvite Tab) 1 mg DAILY PO 11/18/16 09:00 12/18/16 08:59 11/22/16 09:09 1 MG Thiamine HCl (Vitamin B-1 Tab) 100 mg QAM PO 11/18/16 09:00 12/18/16 08:59 11/22/16 09:09 100 MG Acetaminophen (Tylenol Tab) 325 mg Q6H PRN PO 11/17/16 23:30 12/17/16 23:29 11/20/16 19:13 325 MG Albumin Human (Albumin 25%) 25 gm Q6 IV 11/19/16 12:00 11/22/16 11:59 11/22/16 05:58 25 GM Rifaximin (Xifaxan Tab) 550 mg BID PO 11/19/16 21:00 12/19/16 20:59 11/22/16 09:09 550 MG Pentoxifylline (Trental Tab) 400 mg TID PO 11/21/16 16:00 12/21/16 15:59 11/22/16 09:09 400 MG Objective Vital Signs Date Time Temp Pulse Resp B/P Pulse Ox O2 Delivery O2 Flow Rate FiO2 11/22/16 08:00 Room Air 11/22/16 07:48 36.7 93 20 128/85 93 Room Air 11/22/16 04:18 Room Air 11/22/16 04:00 37.1 98 20 129/84 91 Room Air 11/22/16 00:12 Room Air 11/21/16 23:54 36.5 96 20 114/72 95 Room Air 11/21/16 20:55 Room Air 11/21/16 19:13 36.3 87 20 103/71 94 Room Air 11/21/16 16:00 Room Air 11/21/16 15:21 36.6 59 20 98/65 95 Room Air 11/21/16 12:00 Room Air 11/21/16 11:44 37.2 97 20 121/72 91 Room Air Physical Exam General Appearance: + mild distress, + obese Neck: supple, no JVD, trachea midline Respiratory/Chest: + decreased breath sounds, + crackles Cardiovascular: regular rate, rhythm, no gallop, no murmur Abdomen: normal bowel sounds, non tender, + distended (mild) Extremities: + swelling (R>L) Neurologic/Psych: alert, + depressed affect, + disoriented (mostly oriented to self) Skin: + jaundice Laboratory Results Last 24 Hours Test 11/22/16 09:55 White Blood Count 9.67 K/uL Red Blood Count 2.99 M/uL Hemoglobin 10.7 g/dL Hematocrit 29.6 % Mean Corpuscular Volume 99.0 fL Mean Corpuscular Hemoglobin 35.8 pg Mean Corpuscular Hemoglobin Concent 36.1 g/dl RDW Standard Deviation 60.7 fL RDW Coefficient of Variation 16.8 % Platelet Count 77 K/uL Mean Platelet Volume 11.1 fL Assessment and Plan Patient is a 51 year old male w ETOH cirrhosis, admitted for sepsis and likely ETOH hepatitis eval and management. MELD 16. Maddrey's score <32. He had DTs and currently still confused. His Cr lavinia to 2.1 today. LFTs stable. Blood, Urine cultures, Ascitic fluid cx negative. No signs of SBP. CXR and Head CT unremarkable. Rising Cr ? hepatorenal syndrome vs Vancomycin toxicity vs contrast induced kidney injury. U sodium 9. Nephro following. Albumin 25% 25g q6Hr, Midodrine 5mg TID, Octreotide 100mcg q8hr started. Cr down from 2.1 to 1.3 today. UOP picking up. Recalculated MELD 22, Maddreys score 29. Plans - Daily CMP, every other day INR. CMP today pending. - U/S guided paracentesis; verbal consent to be obtained from pt's POA (Selena Rodriguez, ex ) as pt is confused -> 3L removed on 11/19, no signs of SBP. Will reimage to look for ascites accumulation again today. - U/S doppler to r/o PVT; eventually may need to repeat MRCP given alk phos elevation. -> normal u/s doppler - DC Albumin IV; depending on CMP results today may consider restarting Lasix/ Aldactone at half dose. - Hold Lactulose; continue Rifaximin 550mg BID. - Repeat AFP; request for Hepatology referral at [facility] to eval liver lesion done, appt pending. -> AFP 4. - Maddreys Score <32. Though LFTs, especially Tbili rising. Will start Pentoxifylline 400 TID. Will defer Prednisolone use as he has a low grade temp of 38.1 last night though WBC normal. Would defer to primary team for possible infectious eval ? atelectasis. - Consider psych consult for depression eval, ETOH abuse though pt had repeatedly refused rehab in the past. - Consider repeat head CT for confusion -> no acute findings. - Low Salt diet I saw and evaluated the patient with Vickie. I had a discussion with the patient and his family members about the precarious nature of his medical problems. The patient is severely ill due to his long-standing alcoholism and lack of abstinance. No changes in care planned for today.
[2016-11-22 11:17] LABS: PHOSPHORUS 1.3 mg/dl (2.5-4.9)
--- NOTE | 2016-11-22 11:23 | PROGRESS NOTE ---
DATE: 11/22/2016 SUBJECTIVE: The patient is a 51-year-old male with alcoholic cirrhosis who was admitted with acute worsening of kidney function in the setting of significantly low blood pressure and decreased urine output. He still appears sick. He is not alert. I could not get any history from the patient. He would open his eyes but then go back to sleep right away. As per the girlfriend, he seemed to have more rash all over his body, which seems somewhat new. His urine output has picked up remarkably well. Yesterday in a 24-hour time period, he made 2450 mL of urine. His laboratory results are also getting better, both creatinine and sodium. PHYSICAL EXAMINATION: GENERAL: Awake but not alert and very somnolent and lethargic. He is obese. EYES: Icterus positive. NECK: Supple. SKIN: He does have diffuse erythematous rash over his face as well as his upper and lower extremity of unclear etiology. HEART: Regular rate and rhythm. ABDOMEN: Distended but soft, nontender. EXTREMITIES: 2+ edema in the legs. LABORATORY TESTS: Blood work from this morning is still pending at the time of my examination; however, his overall labs have been getting better. Sodium yesterday was 133 and creatinine was down to 1.3, phosphorus was 1.5 yesterday. Again, the labs from this morning are still pending. ASSESSMENT AND PLAN: 1. Acute kidney injury, oliguric renal failure at the time of admission which has since got better. Now both labs as well as urine output are getting better. Etiology of acute kidney injury was pure prerenal versus acute tubular necrosis versus hepatorenal. In any case, labs are getting better and he is making more urine. 2. Hyponatremia. Last checked sodium was 133. At the time of admission, it was as low as 123 but in the last 5-6 days, it has steadily gone up. No further workup is needed for the acute kidney injury as well as hyponatremia. If the phosphorus does come back as low, he would need some K-Phos replacement. Continue to do daily labs. [facility]
[2016-11-22 11:57] VITALS: BP 106/76; PULSE 90; TEMP 36.6; O2SAT 93
[2016-11-22] MEDS ORDERED: POTASSIUM PHOS 3 MMOL/1 ML INFUSION IV STA (12:03)
[2016-11-22] MEDS ORDERED: POTASSIUM PHOSPHATE INJ 30 MMOL in SODIUM CHLORIDE 0.9% 500ML 500 ML IV ONE (12:30)
--- NOTE | 2016-11-22 13:11 | DIAGNOSTIC IMAGING REPORT ---
ULTRASOUND ASCITES CHECK CLINICAL HISTORY: Cirrhosis and ascites. COMPARISON STUDY: Abdominal CT dated 11/15/2016. FINDINGS: Real-time Daniel scale sonography of all 4 quadrants of the abdomen was performed to assess for abdominal ascites. There is a small volume of abdominopelvic ascites. The largest pocket is identified in the right lower quadrant. The liver is cirrhotic in morphology and heterogeneous in echotexture. The spleen is enlarged. IMPRESSION: 1. There is a small volume of abdominopelvic ascites. 2. Cirrhotic liver morphology and splenomegaly. Electronically signed by: Kyle Nuñez M.D. 11/22/2016 1:10 PM Dictated Date/Time: 11/22/2016 1:08 PM
--- NOTE | 2016-11-22 13:28 | DIAGNOSTIC IMAGING REPORT ---
TWO VIEW CHEST CLINICAL HISTORY: Dyspnea. FINDINGS: AP and lateral chest radiographs are compared to study dated 11/15/2016. Correlation is made with chest CT dated 08/20/2014. The examination is degraded by large body habitus. The heart is mildly enlarged. The pulmonary vasculature is noncongested. There are low lung volumes with bibasilar atelectasis. No airspace consolidation is seen typical for pneumonia and there is no pleural effusion. No pneumothorax is seen. The skeletal structures appear osteopenic. The bony thorax appears intact. IMPRESSION: 1. Mild cardiomegaly without radiographic evidence of congestive failure. 2. Low lung volumes with bibasilar atelectasis. Electronically signed by: Kyle Nuñez M.D. 11/22/2016 1:26 PM Dictated Date/Time: 11/22/2016 1:24 PM
[2016-11-22] MEDS ORDERED: MAGNESIUM SULFATE 1GM / D5W 1 GM in PREMIXED IN D5W 100 ML IV ONE (13:30)
[2016-11-22 14:35] VITALS: BP 106/76; PULSE 90; TEMP 36.6; O2SAT 93
[2016-11-22 15:08] VITALS: BP 120/81; PULSE 86; TEMP 36.3; O2SAT 94
--- NOTE | 2016-11-22 18:38 | Progress Note ---
Internal Med Progress Note Date of Service: Nov 22, 2016. Provider Documentation: SUBJECTIVE: The patient was seen and examined Remains confused and very lethargic A little better today Lacks motivation No agitation OBJECTIVE: Vital Signs-as noted below Exam: General-Generally weak,moderate distress at rest Remains Pleasantly confused Eyes-normal ENT-normal Neck-supple Lungs- breath sound bilaterally Minimal bibasilar crackles Heart-Regular Abdomen-Distended,soft ,mildly tender ,clinically moderate ascites Bowel sound sluggish Extremities-Trace edema bilaterally Neuro-AA Very weak and lethargic Lack of motivation Lab data as noted below. ASSESSMENT & PLAN: Alcoholic Hepatitis with Hepatic Failure Was admitted in September Now with increased LFTs and Ammonia and confusion Was on Prednisone before Appreciate GI input LFTs are getting worse Will need follow up in [place] if improves Supportive medications are on Hold Continue Protonix 40mg BID, Lactulose 30g daily, Lasix 40mg, Spironolactone 100mg when appropriate Recheck Ammonia level-improved LFTs are Fluctuating with fluctuating mental status Alcoholism.-Keeps on drinking Last drink ~ 2 days ago 11/15/16 Continue DT prophylaxis A little Drowsy from Ativan Received 2 doses of Ativan last night as I was told Very noncompliant and wants to continue to use Alcohol Librium discontinued due to confusion and drowsiness Ativan now only PRN Started on Pentoxifylline for Alcoholic Hepatitis Depression and Lacks motivation May need psychiatric evaluation if improves Electrolytes Imbalance Supplement and recheck Possible sepsis- ruled out Tachycardia and elevated white count.UTI? No SBP-s/p paracentesis Lactic acid trended down Was on iv Vanco and Zosyn Follow cultures-negative so far D/C Vancomycin on 11/17-creatinine is going up and negative culture Continue Zosyn for now-will finish 7 days course No source of infection identified Antibiotic Discontinued Acute Renal Failure Likely contributing factors-Intravascular dehydration,Use of Vancomycin ,Recent use of Contrast or Hepato-renal syndrome Appreciate Nephrology input Getting IV Albumin Renal function is better today Monitor -renal function is improving Electrolytes Imbalance Supplement and recheck Not yet fully normalized Hepatic Mass Question of liver mass which has increased in size from the previous ultrasound in August, but MRI done as outpatient and there was no suggestion of hepatocellular carcinoma, AFP level was somewhat high. Repeat AFP levels and followup with Hepatology at [place] as pe GI. History of stroke, no residual deficits. We are holding aspirin for now. History of depression, on Cymbalta. We will follow his liver function tests. History of chronic systolic heart failure secondary to alcoholic cardiomyopathy , Echocardiogram in September shows ejection fraction of 60-65% and grade 1 diastolic dysfunction. Lasix and Aldactone on hold again due to low BP History of deep vein thrombosis in the right cephalic vein in 2013, not on any anticoagulation. History of supraventricular tachycardia. The patient received adenosine in the Emergency Room. Missed his Lopressor today. Holding Lopressor for sepsis. Restart when sepsis improves. Deep venous thrombosis prophylaxis, SCDs for now. DISPOSITION:Monitor in tele floor. CODE : Level 1. No family members at bedside to discuss Discussed with the Son 11/18/16 in detailed yesterday Will discuss with the POA Discussion with the family members in room and POA over the phone Condition is deteriorating Long discussion with the Family members and the POA Continue supportive care DNR Palliative care consult and Hospice care down the line . PT/OT evaluation Vital Signs: Date Time Temp Pulse Resp B/P Pulse Ox O2 Delivery O2 Flow Rate FiO2 11/22/16 15:25 Room Air 11/22/16 15:08 36.3 86 22 120/81 94 Room Air 11/22/16 14:35 36.6 90 24 93 2.0 11/22/16 12:00 Room Air 11/22/16 11:57 36.6 90 24 106/76 93 Room Air 11/22/16 08:00 Room Air 11/22/16 07:48 36.7 93 20 128/85 93 Room Air 11/22/16 04:18 Room Air 11/22/16 04:00 37.1 98 20 129/84 91 Room Air 11/22/16 00:12 Room Air 11/21/16 23:54 36.5 96 20 114/72 95 Room Air 11/21/16 20:55 Room Air 11/21/16 19:13 36.3 87 20 103/71 94 Room Air Lab Results: Results Past 24 Hours Test 11/22/16 09:55 Range/Units White Blood Count 9.67 4.8-10.8 K/uL Red Blood Count 2.99 4.7-6.1 M/uL Hemoglobin 10.7 14.0-18.0 g/dL Hematocrit 29.6 42-52 % Mean Corpuscular Volume 99.0 80-100 fL Mean Corpuscular Hemoglobin 35.8 25-34 pg Mean Corpuscular Hemoglobin Concent 36.1 32-36 g/dl RDW Standard Deviation 60.7 36.4-46.3 fL RDW Coefficient of Variation 16.8 11.5-14.5 % Platelet Count 77 130-400 K/uL Mean Platelet Volume 11.1 7.4-10.4 fL Sodium Level 137 136-145 mmol/L Potassium Level 3.7 3.5-5.1 mmol/L Chloride Level 102 98-107 mmol/L Carbon Dioxide Level 24 21-32 mmol/L Anion Gap 11.0 3-11 mmol/L Blood Urea Nitrogen 11 7-18 mg/dl Creatinine 0.91 0.60-1.40 mg/dl Est Creatinine Clear Calc Drug Dose 128.1 ml/min Estimated GFR () 111.9 Estimated GFR (Non- 96.6 BUN/Creatinine Ratio 12.4 10-20 Random Glucose 102 70-99 mg/dl Calcium Level 7.8 8.5-10.1 mg/dl Phosphorus Level 1.3 2.5-4.9 mg/dl Magnesium Level 1.6 1.8-2.4 mg/dl Total Bilirubin 9.0 0.2-1 mg/dl Direct Bilirubin 6.2 0-0.2 mg/dl Aspartate Amino Transf (AST/SGOT) 214 15-37 U/L Alanine Aminotransferase (ALT/SGPT) 146 12-78 U/L Alkaline Phosphatase 288 45-117 U/L Total Protein 5.2 6.4-8.2 gm/dl Albumin 3.4 3.4-5.0 gm/dl
[2016-11-22 19:50] VITALS: O2SAT 94
[2016-11-22] MEDS: AMITRIPTYLINE HCL 10 MG TAB PO SCH (21:53)
[2016-11-23] VITALS: O2SAT 95
[2016-11-23 00:25] VITALS: BP 112/80; PULSE 84; TEMP 36.4; O2SAT 95
[2016-11-23 07:00] LABS: BUN/CREATININE RATIO 11.8 (10-20); CALCIUM 8.2 mg/dl (8.5-10.1); CREATININE 0.79 mg/dl (0.60-1.40); MAGNESIUM 1.8 mg/dl (1.8-2.4); PHOSPHORUS 2.1 mg/dl (2.5-4.9); POTASSIUM 4.2 mmol/L (3.5-5.1)
[2016-11-23] MEDS: MULTIVITAMIN TAB PO SCH (07:40)
[2016-11-23] MEDS: MAGNESIUM CHLORIDE 64MG DELAYED REL TAB PO SCH ×2 (07:40→20:06)
[2016-11-23] MEDS: TAMSULOSIN HCL 0.4 MG CAP PO SCH (07:41)
[2016-11-23] MEDS: PENTOXIFYLLINE 400MG EXT REL TAB PO SCH ×3 (07:41→20:07)
[2016-11-23] MEDS: DULOXETINE (CYMBALTA) 30 MG CAP PO SCH (07:41)
[2016-11-23] MEDS: RIFAXIMIN TAB 550 MG TAB PO SCH ×2 (07:41→20:06)
[2016-11-23] MEDS: THIAMINE HCL 100 MG TAB PO SCH (07:41)
[2016-11-23] MEDS: PANTOprazole SOD 40 MG TAB PO SCH ×2 (07:41→20:08)
[2016-11-23] MEDS: METOPROLOL SUCC 50MG EXT REL TAB PO SCH (07:41)
[2016-11-23] MEDS: CEROVITE ADV FORMULA TAB PO SCH (07:42)
[2016-11-23] MEDS: CALCIUM CARBONATE 500 MG CHEWABLE PO SCH ×2 (07:42→20:00)
[2016-11-23 07:43] VITALS: BP 111/79; PULSE 84; TEMP 36.4; O2SAT 94
[2016-11-23] MEDS: ACETAMINOPHEN 325 MG TAB PO PRN ×2 (08:57→20:05)
[2016-11-23 09:52] LABS: INR 1.6 (0.9-1.1); PROTHROMBIN TIME (PATIENT) 17.1 SECONDS (9.0-12.0)
--- NOTE | 2016-11-23 10:55 | Gastroenterology Progress Note ---
Progress Note Date of Service: Nov 23, 2016 Subjective Pt evaluation today including: conversation w/ patient, physical exam, chart review, lab review, review of inpatient medication list Pt c/o pain on skin, joints. Denies abd pain. He's oriented to self only, but aware he's in the hospital. Review of Systems Constitutional: No chills, No fever Respiratory: No cough, No shortness of breath Cardiac: No chest pain Musculoskeletal: + joint pain ("all over pain on skin, joints" per pt's report) Skin: + jaundice Medications Current Inpatient Medications Medications (Trade) Dose Ordered Sig/Gualberto Route Start Time Stop Time Status Last Admin Dose Admin Al Hydrox/Mg Hydrox/Simethicone (Maalox Max Susp) 15 ml Q4H PRN PO 11/15/16 18:00 12/15/16 17:59 Ondansetron HCl (Zofran Inj) 4 mg Q6H PRN IV 11/15/16 18:00 12/15/16 17:59 11/16/16 06:10 4 MG Nitroglycerin (Nitrostat Tab) 0.4 mg UD PRN SL 11/15/16 18:00 12/15/16 17:59 Calcium Carbonate (Tums Chew Tab) 1,500 mg BID PO 11/15/16 21:00 12/15/16 20:59 11/23/16 07:42 1,500 MG Duloxetine HCl (Cymbalta Cap) 30 mg DAILY PO 11/16/16 09:00 12/16/16 08:59 11/23/16 07:41 30 MG Albuterol/ Ipratropium (Combivent Respimat Inh) 1 puffs QID PRN INH 11/15/16 18:00 12/15/16 17:59 Magnesium Chloride (Slow-Mag Tab) 64 mg BID PO 11/15/16 21:00 12/15/16 20:59 11/23/16 07:40 64 MG Multivitamins (Multivitamin Tab) 1 tab DAILY PO 11/16/16 09:00 12/16/16 08:59 11/23/16 07:40 1 TAB Amitriptyline HCl (Elavil Tab) 10 mg HS PO 11/15/16 21:00 12/15/16 20:59 11/22/16 21:53 10 MG Tamsulosin HCl (Flomax Cap) 0.4 mg DAILY PO 11/16/16 09:00 12/16/16 08:59 11/23/16 07:41 0.4 MG Multivitamins/ Minerals (Multivitamin W/ Minerals Tab) 1 tab QAM PO 11/16/16 09:00 12/16/16 08:59 11/23/16 07:42 1 TAB Lorazepam (Ativan Inj) 2 mg Q1HWA PRN IV 11/16/16 10:00 12/16/16 09:59 11/17/16 23:45 2 MG Pantoprazole Sodium (Protonix Tab) 40 mg BID PO 11/16/16 21:00 12/16/16 20:59 11/23/16 07:41 40 MG Metoprolol Succinate (Toprol Xl Tab) 50 mg QAM PO 11/18/16 09:00 12/16/16 08:59 11/23/16 07:41 50 MG Folic Acid (Folvite Tab) 1 mg DAILY PO 11/18/16 09:00 12/18/16 08:59 11/23/16 07:41 1 MG Thiamine HCl (Vitamin B-1 Tab) 100 mg QAM PO 11/18/16 09:00 12/18/16 08:59 11/23/16 07:41 100 MG Acetaminophen (Tylenol Tab) 325 mg Q6H PRN PO 11/17/16 23:30 12/17/16 23:29 11/23/16 08:57 325 MG Rifaximin (Xifaxan Tab) 550 mg BID PO 11/19/16 21:00 12/19/16 20:59 11/23/16 07:41 550 MG Pentoxifylline (Trental Tab) 400 mg TID PO 11/21/16 16:00 12/21/16 15:59 11/23/16 07:41 400 MG Objective Vital Signs Date Time Temp Pulse Resp B/P Pulse Ox O2 Delivery O2 Flow Rate FiO2 11/23/16 08:00 Room Air 11/23/16 07:43 36.4 84 20 111/79 94 Room Air 11/23/16 00:25 36.4 84 20 112/80 95 Room Air 11/23/16 00:00 95 Room Air 11/22/16 19:50 94 Room Air 11/22/16 15:25 Room Air 11/22/16 15:08 36.3 86 22 120/81 94 Room Air 11/22/16 14:35 36.6 90 24 93 2.0 11/22/16 12:00 Room Air 11/22/16 11:57 36.6 90 24 106/76 93 Room Air Physical Exam General Appearance: + mild distress, + obese Neck: supple, no JVD, trachea midline Respiratory/Chest: + decreased breath sounds, + crackles (fine scattered crackles) Cardiovascular: regular rate, rhythm, no gallop, no murmur Abdomen: non tender, soft, + abnormal bowel sounds (hypoactive) Extremities: + swelling (bilateral LE w +1 pitting edema) Neurologic/Psych: + depressed affect, + disoriented Skin: no rash, + jaundice Laboratory Results Last 24 Hours Test 11/23/16 05:10 11/23/16 09:15 Sodium Level 139 mmol/L Potassium Level 4.2 mmol/L Chloride Level 105 mmol/L Carbon Dioxide Level 24 mmol/L Anion Gap 10.0 mmol/L Blood Urea Nitrogen 9 mg/dl Creatinine 0.79 mg/dl Est Creatinine Clear Calc Drug Dose 147.6 ml/min Estimated GFR () 119.7 Estimated GFR (Non- 103.2 BUN/Creatinine Ratio 11.8 Random Glucose 78 mg/dl Calcium Level 8.2 mg/dl Phosphorus Level 2.1 mg/dl Magnesium Level 1.8 mg/dl Prothrombin Time 17.1 SECONDS Prothromb Time International Ratio 1.6 Assessment and Plan Patient is a 51 year old male w ETOH cirrhosis, admitted for sepsis and likely ETOH hepatitis eval and management. MELD 16. Maddrey's score <32. He had DTs and currently still confused. His Cr lavinia to 2.1 today. LFTs stable. Blood, Urine cultures, Ascitic fluid cx negative. No signs of SBP. CXR and Head CT unremarkable. Rising Cr ? hepatorenal syndrome vs Vancomycin toxicity vs contrast induced kidney injury. U sodium 9. Nephro following. Albumin 25% 25g q6Hr, Midodrine 5mg TID, Octreotide 100mcg q8hr started. Cr down from 2.1 to 0.79 today. UOP picking up. Recalculated MELD 20, Maddreys score 29. Plans - Daily CMP, every other day INR. LFTs pending today - U/S guided paracentesis; verbal consent to be obtained from pt's POA (Selena Rodriguez, ex ) as pt is confused -> 3L removed on 11/19, no signs of SBP. Repeat u/s on 11/22 showed small amt of ascites in abd - U/S doppler to r/o PVT; eventually may need to repeat MRCP given alk phos elevation. -> normal u/s doppler - Hold diuretics for now. - Hold Lactulose; continue Rifaximin 550mg BID. - Repeat AFP; request for Hepatology referral at [facility] to eval liver lesion done, appt pending. -> AFP 4. - Maddreys Score <32. Though LFTs, especially Tbili rising. Continue Pentoxifylline 400mg TID. - Consider psych consult for depression eval, ETOH abuse though pt had repeatedly refused rehab in the past. - Consider repeat head CT for confusion -> no acute findings. - Low Salt diet I saw and evaluated the patient with Ms. Johnston and agree with the present plan. He has a long history of alcohol abuse and has been unable to abstain despite multiple admissions. He does seem somewhat improved today and seems to be able to answer simple questions. -- Continue Pentoxyfylline tid -- continue rifaximin bid -- The patient may take several weeks or months to recover from this admiision for alocholic hepatitis.
[2016-11-23 11:54] VITALS: BP 104/71; PULSE 82; TEMP 36.5; O2SAT 93
[2016-11-23 15:15] VITALS: BP 110/76; PULSE 82; TEMP 36; O2SAT 97
[2016-11-23 16:12] VITALS: O2SAT 94
[2016-11-23] MEDS: POT PHOSPHATE MONOBASIC W/ SOD TAB PO SCH ×2 (17:50→20:07)
--- NOTE | 2016-11-23 18:46 | Progress Note ---
Internal Med Progress Note Date of Service: Nov 23, 2016. Provider Documentation: SUBJECTIVE: opens eyes on calling but not answering afebrile hemodynamics stable OBJECTIVE: Vital Signs-as noted below Exam: General-drowsy Neck-no neck masses Lungs-cta b/l no wheezing or crackles Heart-s1 and s2 heard regular rate and rhythm no murmurs Abdomen-soft bowel sounds present non tender no distension Extremities-no erythema Neuro-drowsy moves extremities Lab data as noted below. ASSESSMENT & PLAN: : This is a 51-year-old with chronic alcoholism, who was sent in because of abnormal laboratories and possible sepsis which was ruled out. developed alcohol hepatitis. Alcoholic Hepatitis with Hepatic Failure Was admitted in September with same issue Now with increased LFTs and confusion Was on Prednisone before Appreciate GI input LFTs are getting worse Plan for follow up in [place] if improves on Trent[place] appreciate Gi inputs Alcoholism.-Keeps on drinking Last drink 11/15/16 Continue DT prophylaxis received Librium and iv Ativan currently off of Librium. Started on Pentoxifylline for Alcoholic Hepatitis Depression and Lacks motivation May need psychiatric evaluation if improves Electrolytes Imbalance Supplement and recheck ARF from abx? sepsis?dehydration resolved. Possible sepsis, ruled out tachycardia and elevated white count.UTI? ascitic fluid analysis no elevated wbc. was on iv vanco and Zosyn will f/u cx BP stable abx stopped. . Question of liver mass which has increased in size from the previous ultrasound in August, but MRI done as outpatient and there was no suggestion of hepatocellular carcinoma, but his AFP level was somewhat high. Repeat AFP levels and followup with Hepatology at [place] as pe GI. . History of thrombocytopenia .77 today. We will follow laboratories. History of generalized weakness, pain and fall secondary to his alcoholism. Physical and occupational therapies when patient is more stable. History of stroke, no residual deficits. We are holding aspirin for now. History of depression, on Cymbalta. We will follow his liver function tests. History of chronic systolic heart failure secondary to alcoholic cardiomyopathy, we will be holding the diuretics for now for sepsis. We will monitor for any volume overload. Echocardiogram done on last admission in September shows ejection fraction of 60-65% and grade 1 diastolic dysfunction. Lasix and Aldactone on hold. will monitor. History of deep vein thrombosis in the right cephalic vein in 2013, not on any anticoagulation. History of supraventricular tachycardia. The patient received adenosine in the Emergency Room. Missed his Lopressor today. Holding Lopressor for sepsis. Restarted Lopressor. Hyponatremia; sodium is 123, mostly secondary to his alcoholism and it improved with normal fluids on last admission. We will follow laboratories closely to prevent overcorrection. If not improving, we will consult nephrology. Holding diuretics. resolved Deep venous thrombosis prophylaxis, SCDs for now. DISPOSITION:Monitor in tele floor. Level 1. Full code, as per discussion with the patient only on the chance of recovery. Closely monitor on tele floor. Will d/w with patient when more stable about further care as non compliant with the advise and preparing for his . Code status: at admission patient wanted to be full code if there is chance of recovery only. Vital Signs: Date Time Temp Pulse Resp B/P Pulse Ox O2 Delivery O2 Flow Rate FiO2 11/23/16 16:12 94 Room Air 11/23/16 15:15 36.0 82 20 110/76 97 Room Air 11/23/16 11:54 36.5 82 24 104/71 93 Room Air 11/23/16 08:00 Room Air 11/23/16 07:43 36.4 84 20 111/79 94 Room Air 11/23/16 00:25 36.4 84 20 112/80 95 Room Air 11/23/16 00:00 95 Room Air 11/22/16 19:50 94 Room Air Lab Results: Results Past 24 Hours Test 11/23/16 05:10 11/23/16 09:15 Range/Units Sodium Level 139 136-145 mmol/L Potassium Level 4.2 3.5-5.1 mmol/L Chloride Level 105 98-107 mmol/L Carbon Dioxide Level 24 21-32 mmol/L Anion Gap 10.0 3-11 mmol/L Blood Urea Nitrogen 9 7-18 mg/dl Creatinine 0.79 0.60-1.40 mg/dl Est Creatinine Clear Calc Drug Dose 147.6 ml/min Estimated GFR () 119.7 Estimated GFR (Non- 103.2 BUN/Creatinine Ratio 11.8 10-20 Random Glucose 78 70-99 mg/dl Calcium Level 8.2 8.5-10.1 mg/dl Phosphorus Level 2.1 2.5-4.9 mg/dl Magnesium Level 1.8 1.8-2.4 mg/dl Total Bilirubin 9.1 0.2-1 mg/dl Direct Bilirubin 6.4 0-0.2 mg/dl Aspartate Amino Transf (AST/SGOT) 147 15-37 U/L Alanine Aminotransferase (ALT/SGPT) 142 12-78 U/L Alkaline Phosphatase 308 45-117 U/L Total Protein 5.4 6.4-8.2 gm/dl Albumin 3.2 3.4-5.0 gm/dl Prothrombin Time 17.1 9.0-12.0 SECONDS Prothromb Time International Ratio 1.6 0.9-1.1
[2016-11-23] MEDS: AMITRIPTYLINE HCL 10 MG TAB PO SCH (20:08)
[2016-11-24 00:40] VITALS: BP 116/78; PULSE 84; TEMP 36.5; O2SAT 93
[2016-11-24 07:16] VITALS: BP 109/74; PULSE 84; TEMP 36.7; O2SAT 97
[2016-11-24] MEDS: CEROVITE ADV FORMULA TAB PO SCH (07:58)
[2016-11-24] MEDS: THIAMINE HCL 100 MG TAB PO SCH (07:58)
[2016-11-24] MEDS: METOPROLOL SUCC 50MG EXT REL TAB PO SCH (07:58)
[2016-11-24] MEDS: POT PHOSPHATE MONOBASIC W/ SOD TAB PO SCH ×4 (07:59→18:56)
[2016-11-24] MEDS: TAMSULOSIN HCL 0.4 MG CAP PO SCH (07:59)
[2016-11-24] MEDS: MAGNESIUM CHLORIDE 64MG DELAYED REL TAB PO SCH ×2 (07:59→18:57)
[2016-11-24] MEDS: RIFAXIMIN TAB 550 MG TAB PO SCH ×2 (07:59→18:58)
[2016-11-24] MEDS: PANTOprazole SOD 40 MG TAB PO SCH ×2 (07:59→18:57)
[2016-11-24] MEDS: PENTOXIFYLLINE 400MG EXT REL TAB PO SCH ×3 (07:59→18:58)
[2016-11-24 08:00] VITALS: O2SAT 97
[2016-11-24] MEDS: CALCIUM CARBONATE 500 MG CHEWABLE PO SCH ×2 (08:00→18:58)
[2016-11-24] MEDS: MULTIVITAMIN TAB PO SCH (08:00)
[2016-11-24] MEDS: DULOXETINE (CYMBALTA) 30 MG CAP PO SCH (08:01)
[2016-11-24 15:07] VITALS: BP 106/74; PULSE 90; TEMP 36.6; O2SAT 92
--- NOTE | 2016-11-24 17:26 | Progress Note ---
Internal Med Progress Note Date of Service: Nov 24, 2016. Provider Documentation: SUBJECTIVE: alert and awake can tel his name and knows he is in hospital says his appetite is getting better denies any pain no sob afebrile OBJECTIVE: Vital Signs-as noted below Exam: General-alert and awake Neck-no neck masses Lungs-cta b/l no wheezing or crackles Heart-s1 and s2 heard regular rate and rhythm no murmurs Abdomen-soft bowel sounds present non tender no distension Extremities-no erythema Neuro-alert and awake moves extremities Lab data as noted below. ASSESSMENT & PLAN: : This is a 51-year-old with chronic alcoholism, who was sent in because of abnormal laboratories and possible sepsis which was ruled out. developed alcohol hepatitis. Alcoholic Hepatitis with Hepatic Failure Was admitted in September with same issue Now with increased LFTs and confusion Was on Prednisone before Appreciate GI input LFTs are getting worse Plan for follow up in [place] if improves on Trental appreciate Gi inputs f/u labs in am Alcoholism.-Keeps on drinking Last drink 11/15/16 Continue DT prophylaxis received Librium and iv Ativan currently off of Librium. Started on Pentoxifylline for Alcoholic Hepatitis will monitor Depression and Lacks motivation May need psychiatric evaluation if improves Electrolytes Imbalance Supplement and recheck f/u labs in am ARF from abx? sepsis?dehydration resolved. Possible sepsis, ruled out tachycardia and elevated white count.UTI? ascitic fluid analysis no elevated wbc. was on iv vanco and Zosyn will f/u cx BP stable abx stopped. . Question of liver mass which has increased in size from the previous ultrasound in August, but MRI done as outpatient and there was no suggestion of hepatocellular carcinoma, but his AFP level was somewhat high. Repeat AFP levels and followup with Hepatology at [place] as per GI. . History of thrombocytopenia .77 . We will follow laboratories. History of generalized weakness, pain and fall secondary to his alcoholism. Physical and occupational therapies when patient is more stable. History of stroke, no residual deficits. We are holding aspirin for now. History of depression, on Cymbalta. We will follow his liver function tests. History of chronic systolic heart failure secondary to alcoholic cardiomyopathy, we will be holding the diuretics for now for sepsis. We will monitor for any volume overload. Echocardiogram done on last admission in September shows ejection fraction of 60-65% and grade 1 diastolic dysfunction. Lasix and Aldactone on hold. will monitor. History of deep vein thrombosis in the right cephalic vein in 2013, not on any anticoagulation. History of supraventricular tachycardia. The patient received adenosine in the Emergency Room. Missed his Lopressor today. Holding Lopressor for sepsis. Restarted Lopressor. Hyponatremia; sodium is 123, mostly secondary to his alcoholism and it improved with normal fluids on last admission. We will follow laboratories closely to prevent overcorrection. If not improving, we will consult nephrology. Holding diuretics. resolved Deep venous thrombosis prophylaxis, SCDs for now. DISPOSITION:Monitor in tele floor. Level 1. Full code, as per discussion with the patient only on the chance of recovery. Closely monitor on tele floor. Will d/w with patient when more stable about further care as non compliant with the advise and preparing for his . Code status: at admission patient wanted to be full code if there is chance of recovery only. Vital Signs: Date Time Temp Pulse Resp B/P Pulse Ox O2 Delivery O2 Flow Rate FiO2 11/24/16 16:00 Room Air 11/24/16 15:07 36.6 90 19 106/74 92 Room Air 11/24/16 08:00 97 Room Air 11/24/16 07:16 36.7 84 20 109/74 97 Room Air 11/24/16 00:40 36.5 84 18 116/78 93 Room Air 11/24/16 00:00 Room Air
[2016-11-24] MEDS: LORAZEPAM 2 MG/ML 1 ML VIAL IV PRN (18:56)
[2016-11-24] MEDS: AMITRIPTYLINE HCL 10 MG TAB PO SCH (18:57)
[2016-11-24 23:56] VITALS: BP 105/72; PULSE 99; TEMP 36.8; O2SAT 95
[2016-11-25] VITALS (9 sets, daily range): BP systolic 49–106; BP diastolic 17–68; PULSE 93–125; TEMP 36.6–36.7; O2SAT 94–100
[2016-11-25] MEDS: LORAZEPAM INJ 2 MG in SYRINGE 1 ML IV PRN ×2 (03:14→10:05)
[2016-11-25] MEDS: CALCIUM CARBONATE 500 MG CHEWABLE PO SCH ×2 (07:51→21:00)
[2016-11-25] MEDS: POT PHOSPHATE MONOBASIC W/ SOD TAB PO SCH ×4 (07:51→21:00)
[2016-11-25] MEDS: DULOXETINE (CYMBALTA) 30 MG CAP PO SCH (07:51)
[2016-11-25] MEDS: PENTOXIFYLLINE 400MG EXT REL TAB PO SCH ×3 (07:51→21:00)
[2016-11-25] MEDS: MAGNESIUM CHLORIDE 64MG DELAYED REL TAB PO SCH ×2 (07:51→21:00)
[2016-11-25] MEDS: RIFAXIMIN TAB 550 MG TAB PO SCH ×2 (07:51→21:00)
[2016-11-25] MEDS: MULTIVITAMIN TAB PO SCH (07:52)
[2016-11-25] MEDS: PANTOprazole SOD 40 MG TAB PO SCH ×2 (07:52→21:00)
[2016-11-25] MEDS: THIAMINE HCL 100 MG TAB PO SCH (07:52)
[2016-11-25] MEDS: CEROVITE ADV FORMULA TAB PO SCH (07:52)
[2016-11-25] MEDS: TAMSULOSIN HCL 0.4 MG CAP PO SCH (07:52)
[2016-11-25] MEDS: METOPROLOL SUCC 50MG EXT REL TAB PO SCH (07:52)
[2016-11-25 08:04] LABS: HEMATOCRIT 34.2 % (42-52); MEAN CELL VOLUME 98.3 fL (80-100); MEAN CORPUSCULAR HEMOGLOBIN 35.6 pg (25-34); MEAN CORPUSCULAR HGB CONC 36.3 g/dl (32-36); MEAN PLATELET VOLUME 10.6 fL (7.4-10.4); PLATELET COUNT 155 K/uL (130-400); RED BLOOD COUNT 3.48 M/uL (4.7-6.1); WHITE BLOOD COUNT 24.93 K/uL (4.8-10.8)
[2016-11-25 08:29] LABS: BASO % 0.6 %; BASO ABS # 0.16 K/uL (0-0.2); COMPLETE YES; EOS % 1.1 %; IG% 0.8 %; LYMPH % 19.1 %; LYMPH ABS # 4.77 K/uL (1.2-3.4); MONO % 7.7 %; NEUT % 70.7 %
[2016-11-25 08:35] LABS: BUN/CREATININE RATIO 17.6 (10-20); CALCIUM 7.8 mg/dl (8.5-10.1); MAGNESIUM 1.6 mg/dl (1.8-2.4); PHOSPHORUS 3.2 mg/dl (2.5-4.9); POTASSIUM 4.2 mmol/L (3.5-5.1)
[2016-11-25] MEDS ORDERED: D5W AND NSS 1,000 ML IV SCH (13:15)
[2016-11-25] MEDS ORDERED: PIPERACILL/TAZOBAC IV 3.375 GM in DEXTROSE 5% 100ML 100 ML IV ONE (13:28)
[2016-11-25] MEDS ORDERED: PIPERACILL/TAZOBAC CONSULT ACTIVE PRN (13:30)
[2016-11-25] MEDS ORDERED: MAGNESIUM SULFATE 1GM / D5W 1 GM in PREMIXED IN D5W 100 ML IV ONE (14:00)
[2016-11-25] MEDS ORDERED: SODIUM CHLORIDE 0.9% 1000ML 1,000 ML IV SCH (16:15)
[2016-11-25] MEDS ORDERED: SODIUM CHLORIDE 0.9% 1000ML 1,000 ML IV ONE (16:30)
[2016-11-25] MEDS ORDERED: VANCOMYCIN CONSULT ACTIVE PRN (17:00)
[2016-11-25] MEDS ORDERED: VANCOMYCIN INJ 2,800 MG in SODIUM CHLORIDE 0.9% 500ML 500 ML IV SCH (17:00)
[2016-11-25] MEDS: SODIUM CHLORIDE 0.9% 1000ML 1,000 ML IV SCH (17:16)
--- NOTE | 2016-11-25 17:33 | Pharmacy Progress Note ---
Pharmacy Antibiotic Consult Date of Service: Nov 25, 2016. Pharmacy Dosing Scope Pharmacy is consulted to initiate Vancomycin IV dosing therapy, order appropriate labs and adjust drug dose/frequency for suspected pulmonary source. Subjective The patient is a 51 year old male admitted on Nov 15, 2016 at 18:03 with a gastrointestinal infection now receiving IV Zosyn for pulmonary process and empirically re-adding IV Vancomycin (Paitnet received IV Vancomycin during this admission from Nov 15-Nov 19, 2016. Objective Height (Feet): 6 Height (Inches): 1.00 Weight (Kilograms): 118.700 Lab Results (24hrs): Laboratory Tests Test 11/25/16 07:47 11/25/16 16:08 BUN/Creatinine Ratio 17.6 Blood Urea Nitrogen 18 mg/dl Creatinine 1.00 mg/dl White Blood Count 24.93 K/uL Red Blood Count 3.48 M/uL Hemoglobin 12.4 g/dL Hematocrit 34.2 % Mean Corpuscular Volume 98.3 fL Mean Corpuscular Hemoglobin 35.6 pg Mean Corpuscular Hemoglobin Concent 36.3 g/dl Platelet Count 155 K/uL Mean Platelet Volume 10.6 fL Neutrophils (%) (Auto) 70.7 % Lymphocytes (%) (Auto) 19.1 % Monocytes (%) (Auto) 7.7 % Eosinophils (%) (Auto) 1.1 % Basophils (%) (Auto) 0.6 % Neutrophils # (Auto) 17.59 K/uL Lymphocytes # (Auto) 4.77 K/uL Monocytes # (Auto) 1.93 K/uL Eosinophils # (Auto) 0.27 K/uL Basophils # (Auto) 0.16 K/uL Micro Results: Item Value Date Time Blood Culture Received 11/25/16 1500 Blood Pending C.difficile Toxin B Gene (PCR) - Final Complete 11/25/16 1440 Stool No C. difficile toxin B gene detected Blood Culture Received 11/25/16 1420 Blood Pending Blood Culture - Final Complete 11/16/16 0617 Blood NO GROWTH Blood Culture - Final Complete 11/16/16 0605 Blood NO GROWTH Acid Fast Stain - Final Resulted 11/16/16 0000 Ascities Fluid Gram Stain - Final Complete 11/16/16 0000 Ascities Fluid Urine Culture - Final Complete 11/15/16 2355 Urine , Clean Catch NO GROWTH - LESS THAN 1,000 COLONIES/ML Recent Pertinent Medications Item Value Date Time Vancomycin HCl 1 ea 11/25/16 1700 (Consult) UD PRN/N/A Piperacillin Sod/ 1 ea 11/25/16 1330 Tazobactam Sod UD PRN/N/A (Consult) Piperacillin Sod/ 115 ml @ 28.75 mls/hr 11/16/16 0200 Tazobactam Sod Q8H/IV 11/21/16 1843 3.375 gm/Dextrose Vancomycin HCl 556 ml @ 200 mls/hr 11/15/16 2030 2800 mg/Sodium 2030/IV 11/15/162001 Chloride Multivitamins 10 1,011.2 ml @ 200 mls/hr 11/15/16 2000 ml/Thiamine HCl .Q5H4M ONCE/IV 11/15/16 1956 100 mg/Folic Acid 1 mg/Sodium Chloride Piperacillin Sod/ 115 ml @ 230 mls/hr 11/15/161999 Tazobactam Sod 2000 ONCE/IV 11/15/16 1957 3.375 gm/Dextrose Vancomycin HCl 534 ml @ 200 mls/hr 11/16/16 0800 1700 mg/Sodium Q12H/IV 11/17/16 0941 Chloride Assessment & Plan As Stated above, patient received IV Vancomycin during this admission. Scr 1.00 mg/dL today thus renal function appears stable, thus will start at the same stable dose as identified on Nov 19, 2016. Loading dose: Vancomycin 2800 mg IV X 1 dose then: Vancomycin 1500mg mg IV every 14 hours. Goal peak level estimate: between 30 - 40 mcg/mL. Goal trough level estimate: between 15 - 20 mcg/mL.(high trough goals due to pulmonary process) Vancomycin trough level has been ordered for: 11/28/2016 prior to the 0600 hours dose. Pharmacy will continue to follow and will adjust dose/frequency as necessary. Thank you
--- NOTE | 2016-11-25 18:01 | DIAGNOSTIC IMAGING REPORT ---
CHEST ONE VIEW PORTABLE CLINICAL HISTORY: congestion/infilatrate? Dyspnea COMPARISON STUDY: 11/22/2016 FINDINGS: The bones soft tissues and hemidiaphragms are normal. The cardiomediastinal silhouette is normal. The lungs are clear. The pulmonary vasculature is normal. IMPRESSION: Negative chest. Electronically signed by: Hernandez Pisano M.D. 11/25/2016 6:00 PM Dictated Date/Time: 11/25/2016 5:59 PM
[2016-11-25] MEDS: MoRPHine SULFATE 2 MG/ML CARP IV PRN ×2 (18:13→21:51)
--- NOTE | 2016-11-25 18:39 | Progress Note ---
Internal Med Progress Note Date of Service: Nov 25, 2016. Provider Documentation: SUBJECTIVE: PATIENT DROWSY BUT ABLE TO OPEN EYES MUMBLES TACHYPNEIC TACHYCARDIC MOTTLING OF SKIN ON EXTREMITIES LEUKOCYTOSIS D/W fAMILY -OK FOR ABX AND FLUIDS BUT IF NO IMPROVEMENT PLAN FOR COMFORT CARE COULDN'T GET LABS PATIENT IS HARD STICK AND FAMILY OK WITH GETTING LABS IN AM OBJECTIVE: Vital Signs-as noted below Exam: General-Drowsy. Open eyes Neck-no neck masses Lungs-cta b/l no wheezing or crackles Heart-s1 and s2 heard tachycardia no murmurs Abdomen-soft bowel sounds present mild distension Extremities-no erythema no edema Neuro-drowsy moves extremities Lab data as noted below. ASSESSMENT & PLAN: : This is a 51-year-old with chronic alcoholism, who was sent in because of abnormal laboratories and possible sepsis which was ruled out. developed alcohol hepatitis.and today again went to sepsis Sepsis severe 11/25/16 started on iv abx Zosyn and vancomycin got litre of ns bolus and iv ns@200ml/hr follow cx Patient is dnr/dni If no improvement family wants comfort care to keep patient comfortable Ativan and morphine prn Alcoholic Hepatitis with Hepatic Failure Was admitted in September with same issue Now with increased LFTs and confusion Was on Prednisone before Appreciate GI input LFTs are getting worse Plan for follow up in [place] if improves on [place] appreciate Gi inputs Will f/u labs in am patient on hospice list Alcoholism.-Keeps on drinking Last drink 11/15/16 Continue DT prophylaxis received Librium and iv Ativan currently off of Librium. Started on Pentoxifylline for Alcoholic Hepatitis iv Ativan prn will monitor Depression and Lacks motivation May need psychiatric evaluation if improves Electrolytes Imbalance Supplement and recheck today am labs ok f/u labs in am ARF from abx? sepsis?dehydration resolved. Possible sepsis on initial presentation, ruled out tachycardia and elevated white count.UTI? ascitic fluid analysis no elevated wbc. was on iv vanco and Zosyn will f/u cx BP stable abx stopped but restarted today 11/25/16 for sepsis . Question of liver mass which has increased in size from the previous ultrasound in August, but MRI done as outpatient and there was no suggestion of hepatocellular carcinoma, but his AFP level was somewhat high. Repeat AFP levels and followup with Hepatology at [place] as per GI. . History of thrombocytopenia .155 . We will follow laboratories. History of generalized weakness, pain and fall secondary to his alcoholism. Physical and occupational therapies when patient is more stable. History of stroke, no residual deficits. We are holding aspirin for now. History of depression, on Cymbalta. We will follow his liver function tests. History of chronic systolic heart failure secondary to alcoholic cardiomyopathy, we will be holding the diuretics for now for sepsis. We will monitor for any volume overload. Echocardiogram done on last admission in September shows ejection fraction of 60-65% and grade 1 diastolic dysfunction. Lasix and Aldactone on hold. will monitor while on aggressive fluids. History of deep vein thrombosis in the right cephalic vein in 2013, not on any anticoagulation. History of supraventricular tachycardia. The patient received adenosine in the Emergency Room. Missed his Lopressor today. Holding Lopressor for sepsis. Restarted Lopressor will hold again for sepsis. Hyponatremia; sodium is 123, mostly secondary to his alcoholism and it improved with normal fluids on last admission. We will follow laboratories closely to prevent overcorrection. If not improving, we will consult nephrology. Holding diuretics. resolved Deep venous thrombosis prophylaxis, SCDs for now. DISPOSITION:Transferred to tele floor. Currently DNR. Vital Signs: Date Time Temp Pulse Resp B/P Pulse Ox O2 Delivery O2 Flow Rate FiO2 11/25/16 18:27 100 Nasal Cannula 3.0 11/25/16 18:00 125 35 100/63 11/25/16 17:41 36.6 93 20 96 4.0 11/25/16 16:00 Nasal Cannula 4.0 11/25/16 08:00 96 Room Air 11/25/16 07:36 36.6 93 20 106/68 96 Room Air 11/25/16 00:00 Room Air 11/24/16 23:56 36.8 99 20 105/72 95 Room Air Lab Results: Results Past 24 Hours Test 11/25/16 07:47 Range/Units White Blood Count 24.93 4.8-10.8 K/uL Red Blood Count 3.48 4.7-6.1 M/uL Hemoglobin 12.4 14.0-18.0 g/dL Hematocrit 34.2 42-52 % Mean Corpuscular Volume 98.3 80-100 fL Mean Corpuscular Hemoglobin 35.6 25-34 pg Mean Corpuscular Hemoglobin Concent 36.3 32-36 g/dl Platelet Count 155 130-400 K/uL Mean Platelet Volume 10.6 7.4-10.4 fL Neutrophils (%) (Auto) 70.7 % Lymphocytes (%) (Auto) 19.1 % Monocytes (%) (Auto) 7.7 % Eosinophils (%) (Auto) 1.1 % Basophils (%) (Auto) 0.6 % Neutrophils # (Auto) 17.59 1.4-6.5 K/uL Lymphocytes # (Auto) 4.77 1.2-3.4 K/uL Monocytes # (Auto) 1.93 0.11-0.59 K/uL Eosinophils # (Auto) 0.27 0-0.5 K/uL Basophils # (Auto) 0.16 0-0.2 K/uL RDW Standard Deviation 64.2 36.4-46.3 fL RDW Coefficient of Variation 17.9 11.5-14.5 % Immature Granulocyte % (Auto) 0.8 % Immature Granulocyte # (Auto) 0.21 0.00-0.02 K/uL Sodium Level 137 136-145 mmol/L Potassium Level 4.2 3.5-5.1 mmol/L Chloride Level 104 98-107 mmol/L Carbon Dioxide Level 22 21-32 mmol/L Anion Gap 11.0 3-11 mmol/L Blood Urea Nitrogen 18 7-18 mg/dl Creatinine 1.00 0.60-1.40 mg/dl Est Creatinine Clear Calc Drug Dose 116.6 ml/min Estimated GFR () 99.8 Estimated GFR (Non- 86.2 BUN/Creatinine Ratio 17.6 10-20 Random Glucose 92 70-99 mg/dl Calcium Level 7.8 8.5-10.1 mg/dl Phosphorus Level 3.2 2.5-4.9 mg/dl Magnesium Level 1.6 1.8-2.4 mg/dl Total Bilirubin 9.3 0.2-1 mg/dl Direct Bilirubin 6.6 0-0.2 mg/dl Aspartate Amino Transf (AST/SGOT) 76 15-37 U/L Alanine Aminotransferase (ALT/SGPT) 102 12-78 U/L Alkaline Phosphatase 355 45-117 U/L Total Protein 6.0 6.4-8.2 gm/dl Albumin 2.8 3.4-5.0 gm/dl Microbiology Results 11/25/16 Blood Culture, Received Pending 11/25/16 Blood Culture, Received Pending 11/25/16 MRSA DNA Surveillance Screen, Received Pending 11/25/16 C.difficile Toxin B Gene (PCR) - Final, Complete No C. difficile toxin B gene detected
[2016-11-25] MEDS ORDERED: PIPERACILL/TAZOBAC IV 3.375 GM in DEXTROSE 5% 100ML IV SCH (20:00)
[2016-11-25] MEDS: AMITRIPTYLINE HCL 10 MG TAB PO SCH (21:00)
[2016-11-26] VITALS: BP 86/64; PULSE 102; TEMP 36.3; O2SAT 97
[2016-11-26] MEDS: SODIUM CHLORIDE 0.9% 1000ML 1,000 ML IV SCH ×2 (02:14→03:28)
[2016-11-26] MEDS: MoRPHine SULFATE 2 MG/ML CARP IV PRN (03:00)
[2016-11-26] MEDS ORDERED: MoRPHine SULFATE 2 MG/ML CARP IV PRN (03:30)
[2016-11-26] MEDS ORDERED: NURSING VERBAL MED ORDER ONE (03:45)
[2016-11-26] MEDS ORDERED: SODIUM CHLORIDE 0.9% 1000ML 1,000 ML IV SCH (04:00)
--- NOTE | 2016-11-26 06:17 | Progress Note ---
Progress Note PRONOUNCEMENT Patient ceased to breathe at 04:35.. Pupils midposition / fixed. No heart sounds or respirations. Cause of (preliminary): possible sepsis hepatic failure due to alcoholic hepatitis .
--- NOTE | 2016-11-26 07:59 | Palliative Care Consultation ---
Consultation Date of Consultation: Nov 23, 2016. Requesting Physician: Dr. Christopher Attending Physician: Dr. Christopher Reason for Consultation: Goals of care History of Present Illness This 51 year old male patient presented to the ED a week ago with complaints of abnormal outpatient labs: elevated LFTS, alcohol, leukocytosis, and hyponatremia. He has a significant past medical history of alcoholic cirrhosis, hepatorenal syndrome, alcoholic cardiomyopathy, and others listed below. He lives at home alone and drinks alcohol daily, has gone through rehab in the past. While here in the hospital, patient did go through DTs over the weekend, and continues to have electrolyte abnormalities. He's also encephalopathic and confused at this time. Patient continues to state that he wants to , he even bought his own casket last week. However, he remains a full code as he said he would want to be revived if there was hope for recovery. Yesterday and today, patient reportedly has not been wanting to take his PO medications. He is disoriented, questionable whether or not he is able to make decisions for himself. His ex- is his POA, two sons help make decisions as well. The patient also has a girlfriend, Selena, who is involved in his care. Palliative care consulted to assist in establishing goals of care. The patient is very confused and disoriented today. He is restless in the bed and not really able to participate in conversation. He denied pain or discomfort , knew he was in the hospital. I met with the patient's ex-/POA, Selena Thomas, his girlfriend Selena, and a [id number] Yenny. We discussed patient's current medical condition and goals of care. Selena Thomas states that the patient is very depressed living at home alone, and that is why he drinks. When he is going through periods of "loneliness," that is when he says things like "I want to ." Other times, when he is a round family, he states that he doesn't want to and does want to get better. All three family members were in agreement that the patient is not going to be able to go home alone, and they were mostly interested in speaking about options for discharge planning such as SNFs. As far as the patient's medical care, the goal is to get him better to the point of being able to care for himself again and be oriented as possible. The family would like to continue treatment as is, however, they and the patient did decide earlier today to make him DNR/DNI as discussed with Dr. Christopher. Past Medical/Surgical History Medical History: Hypertension Asthma Hyperlipidemia Morbid obesity Sleep apnea Anxiety Chewing tobacco Alcoholism Liver cirrhosis Hepatorenal syndrome SVT Alcoholic cardiomyopathy Hypomagnesemia Surgical History: Hemorrhoidectomy with internal banding Right knee arthroscopy T&A Social History Smoking Status: Former Smoker History of Alcohol Use: Yes (UNKNOWN) Drug Use: none Marital Status: Housing Status: lives alone Occupation Status: employed Review of Systems unable to obtain Allergies Coded Allergies: Amlodipine (Verified Allergy, Unknown, nausea/vomiting/shakes, 11/15/16) Physical Exam Date Time Temp Pulse Resp B/P Pulse Ox O2 Delivery O2 Flow Rate FiO2 11/26/16 00:00 36.3 102 33 86/64 97 Nasal Cannula 3.0 11/26/16 00:00 97 Nasal Cannula 3.0 11/25/16 20:15 36.7 117 37 96/63 95 Nasal Cannula 3.0 11/25/16 20:13 115 34 66/17 94 11/25/16 20:09 117 55 49/38 95 11/25/16 20:00 95 Nasal Cannula 3.0 11/25/16 18:27 100 Nasal Cannula 3.0 11/25/16 18:00 125 35 100/63 11/25/16 17:41 36.6 93 20 96 4.0 11/25/16 16:00 Nasal Cannula 4.0 11/25/16 08:00 96 Room Air No physical assessment was done at this time due to patient being disoriented and restless/agitated in bed. Laboratory Results Last 24 Hours Test 11/25/16 07:47 White Blood Count 24.93 K/uL Red Blood Count 3.48 M/uL Hemoglobin 12.4 g/dL Hematocrit 34.2 % Mean Corpuscular Volume 98.3 fL Mean Corpuscular Hemoglobin 35.6 pg Mean Corpuscular Hemoglobin Concent 36.3 g/dl Platelet Count 155 K/uL Mean Platelet Volume 10.6 fL Neutrophils (%) (Auto) 70.7 % Lymphocytes (%) (Auto) 19.1 % Monocytes (%) (Auto) 7.7 % Eosinophils (%) (Auto) 1.1 % Basophils (%) (Auto) 0.6 % Neutrophils # (Auto) 17.59 K/uL Lymphocytes # (Auto) 4.77 K/uL Monocytes # (Auto) 1.93 K/uL Eosinophils # (Auto) 0.27 K/uL Basophils # (Auto) 0.16 K/uL RDW Standard Deviation 64.2 fL RDW Coefficient of Variation 17.9 % Immature Granulocyte % (Auto) 0.8 % Immature Granulocyte # (Auto) 0.21 K/uL Sodium Level 137 mmol/L Potassium Level 4.2 mmol/L Chloride Level 104 mmol/L Carbon Dioxide Level 22 mmol/L Anion Gap 11.0 mmol/L Blood Urea Nitrogen 18 mg/dl Creatinine 1.00 mg/dl Est Creatinine Clear Calc Drug Dose 116.6 ml/min Estimated GFR () 99.8 Estimated GFR (Non- 86.2 BUN/Creatinine Ratio 17.6 Random Glucose 92 mg/dl Calcium Level 7.8 mg/dl Phosphorus Level 3.2 mg/dl Magnesium Level 1.6 mg/dl Total Bilirubin 9.3 mg/dl Direct Bilirubin 6.6 mg/dl Aspartate Amino Transf (AST/SGOT) 76 U/L Alanine Aminotransferase (ALT/SGPT) 102 U/L Alkaline Phosphatase 355 U/L Total Protein 6.0 gm/dl Albumin 2.8 gm/dl Assessment & Plan Palliative Performance Scale: 20 % (bed-bound, total care, severely decreased PO intake, altered mental status) Problem list: Confusion/disorientation Weakness Decreased PO intake Alcoholic hepatitis Alcoholism Depression Electrolyte imbalance Acute renal failure Hepatic mass Goals of care (Z51.5) Palliative care plan: Discussed with patient's family as in HPI. Patient is DNR/DNI. Goal is for patient to get strong enough to be able to care for himself again, but likely will not be going home. The family verbalized understanding of the severity of patient's illness. They are certainly not ready for hospice, however I did explain hospice and their role. The patient does not have a living will or advance directive and I also encouraged them to complete these with patient when he is more coherent. The patient certainly does not want any heroic measures if he does decline. Thank you kindly for this consult. I will follow as needed.
[2016-11-26] MEDS ORDERED: VANCOMYCIN INJ 1,500 MG in SODIUM CHLORIDE 0.9% 500ML 500 ML IV SCH (12:00)
[2016-11-28] MEDS ORDERED: VANCOMYCIN TROUGH ONE (05:30)
--- NOTE | 2016-11-28 18:18 | Discharge Summary ---
Discharge Summary Admission Date: Nov 15, 2016 at 18:03 Discharge Disposition: Home () Principal Diagnosis: severe sepsis alcohol hepatitis alcoholism alcohol withdrawal SVT ARF Secondary Diagnoses/Problems: hypertension, asthma, hyperlipidemia, morbid obesity, sleep apnea, anxiety, history of snuff use, history of alcoholism with multiple admissions, liver cirrhosis, hepatorenal syndrome, history of SVT, history of alcoholic cardiomyopathy, history of hypomagnesemia Procedures: head ct: No significant change compared to the prior study. No acute intracranial abnormality. CERVICAL SPINE CT: No fractures within the cervical spine. CTA CHEST ,ABDOMEN/PELVIS: 1. No aortic dissection. No acute process within the chest. 2. Cirrhosis with moderate to large ascites. 3. 6.5 x 4.9 x 3.9 cm hypervascular segment 5 hepatic lesion. This is similar to ultrasound of September 25, 2016 but increased in size from earlier studies. Given cirrhosis, this is concerning for hepatocellular carcinoma and correlation with AFP levels is recommended. Focal nodular hyperplasia could appear similar. 4. Wall thickening of the distal stomach. This could be due to underdistention or gastritis. 5. Colonic wall thickening, most evident within the ascending colon. This is likely due to portal hypertension although colitis could appear similar. PARACENTESIS: Ultrasound-guided diagnostic paracentesis with removal of 1 liters of ascites. The fluid was sent to the laboratory for analysis. PARACENTESIS: Successful ultrasound-guided paracentesis with removal of approximately 3 liters of ascitic fluid. LIVER US: Technically difficult exam but hepatic vessels appear patent with appropriately directed flow. HEAD CT 11/21/16: No acute intracranial findings ABDOMINAL US 11/22/16: 1. There is a small volume of abdominopelvic ascites. 2. Cirrhotic liver morphology and splenomegaly. CXR 11/25/16: Negative chest. Consultations: GI NEPHROLOGY PALLIATIVE CARE Admission Information HPI (per Admitting provider): This is a 51-year-old male with a past medical history significant for hypertension, asthma, hyperlipidemia, morbid obesity, sleep apnea, anxiety, history of snuff use, history of alcoholism with multiple admissions, liver cirrhosis, hepatorenal syndrome, history of SVT, history of alcoholic cardiomyopathy, history of hypomagnesemia was advised to come to the hospital because his outpatient labs done couple of days ago showed increased ammonia level, alcohol level 292, increased leukocytosis, hyponatremia, worsening LFTs and thought if some infectious process was going on. The patient is alert and oriented, says last drink was today morning; he drank 2 glasses of vodka. He has not stopped drinking though counseled in the past and was in the rehab in the past. The patient says his ambulatory function is poor at home. He lives alone, but a lady comes and helps him and his family helps him. He states he goes with the lady to get his drinks. He says, recently he bought a casket and bought piece of land to bury him and he was preparing for his . He thinks it is coming, but patient says he wanted to be a full code in case there is a chance of recovery. He complains of pain all over the body. He denies any shortness of breath, cough, blurred vision or dizziness. No nausea, no vomiting. He has some abdominal discomfort, had a small bowel movement yesterday. Currently is afebrile. The patient was tachycardic and heart rate was in the 180s in the ER. After 6 mg of adenosine his heart rate is currently in the 120s, blood pressure is stable, alert, oriented and answering all the questions appropriately. Physical Exam (per Admitting): GENERAL: The patient is morbidly obese, not in acute distress. VITAL SIGNS: Temperature 36.8, pulse in 120s now, blood pressure 101/75 and oxygen 95% on room air. HEENT: No pallor or icterus present. Pupils are equal, round and reactive to light. NECK: No JVD, no neck masses, no carotid bruits. CARDIOVASCULAR: S1, S2 heard. Tachycardia. No murmurs. RESPIRATORY SYSTEM: Clear to auscultation bilaterally. No accessory muscle use. No wheezing, no crackles. ABDOMEN: Soft, bowel sounds present. Mild diffuse discomfort. Mild distention. CENTRAL NERVOUS SYSTEM: Cranial nerves II-XII are grossly intact. Nonfocal. EXTREMITIES: No edema, no erythema. Hospital Course : This is a 51-year-old with chronic alcoholism, who was sent in because of abnormal laboratories and possible sepsis which was ruled out. developed ALCOHOL WITHDRAWAL AND alcohol hepatitis.and today 11/25/16 again went to sepsis/SEVERE SEPSIS. DISCUSSED WITH FAMILY . TO CONTINUE ABX AND FLUIDS AND IF NO IMPROVEMENT PLAN FOR COMFORT CARE.PATIENT DECLINED AND WAS MADE COMFORT CARE AND AT 04:35AM ON 11/26/16. HOSPITAL COURSE: Sepsis severe 11/25/16 started on iv abx Zosyn and vancomycin got litre of ns bolus and iv ns@200ml/hr follow cx Patient is dnr/dni If no improvement family wants comfort care to keep patient comfortable Ativan and morphine prn Alcoholic Hepatitis with Hepatic Failure Was admitted in September with same issue Now with increased LFTs and confusion Was on Prednisone before Appreciate GI input LFTs are getting worse Plan for follow up in [place] if improves on [place] appreciate Gi inputs Will f/u labs in am patient on hospice list Alcoholism.-Keeps on drinking Last drink 11/15/16 Continue DT prophylaxis received Librium and iv Ativan currently off of Librium. Started on Pentoxifylline for Alcoholic Hepatitis iv Ativan prn will monitor Depression and Lacks motivation May need psychiatric evaluation if improves Electrolytes Imbalance Supplement and recheck today am labs ok f/u labs in am ARF from abx? sepsis?dehydration resolved. Possible sepsis on initial presentation, ruled out tachycardia and elevated white count.UTI? ascitic fluid analysis no elevated wbc. was on iv vanco and Zosyn will f/u cx BP stable abx stopped but restarted today 11/25/16 for sepsis . Question of liver mass which has increased in size from the previous ultrasound in August, but MRI done as outpatient and there was no suggestion of hepatocellular carcinoma, but his AFP level was somewhat high. Repeat AFP levels and followup with Hepatology at [place] as per GI. . History of thrombocytopenia .155 . We will follow laboratories. History of generalized weakness, pain and fall secondary to his alcoholism. Physical and occupational therapies when patient is more stable. History of stroke, no residual deficits. We are holding aspirin for now. History of depression, on Cymbalta. We will follow his liver function tests. History of chronic systolic heart failure secondary to alcoholic cardiomyopathy, we will be holding the diuretics for now for sepsis. We will monitor for any volume overload. Echocardiogram done on last admission in September shows ejection fraction of 60-65% and grade 1 diastolic dysfunction. Lasix and Aldactone on hold. will monitor while on aggressive fluids. History of deep vein thrombosis in the right cephalic vein in 2013, not on any anticoagulation. History of supraventricular tachycardia. The patient received adenosine in the Emergency Room. Missed his Lopressor today. Holding Lopressor for sepsis. Restarted Lopressor will hold again for sepsis. Hyponatremia; sodium is 123, mostly secondary to his alcoholism and it improved with normal fluids on last admission. We will follow laboratories closely to prevent overcorrection. If not improving, we will consult nephrology. Holding diuretics. resolved Deep venous thrombosis prophylaxis, SCDs for now. DISPOSITION:Transferred to tele floor. Currently DNR. Total time spent on discharge = 30MINUTES This includes examination of the patient, discharge planning, medication reconciliation, and communication with other providers. Discharge Instructions NO D/C INSTRUCTIONS PATIENT .
== END 2016-11-26 07:07 | disposition expired | DRG 872 ==
LOC: CANRESERV → ENRESERVDT → ENRESERVTM → C.EDB 13:20 → C.2T 18:03 → C.4E 11-22 15:03 → CANBEDREQ 11-25 16:25 → C.MSICU 11-25 16:32
PROVIDERS: ADMIT Internal Medicine; ATTEND Internal Medicine
PROC: 0W9G3ZX Drainage of Peritoneal Cavity, Percutaneous Approach, Diagnostic (ICD-10-PCS; principal; 2016-11-15)
DX: A41.9 Sepsis, unspecified organism (principal); E87.1 Hypo-osmolality and hyponatremia; I47.1 Supraventricular tachycardia; I42.6 Alcoholic cardiomyopathy; K76.6 Portal hypertension; I50.22 Chronic systolic (congestive) heart failure; N17.9 Acute kidney failure, unspecified; E66.01 Morbid (severe) obesity due to excess calories; F10.20 Alcohol dependence, uncomplicated; R65.20 Severe sepsis without septic shock; J45.909 Unspecified asthma, uncomplicated; Z86.718 Personal history of other venous thrombosis and embolism; G47.33 Obstructive sleep apnea (adult) (pediatric); Z87.891 Personal history of nicotine dependence; K70.31 Alcoholic cirrhosis of liver with ascites; Z86.73 Personal history of transient ischemic attack (TIA), and cerebral infarction without residual deficits; K70.10 Alcoholic hepatitis without ascites; K72.90 Hepatic failure, unspecified without coma; F32.9 Major depressive disorder, single episode, unspecified; E83.42 Hypomagnesemia; E83.51 Hypocalcemia; E86.0 Dehydration